=== PATIENT | female | born 1990 | race Caucasian/White ===

== ENCOUNTER 2023-05-24 11:14 | Emergency (ER) | payer BC, SELFPAY ==
[2023-05-24 11:26] VITALS: BP 138/101; PULSE 101; RESP 18; TEMP 36.6; O2SAT 97; BMI 35.7
--- NOTE | 2023-05-24 11:26 | CRLHL7_ITS ---
For Patients: As a result of the Cures Act, medical imaging exams and procedure reports are released immediately into your electronic medical record. You may view this report before your referring provider. If you have questions, please contact your health care provider. INDICATION: SOB, COVID TECHNIQUE: Chest 2 views. COMPARISON: None. FINDINGS: Cardiovascular and mediastinum: Heart size and vasculature are normal in caliber and appearance. Lungs and pleural spaces: Lungs are clear. No sign of infiltrate or mass. No sign of pleural effusion. No pneumothorax. Bones and soft tissues: No significant findings. IMPRESSION: No acute or significant findings. Dictated by Caleb Restrepo MD @ 05/24/2023 1:01:49 PM (Electronically Signed)
--- NOTE | 2023-05-24 11:36 | ED_ITS ---
HPI - General Adult General Date Seen: 05/24/23 Chief complaint: Cough Stated complaint: Covid+ Time Seen by Provider: 05/24/23 11:15 Source: patient Mode of arrival: EMS Limitations: no limitations History of Present Illness HPI narrative: Patient is a 32-year-old female presenting to emergency department for COVID. She had a positive COVID test this morning. She states symptoms started on Saturday. States she has been having earaches, sore throat, chills, cough. States she is feeling short of breath with ambulation and says she has some mild chest pain. She has been feeling very nauseated but has not had any vomiting. Also admits to having a headache. She states she feels dehydrated because she has been unable to drink anything due to the nausea. She states she has been coughing up a greenish brown sputum. She is concerned she has another infection with this. Denies lightheadedness, dizziness, numbness, vision changes, diarrhea, constipation, dysuria Related Data Home Medications Medication Instructions Recorded Confirmed cholecalciferol (vitamin D3) 125 125 mcg PO DAILY 05/24/23 05/24/23 mcg (5,000 unit) capsule ferrous sulfate PO 05/24/23 gabapentin .ROUTE 05/24/23 omeprazole magnesium PO 05/24/23 Allergies Allergy/AdvReac Type Severity Reaction Status Date / Time ciprofloxacin Allergy Intermediate Unknown Verified 05/24/23 11:41 hydrocodone Allergy Intermediate Unknown Verified 05/24/23 11:41 Review of Systems Status of ROS: Reports: 10 or more systems reviewed and unremarkable except as noted in History and below PFS PFS Social History Smoking Status: Current every day smoker What tobacco products do you use: cigarettes Second hand tobacco smoke exposure: Yes How often do you have a drink containing alcohol: never AUDIT-C Alcohol total score: 0 Non-prescribed substance use: denies use Exam Narrative: Exam Narrative: Const: Well-nourished, Well-developed, in mild distress Eyes: PERRL, no conjunctival injection, and symmetrical lids HENT: Atraumatic external nose and ears. Moist mucous membranes. Erythematous tympanic membranes bilaterally Neck: Symmetric, trachea midline, No thyromegaly. CVS: RRR, No murmurs or gallops. Peripheral pulses 2+ and equal in all extremities RESP: Unlabored respiratory effort. Clear to auscultation bilaterally. GI: Nontender/Nondistended, No rebound or guarding. MSK:Extremities w/o deformity, Normal Active ROM Skin: Warm, Dry. No rashes or lesions. Neuro: Normal Muscle tone, No focal neurological deficits. Psych: Awake, Alert, & Oriented x3. Appropriate mood and affect. Const: Vital Signs, click to edit/add: Vital Signs - 24 hr 05/24/23 11:26 Temperature 97.8 F Pulse Rate [Pulse Oximeter] 101 H Respiratory Rate 18 Blood Pressure [Le ft Upper Arm] 138/101 H Pulse Oximetry 97 Oxygen Delivery Me thod Room Air Course Vital Signs Vital signs: Initial Vital Signs Respiratory Effort Normal 05/24/23 11:20 Respiratory Depth Normal 05/24/23 11:20 Respiratory Pattern Normal 05/24/23 11:20 Vital Signs Temperature 97.8 F 05/24/23 11:26 Pulse Rate 101 H 05/24/23 11:26 Respiratory Rate 18 05/24/23 11:26 Blood Pressure 138/101 H 05/24/23 11:26 Pulse Oximetry 97 05/24/23 11:26 Oxygen Delivery Method Room Air 05/24/23 11:26 Temperature 97.8 F 05/24/23 11:26 Pulse Rate 101 H 05/24/23 11:26 Respiratory Rate 18 05/24/23 11:26 Blood Pressure 138/101 H 05/24/23 11:26 Pulse Oximetry 97 05/24/23 11:26 Oxygen Delivery Method Room Air 05/24/23 11:26 Medications Administered Medications: Discontinued Medications Generic Name Dose Route Start Last Admin Trade Name Freq PRN Reason Stop Dose Admin Ondansetron HCl 4 mg 05/24/23 11:26 05/24/23 11:40 Ondansetron Odt 4 Mg Tab PO 05/24/23 11:27 4 mg ONCE ONE Administration Medical Decision Making MDM Narrative Medical decision making narrative: Patient is a 32-year-old female presenting to emergency department for COVID. She is having associated nausea and ear pain. Her ears do look inflamed bilaterally. This is likely viral in nature considering she has COVID. She is complaining about some mild chest pain and shortness of breath but again this is likely COVID related and not believe a full ACS workup is indicated. We will do a chest x-ray to look for any signs of pneumonia. Zofran given for nausea. On chest x-ray not see any obvious pneumonia the with an apparent bilateral ear infection and coughing up the leg green and brown sputum I will treat her with some antibiotics. While this all could be viral in nature I would is reasonable to treat for possible superimposed infection. She will be given a prescription Zofran at discharge along with azithromycin. She is agreeable with this plan. They were sent to [facility] Discharge Plan Discharge Clinical Impression: COVID Otitis media Qualifiers: Otitis media type: unspecified Chronicity: acute Qualified Code(s): H66.90 - Otitis media, unspecified, unspecified ear Patient Disposition: Home, Self-Care Condition: Improved Instructions: COVID-19 (Coronavirus Disease 2019) (ED) Additional Instructions: Take the antibiotics as directed. Return to emergency department for new worsening symptoms Prescriptions: No Action gabapentin .ROUTE ferrous sulfate [Iron (ferrous sulfate)] PO omeprazole magnesium [Prilosec OTC] PO cholecalciferol (vitamin D3) 125 mcg (5,000 unit) capsule 125 mcg PO DAILY Follow Up/Referrals: Provider,Not a Local [Primary Care Provider] - Stand Alone Forms: [employer] Info Instructions
[2023-05-24] MEDS: ONDANSETRON ODT 4 MG TAB PO (11:40)
--- NOTE | 2023-05-24 13:13 | ED.NURSE ---
Bryson called via insurance [employer] for Pt.
== END 2023-05-24 15:39 | disposition home or self-care (01) ==
PROVIDERS: Emergency Provider Student in an Organized Health Care Education/Training Program
DX: U07.1 COVID-19 (principal); H66.93 Otitis media, unspecified, bilateral
CPT/HCPCS: 71046; 99283; A9270

== ENCOUNTER 2023-06-04 21:22 | Emergency (ER) | payer BC, SELFPAY ==
[2023-06-04 21:30] VITALS: BP 130/83; PULSE 100; RESP 14; TEMP 37.8; O2SAT 99; BMI 37.1
--- NOTE | 2023-06-04 22:11 | CRLHL7_ITS ---
For Patients: As a result of the Century Cures Act, medical imaging exams and procedure reports are released immediately into your electronic medical record. You may view this report before your referring provider. If you have questions, please contact your health care provider. INDICATION: Trauma. TECHNIQUE: Multiplanar CT examination of the head was performed without the use of intravenous contrast. COMPARISON: None. FINDINGS: No loss of ernandez-white differentiation suggestive of recent territorial infarct. No intracranial hemorrhage, abnormal extra-axial fluid collection or midline shift. The ventricles and cerebral sulci are normal in caliber. The basal cisterns are patent. The visualized paranasal sinuses and mastoid air cells are clear. The visualized orbits and calvarium are unremarkable. The cerebellar tonsils are in normal position. IMPRESSION: No acute intracranial findings. Please note that all CT scans at this facility use dose modulation, iterative reconstruction, and/or weight-based dosing when appropriate to reduce radiation dose to as low as reasonably achievable. Dictated by Asif Lord MD @ 06/04/2023 11:51:31 PM (Electronically Signed)
[2023-06-04] MEDS: 0.9 % SODIUM CHLORIDE 1000 ml 1,000 ML IV (22:30)
--- NOTE | 2023-06-04 22:30 | ED.GENADULT ---
HPI - General Adult General Date Seen: 06/04/23 Chief complaint: Ear/Nose/Throat Problem Stated complaint: Sinus infection Time Seen by Provider: 06/04/23 21:28 History of Present Illness HPI narrative: This is a 32-year-old female brought to the ER today by EMS from her home for evaluation of headache, ear pain, sore throat, and facial pain. History from paramedics is that she was recently diagnosed with COVID and and also treated with a course of antibiotics for possible sinuses or ear infection. She had gotten worse today so went to the medical center now per [place]. She was apparently given a prescription for a new antibiotic. She had taken a dose that today but had worsening pain so called the ambulance. She had stable vitals EN route. In review of her records through [facility] through [employer], she has a past medical history of chronic GERD, environmental allergies, depression, PTSD, insomnia, anxiety, asthma, history of meth use, nicotine use, restless legs. No history of cancer, diabetes, or immunosuppression listed. In review of her records through [employer] care [employer], there is a call that the patient was trying to get a refill of her psych medications from Dr. Gibson. Apparently her psychiatrist had left the facility. There is a note from the nurse practitioner Katherine Judd from this morning 06/04 at 9:20 a.m. in the morning.. Notes indicate that she had is 10 days status post COVID. She has a 2 day history of worsening cough and ear pain with minor sore throat. Exam revealed erythema, injection, and cloudy effusion on both ear,. Rapid strep antigen was negative. Supportive care was recommended. Prescription for amoxicillin 875 mg b.i.d. for 7 days was prescribed. Also Tessalon for cough Reviewed the patient's medical record from [place] indicates that she was seen here in the ER on 05/24. She had cough, nasal congestion, sore throat, ear pain and had tested positive that day with an at home COVID test. Chest x-ray in the ER that day was normal. Exam revealed bilateral otitis media. She was treated with course of antibiotics (not in the records, and patient cannot recall which one, possibly amoxicillin? ) She says that a lot of her symptoms of COVID had gotten better. About 2 days ago she has had recurring symptoms with now worsening congestion, bad sore throat, facial pain, bilateral ear pain. She also running fevers. She is feeling weak. She is nauseous. She also feels a little bit disoriented, nauseous. Related Data Home Medications Medication Instructions Recorded Confirmed cholecalciferol (vitamin D3) 125 125 mcg PO DAILY 05/24/23 06/04/23 mcg (5,000 unit) capsule ferrous sulfate PO 05/24/23 gabapentin .Route 05/24/23 omeprazole magnesium PO 05/24/23 albuterol sulfate 2.5 mg/3 mL mg 06/04/23 (0.083 %) solution for nebulization albuterol sulfate 90 mcg/actuation 1 - 2 puff inhalation Q6H PRN 06/04/23 06/04/23 aerosol inhaler (Ventolin HFA) wheezing amoxicillin 875 mg tablet 875 mg PO BID 06/04/23 06/04/23 benzonatate 200 mg capsule PO 06/04/23 cetirizine 10 mg tablet 10 mg PO DAILY 06/04/23 06/04/23 cholecalciferol (vitamin D3) 1,250 1,250 mcg PO 06/04/23 mcg (50,000 unit) capsule cholecalciferol (vitamin D3) 25 75 mcg PO DAILY 06/04/23 06/04/23 mcg (1,000 unit) tablet clonidine HCl 0.2 mg tablet 0.2 mg PO QPM 06/04/23 06/04/23 dextroamphetamine-amphetamine 20 1 tab PO DAILY 06/04/23 06/04/23 mg tablet etonogestrel 0.12 mg-ethinyl vag ring vaginal 06/04/23 estradiol 0.015 mg/24 hr vaginal ring (EluRyng) ferrous sulfate 325 mg (65 mg 325 mg PO QPM 06/04/23 06/04/23 iron) tablet,delayed release fluconazole 150 mg tablet 150 mg PO Q3D 06/04/23 06/04/23 gabapentin 300 mg capsule mg PO 06/04/23 hydroxyzine HCl 25 mg tablet mg PO 06/04/23 ibuprofen 600 mg tablet 600 mg PO Q6H PRN 06/04/23 06/04/23 omeprazole 40 mg capsule,delayed 40 mg PO DAILY 06/04/23 06/04/23 release ondansetron 4 mg disintegrating 4 mg PO Q8H PRN 06/04/23 06/04/23 tablet ondansetron 8 mg disintegrating mg PO 06/04/23 tablet oxycodone-acetaminophen 5 mg-325 tab PO 06/04/23 mg tablet quetiapine 100 mg tablet mg PO 06/04/23 quetiapine 50 mg tablet 50 mg PO QPM 06/04/23 06/04/23 Previous Rx's Medication Instructions Recorded cefdinir 300 mg capsule 300 mg PO BID 10 days #20 caps 06/05/23 ondansetron 4 mg disintegrating 4 mg PO Q8H PRN nausea and 06/05/23 tablet vomiting 4 days #10 tabs Allergies Allergy/AdvReac Type Severity Reaction Status Date / Time ciprofloxacin Allergy Severe Anaphylaxis Verified 06/04/23 21:38 hydrocodone Allergy Intermediate Unknown Verified 06/04/23 21:38 [facility] Social History Smoking Status: Heavy tobacco smoker What tobacco products do you use: cigarettes Smoking packs per day: 0.5 Smoking cigarettes per day: 10.0 Years smoked: 18 Smoking pack-years: 9.00 Do you use any of these nicotine containing products: None Second hand tobacco smoke exposure: Yes How often do you have a drink containing alcohol: never AUDIT-C Alcohol total score: 0 Non-prescribed substance use: denies use Exam Narrative: Exam Narrative: Constitutional: Appears well-developed and well-nourished. Alert. Conversant. Non toxic. HENT: Head: Atraumatic. No depressed skull fracture, Raccoon Eyes, Frey's sign, or hemotympanum. Face normal. TMs normal Nose: Nose normal. Right ear: Mastoid and pinna and canal are normal. TM is erythematous and bulging with opaque fluid behind it. Left ear: Mastoid and pinna and canal are normal. TM is brightly erythematous and bulging with opaque fluid behind. No evidence for any canal foreign bodies. No sign of TM perforation and either ear. Mouth/Throat: Oral mucosa is clear and moist. no trismus. Pharynx minimally erythematous.. Tonsils symmetric. No tonsillar enlargement, erythema, or exudate. Uvula midline. Phonation normal. Airway widely patent. No trismus. Eyes: Conjunctivae normal. EOM normal. Pupils equal, round, and reactive to light. No scleral icterus. Neck: Normal range of motion. Neck supple. No tracheal deviation present. Cardiovascular: Normal rate, regular rhythm. No gallop. No friction rub. No murmur heard. Symmetric radial artery pulses Pulmonary/Chest: Effort normal. No stridor. No respiratory distress. No wheezes. No rales. No rhonchi . No tenderness. Abdominal: Soft. Bowel sounds normal. No distension. No mass. No palpable HSM. No tenderness. No rebound. No guarding. Musculoskeletal: RUE: Normal range of motion. No tenderness. No deformity LUE: Normal range of motion. No tenderness. No deformity RLE: Normal range of motion. No edema. No tenderness. No deformity LLE: Normal range of motion. No edema. No tenderness. No deformity Lymph: No cervical adenopathy. Neurological: Alert and oriented to person, place, and time. Normal strength. CN II-VII intact. No sensory deficit. GCS eye subscore is 4. GCS verbal subscore is 5. GCS motor subscore is 6. Normal coordination Skin: Skin is warm and dry. No rash noted. No pallor. Normal capillary refill. Psychiatric: Normal mood. Normal affect. Const: Vital Signs, click to edit/add: Vital Signs - 24 hr 06/04/23 21:30 06/04/23 23:45 Temperature 100.0 F H 98.6 F Pulse Rate [Pulse Oximeter] 100 88 Respiratory Rate 14 18 Blood Pressure [Le ft Upper Arm] 130/83 120/68 Pulse Oximetry 99 97 Oxygen Delivery Me thod Room Air Room Air Course Vital Signs Vital signs: Initial Vital Signs Temperature 100.0 F H 06/04/23 21:30 Temperature Source Temporal Artery Scan 06/04/23 21:30 Pulse Rate 100 06/04/23 21:30 Respiratory Rate 14 06/04/23 21:30 Blood Pressure 130/83 06/04/23 21:30 Blood Pressure Mean 98 06/04/23 21:30 Blood Pressure Position Sitting 06/04/23 21:30 Pulse Oximetry 99 06/04/23 21:30 Oxygen Delivery Method Room Air 06/04/23 21:30 Vital Signs Temperature 100.0 F H 06/04/23 21:30 Pulse Rate 100 06/04/23 21:30 Respiratory Rate 14 06/04/23 21:30 Blood Pressure 130/83 06/04/23 21:30 Pulse Oximetry 99 06/04/23 21:30 Oxygen Delivery Method Room Air 06/04/23 21:30 Temperature 98.6 F 06/04/23 23:45 Pulse Rate 88 06/04/23 23:45 Respiratory Rate 18 06/04/23 23:45 Blood Pressure 120/68 06/04/23 23:45 Pulse Oximetry 97 06/04/23 23:45 Oxygen Delivery Method Room Air 06/04/23 23:45 Medications Administered Medications: Discontinued Medications Generic Name Dose Route Start Last Admin Trade Name Renata PRN Reason Stop Dose Admin Sodium Chloride 1,000 mls @ 1,000 mls/hr 06/04/23 22:15 06/05/23 00:10 0.9 % Sodium Chloride 1000 Ml IV 06/04/23 23:14 Infused .Q1H DK Infusion Ketorolac Tromethamine 15 mg 06/04/23 22:11 06/04/23 22:35 Ketorolac 15 Mg/Ml Inj IVP 06/04/23 22:12 15 mg ONCE ONE Administration Ondansetron HCl 4 mg 06/04/23 22:11 06/04/23 22:37 Ondansetron 2 Mg/Ml Inj IVP 06/04/23 22:12 4 mg ONCE ONE Administration Medical Decision Making MDM Narrative Medical decision making narrative: 32-year-old female with a complex past history presenting to the ER today by EMS from home for evaluation of bad sore throat, ear pain, malaise, nausea, feeling disoriented. Differential is quite broad. She did recently have coronavirus and did have a positive at-home test about 10 days ago. During that COVID illness she also had ear infections so was put on azithromycin. It sounds like most of her COVID symptoms had gotten better. However she started having crying symptoms of ear pain, sore throat, cough, as above, 2 days ago. She went back to the urgent care in [place] today and was given a prescription for amoxicillin for her ears. She came back to the ER tonight by EMS because she feels like her ear pain and sore throat or worse. In terms of her sore throat she was [place] negative for strep today. I suspect she may have mono. LFTs are mildly abnormal. This would explain a strep negative pharyngitis. At this point on my exam there is no evidence for uvulitis, peritonsillar abscess, retropharyngeal abscess. No trismus. No airway compromise. No neck swelling. No stridor. She definitely has ongoing bilateral otitis media with significant erythema and opaque fluid behind both of her ear drums. She feels like the amoxicillin that was prescribed by the [facility] is insufficient. Ice really tried to reassure her that amoxicillin would be a 1st line antibiotic for otitis. However we will switch her from amoxicillin to cephalosporin. If she does have a mono syndrome, this might help avoid a ampicillin/mono rash. At this point no evidence for otitis externa, mastoiditis, or intracranial extension of a your infection on her noncontrast head CT. Initially of scans certain that she actually had a bad headache, we obtained head CT which is negative for any mass or obvious intracranial abnormality or any obvious dural sinus thrombosis from recent COVID. Subsequently her HPI changed bit and she is really not here for headache but more for sore throat and ear pain. She does have leukocytosis of 20. No neck stiffness. Overall she is feeling much better after fluids and Toradol. At this point I have low clinical suspicion for bacterial meningitis and feel that the risk/discomfort of lumbar puncture would outweigh the on likely benefit. She is feeling better after fluids and meds here in the ER and is requesting discharge home. She has already called for her right. Lab Data Labs: Lab Results 06/04/23 06/04/23 06/04/23 Range/Units 22:30 23:30 23:38 WBC 20.06 H (4.50-11.00) K/uL RBC 4.38 (4.00-5.20) m/uL Hgb 12.8 (12.0-16.0) gm/dL Hct 37.2 (33.0-51.0) % MCV 85 (80-100) fL MCH 29 (26-34) pg MCHC 34 (32-36) gm/dL RDW Coeff of [place] 13.0 (11.5-15.5) % Plt Count 318 (140-440) K/uL Neut % (Auto) 69.4 (42.0-72.0) % Lymph % (Auto) 19.0 L (20-44) % [place] % (Auto) 8.0 (0.0-11.0) % Eos % (Auto) 2.1 (0.0-7.0) % Baso % (Auto) 0.3 (0.0-3.0) % Neut # (Auto) 13.90 H (1.7-7.0) K/uL Lymph # (Auto) 3.80 H (0.90-2.90) K/uL Brewster # (Auto) 1.60 H (0.00-0.90) K/UL Eos # (Auto) 0.40 (0.00-0.50) K/uL Baso # (Auto) 0.10 (0.00-0.30) K/uL Abs Immat Gran (auto) 0.20 (0.00-0.30) K/uL Imm/Tot Granulo (auto) 1.2 % Sodium 136 (135-149) mmol/L Potassium 3.7 (3.6-5.1) mmol/L Chloride 105 (96-114) mmol/L Carbon Dioxide 24 (20-32) mmol/L Anion Gap 7 (7-15) mEq/L BUN 10 (5-24) mg/dL Creatinine 0.6 (0.5-1.5) mg/dL Estimated Creat Clear 95.79 Estimated GFR 121 ml/min Glucose 112 (60-115) mg/dL Lactate 0.6 (0.5-1.9) mmol/L Calcium 9.0 (8.4-10.6) mg/dL Total Bilirubin 0.3 (0.1-1.5) mg/dL AST 44 H (12-35) U/L ALT 58 H (4-35) U/L Alkaline Phosphatase 76 (40-150) U/L Total Protein 7.8 (6.0-8.3) g/dL Albumin 4.6 (3.3-5.0) g/dL HCG, Qual Negative (Negative) SARS-CoV-2 (PCR) Negative SARS-CoV-2 (Negative) Monoscreen Negative (Negative) Influenza Type A (PCR) Negative PCR FLU A (Negative) Influenza Type B (PCR) Negative PCR FLU B (Negative) RSV (PCR) Negative PCR RSV (Negative) Lab Acknowledgement Test Added Discharge Plan Discharge Clinical Impression: Abnormal LFTs, Otitis media, Pharyngitis Patient Disposition: Home, Self-Care Condition: Stable Instructions: Pharyngitis (ED), Ear Infection (ED), Upper Respiratory Infection (DC) Additional Instructions: As we discussed, please come back to the ER right away if you have worsening sore throat, trouble breathing, severe headache, uncontrolled nausea or vomiting, confusion or any other worsening. Her labs show us that you have an elevated white blood cell count, which is indication the your body is fighting off your infection. Your liver function tests are also very mildly abnormal. I suspect this is probably a reaction to a viral infection such as mono. Please follow-up with your regular doctor to have your liver function labs rechecked and to repeat the mono test in about 1 week. Please stop the amoxicillin and switch to a different antibiotic-called Omnicef. Use Zofran if needed for nausea. Use [place] if needed for pain but be careful because this can cause drowsiness, sedation, constipation, and can be addictive. Prescriptions: New cefdinir 300 mg capsule 300 mg PO BID 10 Days Qty: 20 0RF ondansetron 4 mg tablet,disintegrating 4 mg PO Q8H PRN (Reason: nausea and vomiting) 4 Days Qty: 10 0RF No Action gabapentin .Route ferrous sulfate [Iron (ferrous sulfate)] PO omeprazole magnesium [Prilosec OTC] PO cholecalciferol (vitamin D3) 125 mcg (5,000 unit) capsule 125 mcg PO DAILY albuterol sulfate 2.5 mg /3 mL (0.083 %) solution for nebulization Patient Comments: [NO ORIGINAL SIG] cetirizine 10 mg tablet 10 mg PO DAILY fluconazole 150 mg tablet 150 mg PO Q3D benzonatate 200 mg capsule PO omeprazole 40 mg capsule,delayed release(DR/EC) 40 mg PO DAILY quetiapine 100 mg tablet PO ondansetron 8 mg tablet,disintegrating PO oxycodone-acetaminophen 5-325 mg tablet PO clonidine HCl 0.2 mg tablet 0.2 mg PO QPM amoxicillin 875 mg tablet 875 mg PO BID dextroamphetamine-amphetamine 20 mg tablet 1 tab PO DAILY gabapentin 300 mg capsule PO hydroxyzine HCl 25 mg tablet PO ibuprofen 600 mg tablet 600 mg PO Q6H PRN albuterol sulfate [Ventolin HFA] 90 mcg/actuation HFA aerosol inhaler 1 - 2 puff inhalation Q6H PRN (Reason: wheezing) ferrous sulfate 325 mg (65 mg iron) tablet,delayed release (DR/EC) 325 mg PO QPM ondansetron 4 mg tablet,disintegrating 4 mg PO Q8H PRN etonogestrel-ethinyl estradiol [EluRyng] 0.12-0.015 mg/24 hr ring vaginal quetiapine 50 mg tablet 50 mg PO QPM cholecalciferol (vitamin D3) 25 mcg (1,000 unit) tablet 75 mcg PO DAILY cholecalciferol (vitamin D3) 1,250 mcg (50,000 unit) capsule 1,250 mcg PO Follow Up/Referrals: Cuong Mayes MD [Primary Care Provider] - Stand Alone Forms: [facility] Info Instructions
[2023-06-04] MEDS: KETOROLAC 15 MG/ML inj IVP (22:35)
[2023-06-04 22:36] LABS: Lactate* 0.6 mmol/L (0.5-1.9)
[2023-06-04] MEDS: ONDANSETRON 2 MG/ML inj 4 MG IVP (22:37)
[2023-06-04 22:45] LABS: Mono Screen* Negative (Negative)
[2023-06-04 22:52] LABS: Albumin* 4.6 g/dL (3.3-5.0)
[2023-06-04 22:53] LABS: Chloride* 105 mmol/L (96-114); Potassium* 3.7 mmol/L (3.6-5.1); Sodium* 136 mmol/L (135-149)
[2023-06-04 22:55] LABS: Anion Gap 7 mEq/L (7-15); Aspartate Amino Transferase* 44 U/L (12-35); Bilirubin Total* 0.3 mg/dL (0.1-1.5); Carbon Dioxide* 24 mmol/L (20-32); Creatinine* 0.6 mg/dL (0.5-1.5); Est. Creatinine Clearance* 95.79; Estimated Glomerular Filt Rate 121 ml/min
[2023-06-04 22:56] LABS: Alanine Aminotransferase* 58 U/L (4-35); Alkaline Phosphatase* 76 U/L (40-150); Blood Urea Nitrogen* 10 mg/dL (5-24); Glucose* 112 mg/dL (60-115); Total Protein* 7.8 g/dL (6.0-8.3)
[2023-06-04 23:00] LABS: Basophils Percent Auto 0.3 % (0.0-3.0); Eosinophils Percent Auto 2.1 % (0.0-7.0); Hematocrit 37.2 % (33.0-51.0); Hemoglobin* 12.8 gm/dL (12.0-16.0); Immature Granulocytes Pct Auto 1.2 %; Mean Corpuscular HGB Conc 34 gm/dL (32-36); Mean Corpuscular Hemoglobin 29 pg (26-34); Mean Corpuscular Volume 85 fL (80-100); Neutrophils Percent Auto 69.4 % (42.0-72.0); Platelet Count* 318 K/uL (140-440); Red Blood Count 4.38 m/uL (4.00-5.20); White Blood Count* 20.06 K/uL (4.50-11.00)
[2023-06-04 23:02] LABS: Slide Review Reflex No
[2023-06-04 23:45] VITALS: BP 120/68; PULSE 88; RESP 18; TEMP 37; O2SAT 97
[2023-06-04 23:47] LABS: HCG Qualitative Serum* Negative (Negative)
[2023-06-04 23:50] LABS: PCR FLU A Negative PCR FLU A (Negative); PCR FLU B Negative PCR FLU B (Negative); PCR RSV Negative PCR RSV (Negative); SARS PCR* Negative SARS-CoV-2 (Negative)
== END 2023-06-05 01:27 | disposition home or self-care (01) ==
PROVIDERS: Emergency Provider Emergency Medicine; PCP Family Medicine
DX: R79.89 Other specified abnormal findings of blood chemistry (principal); H66.93 Otitis media, unspecified, bilateral; J02.9 Acute pharyngitis, unspecified
CPT/HCPCS: 36415; 70450; 80053; 83605; 84703; 85025; 86308; 87631; 96361; 96374; 96375; 96376; 99284; J1885; J2405; J7030

== ENCOUNTER 2023-08-15 08:15 | Emergency (ER) | payer BC, SELFPAY ==
[2023-08-15 08:17] VITALS: BP 134/89; PULSE 93; RESP 16; TEMP 36.9; O2SAT 98; BMI 37.7
--- NOTE | 2023-08-15 08:48 | ED_ITS ---
HPI - General Adult General Date Seen: 08/15/23 Chief complaint: Back Injury/Pain Stated complaint: back pain Time Seen by Provider: 08/15/23 08:27 Source: patient, RN notes reviewed and old records reviewed Mode of arrival: ambulatory Limitations: no limitations History of Present Illness HPI narrative: Patient is a 32-year-old woman here for evaluation of right lumbar pain. She says it has been there since yesterday morning when she woke up, she thinks she may have injured it lifting a dog at work. 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 She has sharp, she says nerve like pain if she turns, bends or lifts. She feels better if she lays still. She is supposed to work today but does not think she can. She does not have radiating pain. Every once in a while she has some tingling on the bottom of her left foot. No bowel or bladder complaints. No fevers or unexpected weight loss. No history of significant back pain. She has tried ibuprofen without relief. She does drink, denies alcohol or drug use. Medications reviewed. Related Data Home Medications Medication Instructions Recorded Confirmed cholecalciferol (vitamin D3) 125 125 mcg PO DAILY 05/24/23 06/04/23 mcg (5,000 unit) capsule ferrous sulfate PO 05/24/23 gabapentin .Route 05/24/23 omeprazole magnesium PO 05/24/23 albuterol sulfate 2.5 mg/3 mL mg 06/04/23 (0.083 %) solution for nebulization albuterol sulfate 90 mcg/actuation 1 - 2 puff inhalation Q6H PRN 06/04/23 06/04/23 aerosol inhaler (Ventolin HFA) wheezing amoxicillin 875 mg tablet 875 mg PO BID 06/04/23 06/04/23 benzonatate 200 mg capsule PO 06/04/23 cetirizine 10 mg tablet 10 mg PO DAILY 06/04/23 06/04/23 cholecalciferol (vitamin D3) 1,250 1,250 mcg PO 06/04/23 mcg (50,000 unit) capsule cholecalciferol (vitamin D3) 25 75 mcg PO DAILY 06/04/23 06/04/23 mcg (1,000 unit) tablet clonidine HCl 0.2 mg tablet 0.2 mg PO QPM 06/04/23 06/04/23 dextroamphetamine-amphetamine 20 1 tab PO DAILY 06/04/23 06/04/23 mg tablet etonogestrel 0.12 mg-ethinyl vag ring vaginal 06/04/23 estradiol 0.015 mg/24 hr vaginal ring (EluRyng) ferrous sulfate 325 mg (65 mg 325 mg PO QPM 06/04/23 06/04/23 iron) tablet,delayed release fluconazole 150 mg tablet 150 mg PO Q3D 06/04/23 06/04/23 gabapentin 300 mg capsule mg PO 06/04/23 hydroxyzine HCl 25 mg tablet mg PO 06/04/23 ibuprofen 600 mg tablet 600 mg PO Q6H PRN 06/04/23 06/04/23 omeprazole 40 mg capsule,delayed 40 mg PO DAILY 06/04/23 06/04/23 release ondansetron 4 mg disintegrating 4 mg PO Q8H PRN 06/04/23 06/04/23 tablet ondansetron 8 mg disintegrating mg PO 06/04/23 tablet oxycodone-acetaminophen 5 mg-325 tab PO 06/04/23 mg tablet quetiapine 100 mg tablet mg PO 06/04/23 quetiapine 50 mg tablet 50 mg PO QPM 06/04/23 06/04/23 Previous Rx's Medication Instructions Recorded cefdinir 300 mg capsule 300 mg PO BID 10 days #20 caps 06/05/23 ondansetron 4 mg disintegrating 4 mg PO Q8H PRN nausea and 06/05/23 tablet vomiting 4 days #10 tabs Allergies Allergy/AdvReac Type Severity Reaction Status Date / Time ciprofloxacin Allergy Severe Anaphylaxis Verified 06/04/23 21:38 hydrocodone Allergy Intermediate Unknown Verified 06/04/23 21:38 Review of Systems Status of ROS: Reports: 6 or more systems reviewed and unremarkable except as noted in History and below [facility] Social History Smoking Status: Heavy tobacco smoker What tobacco products do you use: cigarettes Smoking packs per day: 0.5 Smoking cigarettes per day: 10.0 Years smoked: 18 Smoking pack-years: 9.00 Do you use any of these nicotine containing products: None Second hand tobacco smoke exposure: Yes How often do you have a drink containing alcohol: never AUDIT-C Alcohol total score: 0 Non-prescribed substance use: denies use Exam Narrative: Exam Narrative: Vital signs reviewed In general, alert, well-appearing woman, looks comfortable lying in bed. Heart: Regular rate and rhythm. Lungs: Clear. No CVA tenderness. Back: She does have some tenderness to the lumbar musculature on the right. No bruising or swelling. Extremities: Well perfused, no edema. Neurologic: She has 5 of 5 strength in bilateral lower extremities, sensation is intact to light touch. Skin: Warm and dry, well perfused. Const: Vital Signs, click to edit/add: Vital Signs - 24 hr 08/15/23 08:17 Temperature 98.5 F Pulse Rate [Pulse Oximeter] 93 Respiratory Rate 16 Blood Pressure [Ri ght Upper Arm] 134/89 Pulse Oximetry 98 Oxygen Delivery Me thod Room Air Documenting provider has reviewed patient's vital signs: yes Course Course ED Course: Discussed with her at this time this likely represents muscle spasm, no clearly radicular symptoms although if not improving with conservative therapy over the next week or so, would recommend primary care follow-up and consideration of imaging at that time. In the meantime, ibuprofen 400 mg plus Tylenol 1000 mg 3 times daily with food. Prescribed Flexeril as needed for muscle relaxer, ice and/or heat. Return for acute worsening, severe uncontrolled pain or new sympto ms such as fever, chills, vomiting etcetera. Vital Signs Vital signs: Initial Vital Signs Temperature 98.5 F 08/15/23 08:17 Temperature Source Temporal Artery Scan 08/15/23 08:17 Pulse Rate 93 08/15/23 08:17 Respiratory Rate 16 08/15/23 08:17 Blood Pressure 134/89 08/15/23 08:17 Blood Pressure Mean 104 08/15/23 08:17 Blood Pressure Position Sitting 08/15/23 08:17 Pulse Oximetry 98 08/15/23 08:17 Oxygen Delivery Method Room Air 08/15/23 08:17 Vital Signs Temperature 98.5 F 08/15/23 08:17 Pulse Rate 93 08/15/23 08:17 Respiratory Rate 16 08/15/23 08:17 Blood Pressure 134/89 08/15/23 08:17 Pulse Oximetry 98 08/15/23 08:17 Oxygen Delivery Method Room Air 08/15/23 08:17 Temperature 98.5 F 08/15/23 08:17 Pulse Rate 93 08/15/23 08:17 Respiratory Rate 16 08/15/23 08:17 Blood Pressure 134/89 08/15/23 08:17 Pulse Oximetry 98 08/15/23 08:17 Oxygen Delivery Method Room Air 08/15/23 08:17 Discharge Plan Discharge Clinical Impression: Low back pain Patient Disposition: Home, Self-Care Condition: Stable Instructions: Acute Low Back Pain (ED) Additional Instructions: Ibuprofen 400 mg plus Tylenol 1000 mg 3 times daily with food for the next several days up to 1 week. Muscle relaxer as needed. Topical measures such as ice or heat may be helpful. If you are not improving with conservative measures over the next week, follow-up with primary care, consider imaging. For acute worsening, severe uncontrolled pain, new symptoms such as fevers, chills, vomiting, etcetera, return to the emergency department for repeat evaluation. Prescriptions: No Action gabapentin .Route ferrous sulfate [Iron (ferrous sulfate)] PO omeprazole magnesium [Prilosec OTC] PO cholecalciferol (vitamin D3) 125 mcg (5,000 unit) capsule 125 mcg PO DAILY albuterol sulfate 2.5 mg /3 mL (0.083 %) solution for nebulization Patient Comments: [NO ORIGINAL SIG] cetirizine 10 mg tablet 10 mg PO DAILY fluconazole 150 mg tablet 150 mg PO Q3D benzonatate 200 mg capsule PO omeprazole 40 mg capsule,delayed release(DR/EC) 40 mg PO DAILY quetiapine 100 mg tablet PO ondansetron 8 mg tablet,disintegrating PO oxycodone-acetaminophen 5-325 mg tablet PO clonidine HCl 0.2 mg tablet 0.2 mg PO QPM amoxicillin 875 mg tablet 875 mg PO BID dextroamphetamine-amphetamine 20 mg tablet 1 tab PO DAILY gabapentin 300 mg capsule PO hydroxyzine HCl 25 mg tablet PO ibuprofen 600 mg tablet 600 mg PO Q6H PRN albuterol sulfate [Ventolin HFA] 90 mcg/actuation HFA aerosol inhaler 1 - 2 puff inhalation Q6H PRN (Reason: wheezing) ferrous sulfate 325 mg (65 mg iron) tablet,delayed release (DR/EC) 325 mg PO QPM ondansetron 4 mg tablet,disintegrating 4 mg PO Q8H PRN etonogestrel-ethinyl estradiol [EluRyng] 0.12-0.015 mg/24 hr ring vaginal quetiapine 50 mg tablet 50 mg PO QPM cholecalciferol (vitamin D3) 25 mcg (1,000 unit) tablet 75 mcg PO DAILY cholecalciferol (vitamin D3) 1,250 mcg (50,000 unit) capsule 1,250 mcg PO cefdinir 300 mg capsule 300 mg PO BID 10 Days Qty: 20 0RF ondansetron 4 mg tablet,disintegrating 4 mg PO Q8H PRN (Reason: nausea and vomiting) 4 Days Qty: 10 0RF Follow Up/Referrals: Cuong Mayes MD [Primary Care Provider] - Stand Alone [facility] Info Inst[facility]
== END 2023-08-15 08:56 | disposition home or self-care (01) ==
PROVIDERS: Emergency Provider Emergency Medicine; PCP Family Medicine
DX: M54.50 Low back pain, unspecified (principal)
CPT/HCPCS: 99283; 99284

== ENCOUNTER 2023-09-02 09:57 | Emergency (ER) | payer BC, SELFPAY ==
[2023-09-02 10:00] VITALS: BP 128/88; PULSE 93; RESP 18; TEMP 36.4; O2SAT 98; BMI 38.7
--- NOTE | 2023-09-02 10:14 | XR_ITS ---
Patient: REYNOLD CULP Facility:?[facility] Patient ID:?[id number] Site Patient ID:?[id number]. Site :?[id number] Study:?XRay-Chest 2 IMAGES-09/02/2023 11:26:42 AM Ordering Physician:?DR. IBANEZ Final Report: INDICATION: Respiratory symptoms. TECHNIQUE: Chest 2 views. COMPARISON: None. FINDINGS: Cardiovascular and mediastinum: Heart size and vasculature are normal in caliber and appearance. Lungs and pleural spaces: Lungs are clear. No sign of infiltrate or mass. No sign of pleural effusion. No pneumothorax. Bones and soft tissues: No significant findings. IMPRESSION: No acute or significant findings. Dictated by Salvador Castillo MD @ 09/02/2023 11:40:08 AM Signed by:?Salvador Castillo MD @09/02/2023 11:40:08 AM (Electronic Signature)
--- NOTE | 2023-09-02 10:15 | ED.GENADULT ---
HPI - General Adult General Date Seen: 09/02/23 Chief complaint: Headache/Migraine Stated complaint: congestion/headaches/weakness Time Seen by Provider: 09/02/23 09:57 Source: patient Mode of arrival: ambulatory Limitations: no limitations History of Present Illness HPI narrative: Patient is a 32-year-old female presenting to the emergency department for flu-like symptoms. She states for the past 5 days she has been having some mild shortness of breath, increasing worsening headache, cough producing green sputum, muscle aches, fatigue. States symptoms seem to be getting worse with the past couple days. Her daughter was sick at home with viral symptoms but has since recovered. Has not had any fevers or chills. Been taking home cold medicine without improvement. Denies any chest pain. Denies vision changes, abdominal pain, diarrhea, constipation, numbness. Has some nausea but has not had any vomiting yet. Does states she is feeling very dehydrated despite drinking lots of water. Is concerned she needs antibiotics. No other sick contacts noted. No concerning medical problems. Related Data Home Medications Medication Instructions Recorded Confirmed ferrous sulfate PO 05/24/23 gabapentin .Route 05/24/23 omeprazole magnesium PO 05/24/23 albuterol sulfate 2.5 mg/3 mL 2.5 mg PRN 06/04/23 (0.083 %) solution for nebulization albuterol sulfate 90 mcg/actuation 1 - 2 puff inhalation Q6H PRN 06/04/23 09/02/23 aerosol inhaler (Ventolin HFA) wheezing cetirizine 10 mg tablet 10 mg PO DAILY 06/04/23 09/02/23 cholecalciferol (vitamin D3) 1,250 1,250 mcg PO TID 06/04/23 09/02/23 mcg (50,000 unit) capsule clonidine HCl 0.2 mg tablet 0.2 mg PO QPM 06/04/23 09/02/23 dextroamphetamine-amphetamine 20 1 tab PO DAILY 06/04/23 09/02/23 mg tablet etonogestrel 0.12 mg-ethinyl vag ring vaginal 06/04/23 estradiol 0.015 mg/24 hr vaginal ring (EluRyng) ferrous sulfate 325 mg (65 mg 325 mg PO QPM 06/04/23 09/02/23 iron) tablet,delayed release gabapentin 300 mg capsule 300 mg PO Q12H 06/04/23 09/02/23 hydroxyzine HCl 25 mg tablet 25 mg PO PRN 06/04/23 ibuprofen 600 mg tablet 600 mg PO Q6H PRN 06/04/23 09/02/23 omeprazole 40 mg capsule,delayed 40 mg PO DAILY 06/04/23 09/02/23 release ondansetron 4 mg disintegrating 4 mg PO Q8H PRN 06/04/23 06/04/23 tablet ondansetron 8 mg disintegrating mg PO 06/04/23 tablet quetiapine 100 mg tablet 100 mg PO DAILY 06/04/23 09/02/23 quetiapine 50 mg tablet 50 mg PO QPM 06/04/23 06/04/23 Previous Rx's Medication Instructions Recorded ondansetron 4 mg disintegrating 4 mg PO Q8H PRN nausea and 06/05/23 tablet vomiting 4 days #10 tabs Allergies Allergy/AdvReac Type Severity Reaction Status Date / Time ciprofloxacin Allergy Severe Anaphylaxis Verified 09/02/23 10:06 hydrocodone Allergy Intermediate Unknown Verified 09/02/23 10:06 Review of Systems Status of ROS: Reports: 10 or more systems reviewed and unremarkable except as noted in History and below [facility] Social History Smoking Status: Heavy tobacco smoker What tobacco products do you use: cigarettes Smoking packs per day: 0.5 Smoking cigarettes per day: 10.0 Years smoked: 18 Smoking pack-years: 9.00 Do you use any of these nicotine containing products: None Second hand tobacco smoke exposure: Yes How often do you have a drink containing alcohol: never AUDIT-C Alcohol total score: 0 Non-prescribed substance use: denies use service: No Exam Narrative: Exam Narrative: Const: Well-nourished, Well-developed, in mild distress Eyes: PERRL, no conjunctival injection, and symmetrical lids HENT: Atraumatic external nose and ears. Moist mucous membranes. Neck: Symmetric, trachea midline, No thyromegaly. CVS: RRR, No murmurs or gallops. Peripheral pulses 2+ and equal in all extremities RESP: Unlabored respiratory effort. Clear to auscultation bilaterally. GI: Nontender/Nondistended, No rebound or guarding. MSK:Extremities w/o deformity, Normal Active ROM Skin: Warm, Dry. No rashes or lesions. Neuro: Normal Muscle tone, No focal neurological deficits. Psych: Awake, Alert, & Oriented x3. Appropriate mood and affect. Const: Vital Signs, click to edit/add: Vital Signs - 24 hr 09/02/23 10:00 Temperature 97.6 F Pulse Rate [Pulse Oximeter] 93 Respiratory Rate 18 Blood Pressure [Ri ght Upper Arm] 128/88 Pulse Oximetry 98 Oxygen Delivery Me thod Room Air Course Vital Signs Vital signs: Initial Vital Signs Temperature 97.6 F 09/02/23 10:00 Temperature Source Temporal Artery Scan 09/02/23 10:00 Pulse Rate 93 09/02/23 10:00 Respiratory Rate 18 09/02/23 10:00 Blood Pressure 128/88 09/02/23 10:00 Blood Pressure Mean 101 09/02/23 10:00 Blood Pressure Position Sitting 09/02/23 10:00 Pulse Oximetry 98 09/02/23 10:00 Oxygen Delivery Method Room Air 09/02/23 10:00 Vital Signs Temperature 97.6 F 09/02/23 10:00 Pulse Rate 93 09/02/23 10:00 Respiratory Rate 18 09/02/23 10:00 Blood Pressure 128/88 09/02/23 10:00 Pulse Oximetry 98 09/02/23 10:00 Oxygen Delivery Method Room Air 09/02/23 10:00 Temperature 97.6 F 09/02/23 10:00 Pulse Rate 93 09/02/23 10:00 Respiratory Rate 18 09/02/23 10:00 Blood Pressure 128/88 09/02/23 10:00 Pulse Oximetry 98 09/02/23 10:00 Oxygen Delivery Method Room Air 09/02/23 10:00 Medications Administered Medications: Discontinued Medications Generic Name Dose Route Start Last Admin Trade Name Freq PRN Reason Stop Dose Admin Diphenhydramine HCl 25 mg 09/02/23 10:14 09/02/23 10:37 Diphenhydramine 50 Mg/Ml Inj IVP 09/02/23 10:15 25 mg ONCE ONE Administration Lactated Ringer's 1,000 mls @ 1,000 mls/hr 09/02/23 10:14 09/02/23 10:37 Lactated Ringers 1000 Ml IV 09/02/23 11:13 1,000 mls/hr .Q1H ONE Administration Metoclopramide HCl 10 mg 09/02/23 10:14 09/02/23 10:37 Metoclopramide Hcl 5 Mg/Ml Inj IVP 09/02/23 10:15 10 mg ONCE ONE Administration Medical Decision Making MDM Narrative Medical decision making narrative: Patient is a 32-year-old female presenting for flu-like symptoms. She took a home COVID test that was negative yesterday. Will do a chest x-ray showed the for signs of pneumonia. Does do CBC and BMP. Migraine cocktail given for her headache and dehydration. Her shortness breath is very mild in by her description sounds more infections and PE is unlikely. Is not having chest pain and ACS is very unlikely at this time. Patient's white blood cell count came slightly elevated at 12.74. While this could be a stress reaction could also be a sign of bacterial pneumonia. Chest x-ray shows no acute abnormalities as reviewed by myself and the radiologist. Her headache was improving after the medication. At this time why cannot definitively say she has pneumonia or not I will start her on azithromycin and treat her symptomatically. She is agreeable to this plan. Also be given Zofran. Both these were prescribed through [facility] Lab Data Labs: Lab Results 09/02/23 Range/Units 10:34 WBC 12.74 H (4.50-11.00) K/uL RBC 4.49 (4.00-5.20) m/uL Hgb 13.0 (12.0-16.0) gm/dL Hct 37.8 (33.0-51.0) % MCV 84 (80-100) fL MCH 29 (26-34) pg MCHC 34 (32-36) gm/dL RDW Coeff of [place] 12.7 (11.5-15.5) % Plt Count 273 (140-440) K/uL Neut % (Auto) 61.3 (42.0-72.0) % Lymph % (Auto) 27.6 (20-44) % [place] % (Auto) 5.3 (0.0-11.0) % Eos % (Auto) 4.7 (0.0-7.0) % Baso % (Auto) 0.5 (0.0-3.0) % Neut # (Auto) 7.80 H (1.7-7.0) K/uL Lymph # (Auto) 3.50 H (0.90-2.90) K/uL [place] # (Auto) 0.70 (0.00-0.90) K/UL Eos # (Auto) 0.60 H (0.00-0.50) K/uL Baso # (Auto) 0.10 (0.00-0.30) K/uL Abs Immat Gran (auto) 0.10 (0.00-0.30) K/uL Imm/Tot Granulo (auto) 0.6 % Sodium 136 (135-149) mmol/L Potassium 4.3 (3.6-5.1) mmol/L Chloride 105 (96-114) mmol/L Carbon Dioxide 24 (20-32) mmol/L Anion Gap 7 (7-15) mEq/L BUN 7 (5-24) mg/dL Creatinine 0.6 (0.5-1.5) mg/dL Estimated Creat Clear 95.79 Estimated GFR 121 ml/min Glucose 107 (60-115) mg/dL Calcium 9.2 (8.4-10.6) mg/dL SARS-CoV-2 (PCR) Negative SARS-CoV-2 (Negative) Influenza Type A (PCR) Negative PCR FLU A (Negative) Influenza Type B (PCR) Negative PCR FLU B (Negative) RSV (PCR) Negative PCR RSV (Negative) Imaging Data Chest x-ray: Attestation: I have reviewed the pertinent imaging results. Radiologist's impression: No acute or significant findings. Dictated by Salvador Castillo MD @ 09/02/2023 11:40:08 AM Discharge Plan Discharge Clinical Impression: Headache, Acute respiratory infection Patient Disposition: Home, Self-Care Condition: Improved Instructions: Pneumonia (ED) Additional Instructions: Well chest x-ray do not show any obvious pneumonia as this can sometimes miss some. I will treat you for pneumonia due to your slightly elevated white blood cell count and your symptoms. Take the antibiotics as directed. Use Zofran as needed for nausea. Return to emergency department for any new or worsening symptoms. Prescriptions: No Action gabapentin .Route ferrous sulfate [Iron (ferrous sulfate)] PO omeprazole magnesium [Prilosec OTC] PO albuterol sulfate 2.5 mg /3 mL (0.083 %) solution for nebulization 2.5 mg PRN Patient Comments: [NO ORIGINAL SIG] cetirizine 10 mg tablet 10 mg PO DAILY omeprazole 40 mg capsule,delayed release(DR/EC) 40 mg PO DAILY quetiapine 100 mg tablet 100 mg PO DAILY ondansetron 8 mg tablet,disintegrating PO clonidine HCl 0.2 mg tablet 0.2 mg PO QPM dextroamphetamine-amphetamine 20 mg tablet 1 tab PO DAILY gabapentin 300 mg capsule 300 mg PO Q12H hydroxyzine HCl 25 mg tablet 25 mg PO PRN ibuprofen 600 mg tablet 600 mg PO Q6H PRN albuterol sulfate [Ventolin HFA] 90 mcg/actuation HFA aerosol inhaler 1 - 2 puff inhalation Q6H PRN (Reason: wheezing) ferrous sulfate 325 mg (65 mg iron) tablet,delayed release (DR/EC) 325 mg PO QPM ondansetron 4 mg tablet,disintegrating 4 mg PO Q8H PRN etonogestrel-ethinyl estradiol [EluRyng] 0.12-0.015 mg/24 hr ring vaginal quetiapine 50 mg tablet 50 mg PO QPM cholecalciferol (vitamin D3) 1,250 mcg (50,000 unit) capsule 1,250 mcg PO TID ondansetron 4 mg tablet,disintegrating 4 mg PO Q8H PRN (Reason: nausea and vomiting) 4 Days Qty: 10 0RF Follow Up/Referrals: Cuong Mayes MD [Primary Care Provider] - Stand Alone [facility]: [facility] Info Instructions
[2023-09-02] MEDS: diphenhydrAMINE 50 MG/ML inj 25 MG IVP (10:37)
[2023-09-02] MEDS: METOCLOPRAMIDE HCL 5 MG/ML INJ 10 MG IVP (10:37)
[2023-09-02] MEDS: LACTATED RINGERS 1000 ML 1,000 ML IV (10:37)
[2023-09-02 10:49] LABS: Basophils Percent Auto 0.5 % (0.0-3.0); Eosinophils Percent Auto 4.7 % (0.0-7.0); Hematocrit 37.8 % (33.0-51.0); Immature Granulocytes Pct Auto 0.6 %; Lymphocytes Percent Auto 27.6 % (20-44); Mean Corpuscular HGB Conc 34 gm/dL (32-36); Mean Corpuscular Hemoglobin 29 pg (26-34); Mean Corpuscular Volume 84 fL (80-100); Monocytes Percent Auto 5.3 % (0.0-11.0); Neutrophils Percent Auto 61.3 % (42.0-72.0); Platelet Count* 273 K/uL (140-440); RDW Coefficient of Variation % 12.7 % (11.5-15.5); Red Blood Count 4.49 m/uL (4.00-5.20); White Blood Count* 12.74 K/uL (4.50-11.00)
[2023-09-02 10:53] LABS: Slide Review Reflex No
[2023-09-02 11:12] LABS: Chloride* 105 mmol/L (96-114); Potassium* 4.3 mmol/L (3.6-5.1); Sodium* 136 mmol/L (135-149)
[2023-09-02 11:15] LABS: Anion Gap 7 mEq/L (7-15); Blood Urea Nitrogen* 7 mg/dL (5-24); Carbon Dioxide* 24 mmol/L (20-32); Creatinine* 0.6 mg/dL (0.5-1.5); Est. Creatinine Clearance* 95.79; Estimated Glomerular Filt Rate 121 ml/min
[2023-09-02 11:16] LABS: Calcium* 9.2 mg/dL (8.4-10.6); Glucose* 107 mg/dL (60-115)
[2023-09-02 11:22] LABS: PCR FLU A Negative PCR FLU A (Negative); PCR FLU B Negative PCR FLU B (Negative); PCR RSV Negative PCR RSV (Negative); SARS PCR* Negative SARS-CoV-2 (Negative)
== END 2023-09-02 11:56 | disposition home or self-care (01) ==
PROVIDERS: Emergency Provider Student in an Organized Health Care Education/Training Program; PCP Family Medicine
DX: R51.9 Headache, unspecified (principal); J06.9 Acute upper respiratory infection, unspecified
CPT/HCPCS: 36415; 71046; 80048; 85025; 87631; 96374; 96375; 99283; 99284; J1200; J2765; J7120

== ENCOUNTER 2023-09-16 12:20 | Emergency (ER) | payer BC, SELFPAY ==
[2023-09-16 12:44] VITALS: BP 156/111; PULSE 88; RESP 18; TEMP 36.8; O2SAT 98; BMI 38.1
--- NOTE | 2023-09-16 14:34 | ED_ITS ---
HPI - General Adult General Time Seen by Provider: 14:34 Date Seen: 09/16/23 Chief complaint: Cough Stated complaint: congestion / cough Time Seen by Provider: 09/16/23 14:33 Source: patient and RN notes reviewed Mode of arrival: ambulatory Limitations: no limitations History of Present Illness HPI narrative: This 32-year-old female is coming in with upper respiratory symptoms. She started feeling ill yesterday again. She states since the end of April when she had COVID, she has been having recurrent episodes of illness. She was in the ER on September 01, had an acute respiratory infection. Her chest x-ray was negative but she had a mildly elevated white count. She does have underlying asthma but does not feel like her cough is really necessarily in asthma response. Cough is nonproductive. She is blowing her nose a lot, has a lot of sinus drainage. She feels achy. No significant sore throat. She has had some headache. She states her sinuses feel like they are burning. Related Data Home Medications Medication Instructions Recorded Confirmed ferrous sulfate PO 05/24/23 gabapentin .Route 05/24/23 omeprazole magnesium PO 05/24/23 albuterol sulfate 2.5 mg/3 mL 2.5 mg PRN 06/04/23 (0.083 %) solution for nebulization albuterol sulfate 90 mcg/actuation 1 - 2 puff inhalation Q6H PRN 06/04/23 09/02/23 aerosol inhaler (Ventolin HFA) wheezing cetirizine 10 mg tablet 10 mg PO DAILY 06/04/23 09/02/23 cholecalciferol (vitamin D3) 1,250 1,250 mcg PO TID 06/04/23 09/02/23 mcg (50,000 unit) capsule clonidine HCl 0.2 mg tablet 0.2 mg PO QPM 06/04/23 09/02/23 dextroamphetamine-amphetamine 20 1 tab PO DAILY 06/04/23 09/02/23 mg tablet etonogestrel 0.12 mg-ethinyl vag ring vaginal 06/04/23 estradiol 0.015 mg/24 hr vaginal ring (EluRyng) ferrous sulfate 325 mg (65 mg 325 mg PO QPM 06/04/23 09/02/23 iron) tablet,delayed release gabapentin 300 mg capsule 300 mg PO Q12H 06/04/23 09/02/23 hydroxyzine HCl 25 mg tablet 25 mg PO PRN 06/04/23 ibuprofen 600 mg tablet 600 mg PO Q6H PRN 06/04/23 09/02/23 omeprazole 40 mg capsule,delayed 40 mg PO DAILY 06/04/23 09/02/23 release ondansetron 4 mg disintegrating 4 mg PO Q8H PRN 06/04/23 06/04/23 tablet ondansetron 8 mg disintegrating mg PO 06/04/23 tablet quetiapine 100 mg tablet 100 mg PO DAILY 06/04/23 09/02/23 quetiapine 50 mg tablet 50 mg PO QPM 06/04/23 06/04/23 Previous Rx's Medication Instructions Recorded ondansetron 4 mg disintegrating 4 mg PO Q8H PRN nausea and 06/05/23 tablet vomiting 4 days #10 tabs azithromycin 250 mg tablet See Rx Instructions PO .COMPLEX #6 09/16/23 tabs benzonatate 200 mg capsule 200 mg PO BID-TID PRN cough #20 09/16/23 caps cefdinir 300 mg capsule 300 mg PO BID #20 caps 09/16/23 Allergies Allergy/AdvReac Type Severity Reaction Status Date / Time ciprofloxacin Allergy Severe Anaphylaxis Verified 09/02/23 10:06 hydrocodone Allergy Intermediate Unknown Verified 09/02/23 10:06 Review of Systems Status of ROS: Reports: 6 or more systems reviewed and unremarkable except as noted in History and below [facility] Social History Smoking Status: Heavy tobacco smoker What tobacco products do you use: cigarettes Smoking packs per day: 0.5 Smoking cigarettes per day: 10.0 Years smoked: 18 Smoking pack-years: 9.00 Do you use any of these nicotine containing products: None Second hand tobacco smoke exposure: Yes How often do you have a drink containing alcohol: never AUDIT-C Alcohol total score: 0 Non-prescribed substance use: denies use service: No Exam Const: Vital Signs, click to edit/add: Vital Signs - 24 hr 09/16/23 12:44 09/16/23 14:55 09/16/23 15:20 Temperature 98.3 F 98.4 F Pulse Rate [Right Pulse Oximeter] 88 Respiratory Rate 18 Blood Pressure [Ri ght Upper Arm] 156/111 H Pulse Oximetry 98 98 Oxygen Delivery Me thod Room Air This 32-year-old female is lying on the bed crawled up on her side. She is alert, interactive, no apparent distress. Pupils equal round reactive, sclera clear, symmetrical facial function. Oropharynx are mucosa, no exudates erythema, anterior nares look normal. She does have some redness of the skin around her nose where she has obviously irritated from blowing her nose. No evidence of infection. TMs canals are normal. Neck is supple, no adenopathy. Lungs are clear, good air entry, no wheezing or crackles, no tachypnea, no accessory muscle use. CV regular rate and rhythm, no murmur. Documenting provider has reviewed patient's vital signs: yes Course Course ED Course: This sounds as if the patient has a recurrent new upper respiratory issue. Will consider COVID, influenza, RSV. Will get a chest x-ray and consider community- acquired pneumonia. It could be other viral entities. Does not sound like her asthma is flaring at this time. She will be monitored here while we get a chest x-ray, labs and do the triple viral swab. Reevaluation(s) Time of Reevaluation #1: 16:34 Reevaluation #1: Patient requesting ibuprofen, dose of 600 mg oral ordered. Time of Reevaluation #2: 17:46 Reevaluation #2: Patient in I reviewed that her chest x-ray is read by the radiologist as probable bronchopneumonia. Her labs are reassuring. She was given a Z-Taz last time. It is possible that she has something new or worsening. We will redo the Z-Taz for community-acquired pneumonia atypicals but also add in cefdinir. She is also requesting the little gel pills that help the cough. Will send some [employer] Perles in for her. Vital Signs Vital signs: Initial Vital Signs Temperature 98.3 F 09/16/23 12:44 Temperature Source Temporal Artery Scan 09/16/23 12:44 Pulse Rate 88 09/16/23 12:44 Respiratory Rate 18 09/16/23 12:44 Blood Pressure 156/111 H 09/16/23 12:44 Blood Pressure Mean 126 H 09/16/23 12:44 Blood Pressure Position Sitting 09/16/23 12:44 Pulse Oximetry 98 09/16/23 12:44 Oxygen Delivery Method Room Air 09/16/23 12:44 Vital Signs Temperature 98.3 F 09/16/23 12:44 Pulse Rate 88 09/16/23 12:44 Respiratory Rate 18 09/16/23 12:44 Blood Pressure 156/111 H 09/16/23 12:44 Pulse Oximetry 98 09/16/23 12:44 Oxygen Delivery Method Room Air 09/16/23 12:44 Temperature 98.4 F 09/16/23 15:20 Pulse Rate 88 09/16/23 12:44 Respiratory Rate 18 09/16/23 12:44 Blood Pressure 156/111 H 09/16/23 12:44 Pulse Oximetry 98 09/16/23 14:55 Oxygen Delivery Method Room Air 09/16/23 12:44 Medications Administered Medications: Discontinued Medications Generic Name Dose Route Start Last Admin Trade Name Freq PRN Reason Stop Dose Admin Ibuprofen 600 mg 09/16/23 16:34 09/16/23 17:05 Ibuprofen 200 Mg Tablet PO 09/16/23 16:35 600 mg ONCE ONE Administration Medical Decision Making Lab Data Lab results reviewed: Yes I reviewed the patient's lab results Lab results narrative: Did review chest x-ray, believe that there are changes right inferior side, question infiltrate. Did compare to most chest images, do see changes in comparison to that. Await radiology reading. Labs: Lab Results 09/16/23 09/16/23 Range/Units 15:12 15:28 WBC 9.47 (4.50-11.00) K/uL RBC 4.50 (4.00-5.20) m/uL Hgb 13.3 (12.0-16.0) gm/dL Hct 38.3 (33.0-51.0) % MCV 85 (80-100) fL MCH 30 (26-34) pg MCHC 35 (32-36) gm/dL RDW Coeff of [place]ingo 13.2 (11.5-15.5) % Plt Count 280 (140-440) K/uL Neut % (Auto) 65.3 (42.0-72.0) % Lymph % (Auto) 18.6 L (20-44) % [place] % (Auto) 9.2 (0.0-11.0) % Eos % (Auto) 4.9 (0.0-7.0) % Baso % (Auto) 0.6 (0.0-3.0) % Neut # (Auto) 6.19 (1.7-7.0) K/uL Lymph # (Auto) 1.80 (0.90-2.90) K/uL [place] # (Auto) 0.90 (0.00-0.90) K/UL Eos # (Auto) 0.46 (0.00-0.50) K/uL Baso # (Auto) 0.06 (0.00-0.30) K/uL Abs Immat Gran (auto) 0.13 (0.00-0.30) K/uL Imm/Tot Granulo (auto) 1.4 % C-Reactive Protein 0.9 (0.5-1.0) mg/dL Procalcitonin 0.09 (<0.50) ng/mL SARS-CoV-2 (PCR) Negative SARS-CoV-2 (Negative) Influenza Type A (PCR) Negative PCR FLU A (Negative) Influenza Type B (PCR) Negative PCR FLU B (Negative) RSV (PCR) Negative PCR RSV (Negative) Patient: REYNOLD Conner DEANAAMELIA Facility:?[facility] Patient ID:?[id number] Site Patient ID:?[id number]. Site :?1990 Study:?XRay-Chest Portable one view-09/16/2023 3:15:26 PM Ordering Physician:RACHEL HUSAIN Final Report: Indication: Cough Technique: Chest 1 view Comparison: Chest x-ray 05/24/2023 Findings/Impression: Cardiovascular and mediastinum: Heart size and vasculature are normal in caliber and appearance. Lungs and pleural space: No pleural effusion or pneumothorax. Bronchial wall thickening with some hazy opacities at the right infrahilar region suspicious for early bronchopneumonia. Bones and soft tissues: No acute findings. Dictated by Suleman Phipps MD @ 09/16/2023 3:23:36 PM (Electronic Signature) Imaging Data Chest x-ray: Attestation: I have reviewed the pertinent imaging results. Radiologist's impression: Patient: REYNOLD JOJAGRUTIAMELIA Facility:?[facility] Patient ID:?[id number] Site Patient ID:?[id number]. Site :?1990 Study:?XRay-Chest Portable one view-09/16/2023 3:15:26 PM Ordering Physician:RACHEL HUSAIN Final Report: Indication: Cough Technique: Chest 1 view Comparison: Chest x-ray 05/24/2023 Findings/Impression: Cardiovascular and mediastinum: Heart size and vasculature are normal in caliber and appearance. Lungs and pleural space: No pleural effusion or pneumothorax. Bronchial wall thickening with some hazy opacities at the right infrahilar region suspicious for early bronchopneumonia. Bones and soft tissues: No acute findings. Dictated by Suleman Phipps MD @ 09/16/2023 3:23:36 PM (Electronic Signature) Discharge Plan Discharge Clinical Impression: Acute bronchopneumonia Patient Disposition: Home, Self-Care Condition: Stable Instructions: Community Acquired Pneumonia (ED) Additional Instructions: Start both antibiotics and take as prescribed, do need to complete them. Can use the Tessalon Perles per prescription for cough. Can use her albuterol as needed if you think this is flaring her asthma at all. If you are not improving over the next week, or worsening or have concerns at any point, please seek re- evaluation. Activity Level: Activity as Tolerated Prescriptions: New cefdinir 300 mg capsule 300 mg PO BID Qty: 20 0RF azithromycin 250 mg tablet See Rx Instructions .ROUTE .COMPLEX Qty: 6 0RF Rx Instructions: For 250 mg dose pack: take 500 mg today (day 1), then 250 mg for 4 days (days 2-5) benzonatate 200 mg capsule 200 mg PO BID-TID PRN (Reason: cough) Qty: 20 0RF No Action gabapentin .Route ferrous sulfate [Iron (ferrous sulfate)] PO omeprazole magnesium [Prilosec OTC] PO albuterol sulfate 2.5 mg /3 mL (0.083 %) solution for nebulization 2.5 mg PRN Patient Comments: [NO ORIGINAL SIG] cetirizine 10 mg tablet 10 mg PO DAILY omeprazole 40 mg capsule,delayed release(DR/EC) 40 mg PO DAILY quetiapine 100 mg tablet 100 mg PO DAILY ondansetron 8 mg tablet,disintegrating PO clonidine HCl 0.2 mg tablet 0.2 mg PO QPM dextroamphetamine-amphetamine 20 mg tablet 1 tab PO DAILY gabapentin 300 mg capsule 300 mg PO Q12H hydroxyzine HCl 25 mg tablet 25 mg PO PRN ibuprofen 600 mg tablet 600 mg PO Q6H PRN albuterol sulfate [Ventolin HFA] 90 mcg/actuation HFA aerosol inhaler 1 - 2 puff inhalation Q6H PRN (Reason: wheezing) ferrous sulfate 325 mg (65 mg iron) tablet,delayed release (DR/EC) 325 mg PO QPM ondansetron 4 mg tablet,disintegrating 4 mg PO Q8H PRN etonogestrel-ethinyl estradiol [EluRyng] 0.12-0.015 mg/24 hr ring vaginal quetiapine 50 mg tablet 50 mg PO QPM cholecalciferol (vitamin D3) 1,250 mcg (50,000 unit) capsule 1,250 mcg PO TID ondansetron 4 mg tablet,disintegrating 4 mg PO Q8H PRN (Reason: nausea and vomiting) 4 Days Qty: 10 0RF Follow Up/Referrals: Cuong Mayes MD [Primary Care Provider] - Stand Alone Forms: [employer] Info Instructions
[2023-09-16 14:55] VITALS: O2SAT 98
--- NOTE | 2023-09-16 14:55 | XR_ITS ---
Patient: REYNOLD CULP Facility:?[facility] Patient ID:?[id number] Site Patient ID:?[id number]. Site :?1990 Study:?XRay-Chest Portable one view-09/16/2023 3:15:26 PM Ordering Physician:RACHEL HUSAIN Final Report: Indication: Cough Technique: Chest 1 view Comparison: Chest x-ray 05/24/2023 Findings/Impression: Cardiovascular and mediastinum: Heart size and vasculature are normal in caliber and appearance. Lungs and pleural space: No pleural effusion or pneumothorax. Bronchial wall thickening with some hazy opacities at the right infrahilar region suspicious for early bronchopneumonia. Bones and soft tissues: No acute findings. Dictated by Suleman Phipps MD @ 09/16/2023 3:23:36 PM Signed by:?Suleman Phipps MD @09/16/2023 3:23:36 PM (Electronic Signature)
[2023-09-16 15:20] VITALS: TEMP 36.9
[2023-09-16 15:55] LABS: PCR FLU A Negative PCR FLU A (Negative); PCR FLU B Negative PCR FLU B (Negative); PCR RSV Negative PCR RSV (Negative); SARS PCR* Negative SARS-CoV-2 (Negative)
[2023-09-16 15:56] LABS: Basophils Absolute Auto 0.06 K/uL (0.00-0.30); Basophils Percent Auto 0.6 % (0.0-3.0); Eosinophils Absolute Auto 0.46 K/uL (0.00-0.50); Eosinophils Percent Auto 4.9 % (0.0-7.0); Hematocrit 38.3 % (33.0-51.0); Hemoglobin* 13.3 gm/dL (12.0-16.0); Immature Granulocytes Abs Auto 0.13 K/uL (0.00-0.30); Immature Granulocytes Pct Auto 1.4 %; Lymphocytes Percent Auto 18.6 % (20-44); Mean Corpuscular HGB Conc 35 gm/dL (32-36); Mean Corpuscular Hemoglobin 30 pg (26-34); Mean Corpuscular Volume 85 fL (80-100); Monocytes Percent Auto 9.2 % (0.0-11.0); Neutrophils Absolute Auto 6.19 K/uL (1.7-7.0); Neutrophils Percent Auto 65.3 % (42.0-72.0); Platelet Count* 280 K/uL (140-440); RDW Coefficient of Variation % 13.2 % (11.5-15.5); White Blood Count* 9.47 K/uL (4.50-11.00)
[2023-09-16 15:59] LABS: Slide Review Reflex No
[2023-09-16 16:41] LABS: C Reactive Protein* 0.9 mg/dL (0.5-1.0)
[2023-09-16 16:56] LABS: Procalcitonin* 0.09 ng/mL (<0.50)
[2023-09-16] MEDS: IBUPROFEN 200 MG TABLET 600 MG PO (17:05)
== END 2023-09-16 17:59 | disposition home or self-care (01) ==
PROVIDERS: Emergency Provider Family Medicine; PCP Family Medicine
DX: J18.0 Bronchopneumonia, unspecified organism (principal)
CPT/HCPCS: 36415; 71045; 84145; 85025; 86140; 87631; 94761; 99284; A9270

== ENCOUNTER 2024-08-19 13:03 | Inpatient (IN) | payer BC, SELFPAY ==
[2024-08-19] VITALS (21 sets, daily range): BP systolic 98–164; BP diastolic 53–124; PULSE 97–122; RESP 16–22; TEMP 36.1–38.1; O2SAT 94–98; BMI 39.1; BMI 40.3
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
--- OUTSIDE RECORDS SUMMARY | 2024-08-19 13:05 | XMS_ITS | Encounter Summary ---
Author Organization [facility] Address [address], [place] [address] Care Team Providers Care Field Engineer Name Role Phone Lorrie Otto APRN, CNM Primary Care Provider Encounter Details Date Type Department Care Team (Late st Contact Info) Description 09/12/2017 Scanned History External to [facility] RECORD Social History Tobacco Use Types Packs/Day Years Used Date Smoking Tobacco: Every Day Cigarettes 0.2 5 Alcohol Use Standard Drinks/Week Comments No 0 (1 standard drink = 0.6 oz pur e alcohol) Comments Unknown Sex and Gender Information Value Date Recorded Sex Assigned at Not on file Legal Sex Female 3:54 AM CDT Gender Identity Not on file Sexual Orientation Not on file documented as of this encounter Plan of Treatment Not on file documented as of this encounter Visit Diagnoses Not on filedocumented in this encounter Care Teams Field Engineer Relationship Specialty Start Date End Date Lorrie Otto APRN, CNM [address] [place] [address] PCP - General Certified Nurse Light Industrial Supervisor 07/13/21 documented as of this encounter
--- OUTSIDE RECORDS SUMMARY | 2024-08-19 13:05 | XMS_ITS | Encounter Summary ---
Author Organization [facility] Address [address], [place] [address] Care Team Providers Care Legislative Assistant Name Role Phone OttoLorrie cm ALBERT HAAS Primary Care Provider Reason for Visit * Reason Comments BURN Presents with burn t o right hand. Wax spilled on patient's hand at salon. Right hand is skin peeling, blisters, swelling and redness present. Had 800 mg of ibuprofen NUT FORMER. Encounter Details Date Type Department Care Team (Late st Contact Info) Description 07/25/2024 2:20 PM SUPERVISOR SANDING Office Visit [facility] [address] [address] Aleena Aponte MD [address] [place] [id number] Partial thickness burn of back of right [...] on file documented as of this encounter Last Filed Vital Signs Vital Sign Reading Time Taken Comments Blood Pressure 150/105 07/25/2024 1:39 PM SUPERVISOR SANDING Pain, will recheck BP Pulse 97 07/25/2024 1:39 PM SUPERVISOR SANDING Temperature 36.9 C (98.4 F) 07/25/2024 1:39 PM SUPERVISOR SANDING Respiratory Rate 20 07/25/2024 1:39 PM SUPERVISOR SANDING Oxygen Saturation 97% 07/25/2024 1:3 9 PM SUPERVISOR SANDING Inhaled Oxygen Concentration - - Weight - - Height - - Body Mass Index - - documented in this encounter Progress Notes * Aleena Aponte MD - 07/25/2024 2:20 PM CST Chief Complaint Patient presents with BURN Presents with burn to right hand. Wax spilled on patient's hand at salon. Right hand is skin peeling, blisters, swelling and redness present. Had 800 mg of ibuprofen NUT FORMER. SUBJECTIVE: Miriam Murphy is a 33 y.o.female who presents to Urgent Care for evaluation of burn to theright hand from hot wax that she accidentally poured on it. She immediately rinsed it and applied bacitracin. Took Ibuprofen at home. She is right hand dominant. It is very painful and it was very difficult to drive here. Relevant ROS was performed and is as in above HPI. OBJECTIVE: Vital Signs: BP (!) 150/105 Comment: Pain, will recheck BP Pulse 97 Temp 98.4 ??F (36.9 ??C) (Tympanic) Resp 20 LMP (LMP Unknown) SpO2 97% . Physical Exam Vitals and nursing note reviewed. Constitutional: General: She is in acute distress. Appearance: She is not toxic-appearing. Comments: Painful expression with ice pack over dorsal right hand HENT: Head: Normocephalic and atraumatic. Eyes: Conjunctiva/sclera: Conjunctivae normal. Skin: Comments: Burn to dorsal right hand and drip pattern from wax to ventral fingers. Second degree with ruptured blisters and dermal layer visible with surrounding erythema. Neurological: General: No focal deficit present. Mental Status: She is alert. No results found for any visits on 07/25/24. No results found. ASSESSMENT/PLAN: Miriam was seen today for burn. Diagnoses and all orders for this visit: Partial thickness burn of back of right hand, initial encounter Patient taken by EMS (service offered as patient hand injury resulted in difficulty and safety riskfor driving self) to [facility] which is closest burn center as hand injury requires prompt specialty management for risk for compromise of ADLs and work-related especially with this being her dominant hand. Patient aware of costs associated with EMS transfer per insurance. The plan which includes the instructions below was discussed during the visit. The patient/parent was engaged in a shared-decision making process, expressed understanding of, and reported amenabilityto the determined plan. The instructions below were explicitly reviewed with the patient/parent prior to discharge and any remaining questions they had were answered to further their understanding. There are no Patient Instructions on file for this visit. Aleena Aponte MD RVISOR SANDING documented in this encounter Nursing Notes * Ashley Desai - 07/25/2024 2:20 PM CST Miriam Murphy is a 33 y.o.female presents to the Urgent Care for BURN (Presents with burn to right hand. Wax spilled on patient's hand at salon. Right hand is skin peeling, blisters, swelling and redness present. Had 800 mg of ibuprofen NUT FORMER. ) . Burn to right hand 30 mins-1 hour ago, symptoms gradually worsening. Pain present Right hand . Previous episodes or similar occurrence No. Any home remedies tried Yes, ibuprofen 800 mg. Patient requests an excuse letter for work/school: No Ashley Desai 07/25/2024, 1:38 PM RVISOR SANDING documented in this encounter Plan of Treatment Not on file documented as of this encounter Visit Diagnoses Diagnosis Partial thickness burn of back of right hand, initial encounter- Primary documented in this encounter Care Teams Legislative Assistant Relationship Specialty Start Date End Date Lorrie Otto, WALDO, ALBERT [address] [place] [address] PCP - General Certified Nurse Bindery Helper 07/13/21 documented as of this encounter
--- OUTSIDE RECORDS SUMMARY | 2024-08-19 13:05 | XMS_ITS | Encounter Summary ---
Author Organization [facility] Address [address], [place] [address] Care Team Providers Care Milk Collector Name Role Phone OttoLorrie stewart Alex HAAS CNM Primary Care Provider Reason for Visit * Reason Comments EARACHE Patient here with bi lateral ear pain and some dizziness that comes and goes. Also C/O cough and congestion. Symptoms started Saturday. Encounter Details Date Type Department Care Team (Late st Contact Info) Description 08/10/2024 10:00 AM CDT Office Visit [facility] [address] [address] Ivet Carpio PA-C [address] [place] [phone] OME (otitis media with effusion), bilateral (Primary Dx); Viral illness; Wheezing Social History Tobacco Use Types Packs/Day Years [...] Sign Reading Time Taken Comments Blood Pressure 108/83 08/10/2024 10:03 AM CDT Pulse 106 08/10/2024 10:03 AM CDT Temperature 37 C (98.6 F) 08/10/2024 10:03 AM CDT Respiratory Rate 16 08/10/2024 10:03 AM CDT Oxygen Saturation 99% 08/10/2024 10:03 AM CDT Inhaled Oxygen Concentration - - Weight - - Height - - Body Mass Index - - documented in this encounter Patient Instructions * Patient Instructions* Ivet Carpio PA-C - 08/10/2024 10:00 AM CDT Take tylenol for pain. Keep ear clean and dry. No swimming or Q-tip use until symptoms have resolved. -Get plenty of rest and fluids -Tylenol as needed for headache, ear pain, muscle and joint pains, malaise, and sneezing) -Follow OTC manufacturers recommendations on the package for dosing -Saline nasal spray -Honey for cough -Cool mist humidifier -prop pillow up at night -Mucinex for chest congestion and sudafed for sinus congestion -Avoid NSAIDs with prednisone If your symptoms worsen or new symptoms develop please follow up with your primary care provider in3-4 days. If you develop shortness of breath, chest pain, unable to eat or drink please go to the emergency department immediately or call 911 * Attachments The following attachments cannot be sent through Care Everywhere. * Otitis Media ([place]) documented in this encounter Progress Notes * Ivet Carpio PA-C - 08/10/2024 10:00 AM CDT Miriam Murphy is a 33 y.o.female presents to the Urgent Care for EARACHE (Patient here with bilateral ear pain and some dizziness that comes and goes. Also C/O cough and congestion. Symptomsstarted Saturday.) What cold symptoms are you experiencing?Nose/Sinus/Ear Do you have a runny nose? YES Are you sneezing? YES Are you experiencing any nasal congestion? YES Are you experiencing any headaches?YES Do you have any facial or dental pain? No Do you have any ear pain? YES Do you have any eye itching or irritation? No Have you had a history of sinus infections? No How long have you had these symptoms? 2 day(s) Have you had a fever? YES How high was your fever? felt feverish but not measured Are there any treatments you have tried? No BP 108/83 (BP Location: Left Arm, BP Cuff Size: Regular) Pulse (!) 106 Temp 98.6 ??F (37 ??C) (Tympanic) Resp 16 LMP 08/08/2023 (Exact Date) SpO2 99% Stella Loyola LPN 08/10/2024, 10:06 AM SUBJECTIVE: Miriam Murphy is a 33 y.o. old female with a history of long COVID, tobacco use disorder, anxiety presents with intermittent bilateral ear pain x2 days. Associated with mild dizziness, rhinorrhea, sneezing, nasal congestion, headaches, mild wheezing, and subjective fever. Denies: Patient pain, eye irritation, history of sinus infections Treatments: None All other ROS reviewed are negative Current Outpatient Medications Medication Sig Dispense Refill amphetamine-dextroamphetamine (ADDERALL) 20 MG tablet Take 1 Tablet (20 mg) by mouth daily. ARIPiprazole (ABILIFY) 2 MG tablet Take 1 Tablet (2 mg) by mouth. bacitracin 500 UNIT/GM ointment Apply topically once daily to the affected open areas on right hand. 28 g 0 cetirizine (ZYRTEC) 10 MG tablet Take by mouth. Cholecalciferol (VITAMIN D3) 25 MCG (1000 UT) ta Take by mouth. cloNIDine (CATAPRES) 0.2 MG tablet Take 1 Tablet (0.2 mg) by mouth. ferrous sulfate (AKA IRON SULFATE) 325 (65 Fe) MG enteric coated tablet Take 1 Tablet (325 mg) by mouth daily at bedtime. gabapentin (NEURONTIN) 300 MG capsule Take by mouth. ibuprofen (MOTRIN) 600 MG tablet Take 1 Tablet (600 mg) by mouth every 6 hours as needed for Pain. 30 Tablet 0 lisinopril (ZESTRIL) 10 MG tablet Take 1 Tablet (10 mg) by mouth daily. nicotine (NICODERM CQ) 14 MG/24HR patch 1 Patch daily. omeprazole (PRILOSEC) 40 MG capsule Take 1 Capsule (40 mg) by mouth. ondansetron (ZOFRAN-ODT) 4 MG disintegrating tablet Take 1 Tablet (4 mg) by mouth every 8 hours as needed for Nausea for up to 14 days. 10 Tablet 0 PLAN B 0.75 MG OR TABS take as package directs 2 tablets 0 QUEtiapine (SEROQUEL) 100 MG tablet Take 1 Tablet (100 mg) by mouth daily at bedtime. venlafaxine (AKA EFFEXOR) 37.5 MG tablet Take 1 Tablet (37.5 mg) by mouth three times a day. (Patient not taking: Reported on 08/10/2024) VENTOLIN HFA 108 (90 Base) MCG/ACT inhaler Inhale 2 Puffs every 4 hours as needed. No current facility-administered medications for this visit. Ciprofloxacin and Hydrocodone OBJECTIVE: BP 108/83 (BP Location: Left Arm, BP Cuff Size: Regular) Pulse (!) 106 Temp 98.6 ??F (37 ??C) (Tympanic) Resp 16 LMP 08/08/2023 (Exact Date) SpO2 99% General Appearance: Alert, cooperative, no distress, appears stated age, nontoxic appearing Head: Normocephalic, without obvious abnormality, atraumatic Eyes: conjunctiva/corneas clear both eyes Ears: Bilateral TMs mild erythema, mild bulging, no perforation, ear canal and external ear canals with no masses, no drainage, no foreign bodies, no tragal or antihelix tenderness Nose: Nares normal, septum midline, mucosa normal, no drainage or sinus tenderness Throat: Oropharynx mild erythema, no tonsillar hypertrophy, no exudates, no drooling, no trismus, uvula midline, lips and tongue normal; teeth and gums normal Lungs: Mild expiratory wheeze, otherwise all lung rodgers clear to auscultation bilaterally, respirations unlabored Heart: Regular rate and rhythm, S1 and S2 normal, no murmur, rub or gallop Lymph nodes: Cervical, pre/post auricular nodes normal ASSESSMENT: Encounter Diagnoses Name Primary? OME (otitis media with effusion), bilateral Yes Viral illness Wheezing PLAN: Miriam was seen today for earache. Diagnoses and all orders for this visit: OME (otitis media with effusion), bilateral - amoxicillin (AMOXIL) 500 MG capsule; Take 1 Capsule (500 mg) by mouth three times a day for 10 days. Viral illness Wheezing - predniSONE (DELTASONE) 20 MG tablet; Take 2 Tablets (40 mg) by mouth daily for 5 days. Discussed findings above with patient in clinic. Discussed treatment in detail as above. Instructedpatient to get plenty of rest and fluids. Tylenol for pain. [id number] medications as listed on the AVS. If symptoms should persist follow up with primary care provider in 1-2 weeks. Follow up sooner if symptoms worsen or new symptoms develop. Patient Instructions Take tylenol for pain. Keep ear clean and dry. No swimming or Q-tip use until symptoms have resolved. -Get plenty of rest and fluids -Tylenol as needed for headache, ear pain, muscle and joint pains, malaise, and sneezing) -Follow OTC manufacturers recommendations on the package for dosing -Saline nasal spray -Honey for cough -Cool mist humidifier -prop pillow up at night -Mucinex for chest congestion and sudafed for sinus congestion -Avoid NSAIDs with prednisone If your symptoms worsen or new symptoms develop please follow up with your primary care provider in3-4 days. If you develop shortness of breath, chest pain, unable to eat or drink please go to the emergency department immediately or call 911 Follow-up/ED precautions: Patient will follow up with their primary care provider if symptoms persist, worsen or new symptomsdevelop. ED precautions given: if patient develops shortness of breath or difficulty breathing, chest pain, unable to eat or drink go to the emergency department immediately. Discharge: Patient understands and agrees with the plan and treatment. Patient will call if they have any questions or concerns. Went over printed AVS with detailed instructions given to the patient. Patient was discharged in stable condition and ambulated out of the urgent care. Ivet Carpio PA-C 08/10/2024, 10:25 AM This note was created using speech recognition software some parts of this note may contain some unintended word substitutions and grammar errors. documented in this encounter Nursing Notes * Stella Loyola LPN - 08/10/2024 10:00 AM CDT Miriam Murphy is a 33 y.o.female presents to the Urgent Care for EARACHE (Patient here with bilateral ear pain and some dizziness that comes and goes. Also C/O cough and congestion. Symptomsstarted Saturday.) What cold symptoms are you experiencing?Nose/Sinus/Ear Do you have a runny nose? YES Are you sneezing? YES Are you experiencing any nasal congestion? YES Are you experiencing any headaches?YES Do you have any facial or dental pain? No Do you have any ear pain? YES Do you have any eye itching or irritation? No Have you had a history of sinus infections? No How long have you had these symptoms? 2 day(s) Have you had a fever? YES How high was your fever? felt feverish but not measured Are there any treatments you have tried? No BP 108/83 (BP Location: Left Arm, BP Cuff Size: Regular) Pulse (!) 106 Temp 98.6 ??F (37 ??C) (Tympanic) Resp 16 LMP 08/08/2023 (Exact Date) SpO2 99% Stella Loyola LPN 08/10/2024, 10:06 AM documented in this encounter Plan of Treatment Not on file documented as of this encounter Visit Diagnoses Diagnosis OME (otitis media with effusion), bilateral- Primary Viral illness Unspecified viral infection, in conditions classified elsewhere and of unspecified site Wheezing documented in this encounter Care Teams Milk Collector Relationship Specialty Start Date End Date Lorrie Otto, WALDO, GYPSYM [address] [place] [address] PCP - General Certified Nurse Beck Operator 07/13/21 documented as of this encounter
--- OUTSIDE RECORDS SUMMARY | 2024-08-19 13:05 | XMS_ITS | Encounter Summary ---
Author Organization [facility] Address [address] [address] Care Team Providers Care Arc Cutter Plasma Arc Name Role Phone OttoLorrie cm ALBERT HAAS Primary Care Provider Reason for Visit * Reason Comments DIARRHEA Experiencing diarrhe a, nausea and vomiting x2 days. Unable to keep food and fluids down. Also c/o dizziness, lightheadedness and hot flashes. Tried pepto bismo and OTC anti-diarrheal with no relief. Encounter Details Date Type Department Care Team (Late st Contact Info) Description 07/29/2024 3:00 PM ED CASE MANAGER Office Visit [facility] [address] [phone] Ivet Carpio PA-C [address] [place] [id number] Nausea and vomiting, unspecified vomiting type (Primary Dx); Diarrhea, unspecified type; Gastroenteritis Social History Tobacco Use Types Packs/Day Years [...] Sign Reading Time Taken Comments Blood Pressure 132/94 07/29/2024 3:00 PM ED CASE MANAGER Pulse 80 07/29/2024 3:00 PM ED CASE MANAGER Temperature 36.3 C (97.3 F) 07/29/2024 3:00 PM ED CASE MANAGER Respiratory Rate 18 07/29/2024 3:00 PM ED CASE MANAGER Oxygen Saturation 98% 07/29/2024 3:00 PM ED CASE MANAGER Inhaled Oxygen Concentration - - Weight - - Height - - Body Mass Index - - documented in this encounter Patient Instructions * Patient Instructions* Ivet Carpio PA-C - 07/29/2024 3:00 PM ED CASE MANAGER Diarrhea diarrhea can be a frustrating experience for you. The basic principle for management of this disease is to REPLACE THE FLUID LOST TO THE DIARRHEA. You diarrhea may last up to 10 days. Don't be alarmed if the stool becomes green or even very light-colored. Diarrheal stool is very acidic and may burn skin on contact. Be sure to protect the skin as much as possible with frequent changes and application of protective ointments such as Desitin, A&D or other generic zinc-based ointments. After washing the involved area, air-dry and leave exposed to air as much as possible to accelerate healing. There are many home-remedies for diarrhea, and most of them 'can't hurt, but won't help.' Research suggests that a NORMAL diet will shorten the duration of diarrhea. Remember: diarrhea may increase in volume if you provide more food to be digested. If you are vomiting, provide clear liquids on the first day of illness. Pedialyte or Ricelyte, watered-down juices (EXCEPT apple juice) are useful supplements to the diet. Try to avoid giving large amounts of tap-water, since this contains no nutrition and cannot replace the electrolytes and other s ubstances lost in the stool. Then advance to bland foods over the next day or two: the traditional BRAT diet (Bananas, Rice, Applesauce, [place] or Tea) is well-tolerated and usually produces little increase in the amount of diarrhea. Try to get back to a normal diet as soon as possible--including milk products! Please call us if you develop bloody or jet-black stool, repeated vomiting, becomes lethargic, has sunken eyes or does not urinate at least 3 times per day. Infectious diarrhea is highly contagious, but easily prevented: with good hand- washing technique, there should be no spread of this disease to others. If you need help during office hours, please call our Consulting Nurse Line. After hours, call the CareLine at . If your symptoms worsen or new symptoms develop please follow up with your primary care provider in3-4 days. If you develop severe abdominal pain, unable to hydrate orally, unable to urinate, shortness of breath, chest pain, unable to eat or drink please go to the emergency department immediately or call 911 CASE MANAGER * Attachments The following attachments cannot be sent through Care Everywhere. * Gastroenteritis (Syriac) documented in this encounter Progress Notes * Ivet Carpio PA-C - 07/29/2024 3:00 PM CST Miriam Murphy is a 33 y.o.female presents to the Urgent Care for DIARRHEA (Experiencing diarrhea, nausea and vomiting x2 days. Unable to keep food and fluids down. Also c/o dizziness, lightheadedness and hot flashes. Tried pepto bismo and OTC anti-diarrheal with no relief. ) How long have you had diarrhea? 2 day(s) How many bowel movements have you had in the last 24 hours? Constant and experienced incontinence Have you had a fever? [place] feverish, Have you had any nausea or vomiting? YES Nausea and Vomiting Have you had any abdominal pain? YES Where in your abdomen is the pain located? upper On a scale of 1 to 10, how severe is your pain? 5 Have you had bloody stools? No, looks black per patient Since your symptoms began, have you lost weight? No Have you used any antibiotics in the last 3 months? No Have you or anyone in your household traveled outside the [place] in the last 30 days?: No Have any of your family members or a close contact been ill? YES Have you tried any treatments? YES OTC Antidirrhoeal: Did not help Patient requests an excuse letter for work/school: No Ashley Desai 07/29/2024, 3:00 PM SUBJECTIVE: Miriam Murphy is a 33 y.o. old female presents with nausea and vomiting x 2 days. Associated with dizziness, hot flashes, and diarrhea. Pt states her daughter has the same symptoms at home. Denies: weight loss, recent travel outside of the [place], recent antibiotics Treatments: OTC antidiarrheals and pepto bismal with no relief Current Outpatient Medications Medication Sig Dispense Refill amphetamine-dextroamphetamine (ADDERALL) 20 MG tablet Take 1 Tablet (20 mg) by mouth daily. ARIPiprazole (ABILIFY) 2 MG tablet Take 1 Tablet (2 mg) by mouth. cetirizine (ZYRTEC) 10 MG tablet Take by [...] 1 Tablet (10 mg) by mouth daily. methylPREDNISolone (MEDROL 21 TABLET DOSEPACK) 4 MG tablet Follow package directions 21 Tablet 0 nicotine (NICODERM CQ) 14 MG/24HR patch 1 Patch daily. omeprazole (PRILOSEC) 40 MG capsule Take 1 Capsule (40 mg) by mouth. oxyCODONE (ROXICODONE) 5 MG immediate release tablet Take 1 Tablet (5 mg) by mouth every 6 hours asneeded for Pain. 8 Tablet 0 PLAN B 0.75 MG OR TABS take as package directs 2 tablets 0 QUEtiapine (SEROQUEL) 100 MG tablet Take 1 Tablet (100 mg) by mouth daily at bedtime. venlafaxine (AKA EFFEXOR) 37.5 MG tablet Take 1 Tablet (37.5 mg) by mouth three times a day. VENTOLIN HFA 108 (90 Base) MCG/ACT inhaler Inhale 2 Puffs every 4 hours as needed. No current facility-administered medications for this visit. Ciprofloxacin and Hydrocodone OBJECTIVE: BP (!) 132/94 Pulse 80 Temp 97.3 ??F (36.3 ??C) (Oral) Resp 18 LMP 07/08/2023 (Approximate) SpO2 98% General Appearance: Alert, cooperative, no distress, appears stated age, non- toxic appearing Head: Normocephalic, without obvious abnormality, atraumatic Throat: Lips, mucosa, and tongue normal; teeth and gums normal Lungs: Clear to auscultation bilaterally, respirations unlabored Heart: Regular rate and rhythm, S1 and S2 normal, no murmur, rub or gallop Abdomen: Soft, mild ttp throughout all quadrants, hyperactive bowel sounds throughout and active all four quadrants, no masses, no organomegaly, no ecchymosis Skin: Skin color, texture, turgor normal, no rashes or lesions Lymph nodes: Cervical, pre/post auricular nodes normal ASSESSMENT: Encounter Diagnoses Name Primary? Nausea and vomiting, unspecified vomiting type Yes Diarrhea, unspecified type Gastroenteritis PLAN: Miriam was seen today for diarrhea. Diagnoses and all orders for this visit: Nausea and vomiting, unspecified vomiting type - ondansetron (ZOFRAN-ODT) 4 MG disintegrating tablet; Take 1 Tablet (4 mg) by mouth every 8 hours as needed for Nausea for up to 14 days. Diarrhea, unspecified type Gastroenteritis Discussed w/ pt symptoms are likely viral gastroenteritis. Recommend pt push fluids w/ electrolytes, BRAT diet, avoid dairy products, zofran PRN. Given pt is taking pepto this is likely the reason why pt is experiencing black stools. If pt is unable to tolerate oral hydration pt should go to the ED. Pt is currently able to rehydrate orally and stable in clinic. If symptoms should persist f/u withpcp or rtuc in 1 week. F/u sooner if symptoms worsen or new symptoms develop. Patient Instructions Diarrhea diarrhea can be a frustrating experience for you. The basic principle for management of this disease is to REPLACE THE FLUID LOST TO THE DIARRHEA. You diarrhea may last up to 10 days. Don't be alarmed if the stool becomes green or even very light-colored. Diarrheal stool is very acidic and may burn skin on contact. Be sure to protect the skin as much as possible with frequent changes and application of protective ointments such as Desitin, A&D or other generic zinc-based ointments. After washing the involved area, air-dry and leave exposed to air as much as possible to accelerate healing. There are many home-remedies for diarrhea, and most of them 'can't hurt, but won't help.' Research suggests that a NORMAL diet will shorten the duration of diarrhea. Remember: diarrhea may increase in volume if you provide more food to be digested. If you are vomiting, provide clear liquids on the first day of illness. Pedialyte or Ricelyte, watered-down juices (EXCEPT apple juice) are useful supplements to the diet. Try to avoid giving large amounts of tap-water, since this contains no nutrition and cannot replace the electrolytes and other s ubstances lost in the stool. Then advance to bland foods over the next day or two: the traditional BRAT diet (Bananas, Rice, Applesauce, [place] or Tea) is well-tolerated and usually produces little increase in the amount of diarrhea. Try to get back to a normal diet as soon as possible--including milk products! Please call us if you develop bloody or jet-black stool, repeated vomiting, becomes lethargic, has sunken eyes or does not urinate at least 3 times per day. Infectious diarrhea is highly contagious, but easily prevented: with good hand- washing technique, there should be no spread of this disease to others. If you need help during office hours, please call our Consulting Nurse Line. After hours, call the CareLine at . If your symptoms worsen or new symptoms develop please follow up with your primary care provider in3-4 days. If you develop severe abdominal pain, unable to hydrate orally, unable to urinate, shortness of breath, chest pain, unable to [...] of the urgent care. Ivet Carpio PA-C 07/29/2024, 3:38 PM This note was created using speech recognition software some parts of this note may contain some unintended word substitutions and grammar errors. CASE MANAGER documented in this encounter Nursing Notes * Ashley Desai - 07/29/2024 3:00 PM CST Miriam Murphy is a 33 y.o.female presents to the Urgent Care for DIARRHEA (Experiencing diarrhea, nausea and vomiting x2 days. Unable to keep food and fluids down. Also c/o dizziness, lightheadedness and hot flashes. Tried pepto bismo and OTC anti-diarrheal with no relief. ) How long have you had diarrhea? 2 day(s) How many bowel movements have you had in the last 24 hours? Constant and experienced incontinence Have you had a fever? [place] feverish, Have you had any nausea or vomiting? YES Nausea and Vomiting Have you had any abdominal pain? YES Where in your abdomen is the pain located? upper On a scale of 1 to 10, how severe is your pain? 5 Have you had bloody stools? No, looks black per patient Since your symptoms began, have you lost weight? No Have you used any antibiotics in the last 3 months? No Have you or anyone in your household traveled outside the [place] in the last 30 days?: No Have any of your family members or a close contact been ill? YES Have you tried any treatments? YES OTC Antidirrhoeal: Did not help Patient requests an excuse letter for work/school: No Ashley Desai 07/29/2024, 3:00 PM CASE MANAGER documented in this encounter Plan of Treatment Not on file documented as of this encounter Visit Diagnoses Diagnosis Nausea and vomiting, unspecified vomiting type- Primary Diarrhea, unspecified type Gastroenteritis Other and unspecified noninfectious gastroenteritis and colitis documented in this encounter Care Teams Arc Cutter Plasma Arc Relationship Specialty Start Date End Date Lorrie Otto APRN, [place] [address] [place] [address] PCP - General Certified Nurse [employer] Tech 07/13/21 documented as of this encounter
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
--- OUTSIDE RECORDS SUMMARY | 2024-08-19 13:05 | XMS_ITS | Clinical Summary ---
[facility] Organization [facility] Address [address], [place] [address] Care Team Providers Care Sheet Metal Erector Name Role Phone OttoLorrie cm ALBERT HAAS Primary Care Provider Source Comments You are receiving this document as you are listed as the primary care provider,follow-up provider, or the patient has been referred to you for consultation.This is in compliance with the Medicare and[facility]id EHR Incentive Program,which states Providers who transition their patient to another setting of careor provider of care or refers their patient to another provider of care shouldprovide summary care record for each transition of care or referral. [employer] Allergies Active Allergy Reactions Criticality Noted Date Comments Ciprofloxacin Anaphylaxis,Hives,Re spiratory Distress,Swelling,Other, see comments High 11/15/2013 Throat Hydrocodone Hives High 06/30/2015 Medications PLAN B 0.75 MG OR TABS take as package directs 2 tablets 0 11/17/19 08 Active venlafaxine (AKA EFFEXOR) 37.5 MG tablet Take 1 Tablet (37.5 mg) by mouth three times a day. Active VENTOLIN HFA 108 (90 Base) MCG/ACT inhaler Inhale 2 Puffs every 4 hours as needed. 07/15/19 19 Active amphetamine-dextro amphetamine (ADDERALL) 20 MG tablet Take 1 Tablet (20 mg) by mouth daily. Active cetirizine (ZYRTEC) 10 MG tablet Take by mouth. 05/12/20 24 Active Cholecalciferol (VITAMIN D3) 25 MCG (1000 UT) ta Take by mouth. 06/04/19 25 Active cloNIDine (CATAPRES) 0.2 MG tablet Take 1 Tablet (0.2 mg) by mouth. 01/07/20 24 Active ferrous sulfate (AKA IRON SULFATE) 325 (65 Fe) MG enteric coated tablet Take 1 Tablet (325 mg) by mouth daily at bedtime. 05/12/20 24 Active gabapentin (NEURONTIN) 300 MG capsule Take by mouth. Activ e nicotine (NICODERM CQ) 14 MG/24HR patch 1 Patch daily. 06/03/19 25 Active omeprazole (PRILOSEC) 40 MG capsule Take 1 Capsule (40 mg) by mouth. 01/07/20 24 Active QUEtiapine (SEROQUEL) 100 MG tablet Take 1 Tablet (100 mg) by mouth daily at bedtime. Active ARIPiprazole (ABILIFY) 2 MG tablet Take 1 Tablet (2 mg) by mouth. 07/07/19 25 Active lisinopril (ZESTRIL) 10 MG tablet Take 1 Tablet (10 mg) by mouth daily. 07/07/19 25 Active ibuprofen (MOTRIN) 600 MG tablet Take 1 Tablet (600 mg) by mouth every 6 hours as needed for Pain. 30 Tablet 5 6:16 PM GLUING CREW LEADER 07/26/19 25 Active bacitracin 500 UNIT/GM ointmentIndication s:Partial thickness burn of back of right hand, initial encounter Apply topically once daily to the affected open areas on right hand. 28 g 5 11:52 AM CDT 08/04/19 25 Active amoxicillin (AMOXIL) 500 MG capsuleIndications :OME (otitis media with effusion), bilateral Take 1 Capsule (500 mg) by mouth three times a day for 10 days. 30 Capsule 08/11/19 25 025 Active methylPREDNISolone (MEDROL 21 TABLET DOSEPACK) 4 MG tablet Follow package directions 21 Tablet 06/05/19 25 025 Discontinu ed(*Resolv ed Condition) oxyCODONE (ROXICODONE) 5 MG immediate release tablet Take 1 Tablet (5 mg) by mouth every 6 hours as needed for Pain. 8 Tablet 5 6:16 PM GLUING CREW LEADER 07/26/19 25 025 Discontinu ed(*Resolv ed Condition) ondansetron (ZOFRAN-ODT) 4 MG disintegrating tabletIndications: Nausea and vomiting, unspecified vomiting type Take 1 Tablet (4 mg) by mouth every 8 hours as needed for Nausea for up to 14 days. 10 Tablet 07/30/19 25 025 predniSONE (DELTASONE) 20 MG tabletIndications: Wheezing Take 2 Tablets (40 mg) by mouth daily for 5 days. 10 Tablet 08/11/19 025 Active Problems Problem Noted Date Diagnosed Date Second degree burn of right hand and fingers Acute pain due to trauma 08/18/2024 Second degree burn of back of right hand 025 Tobacco use disorder 01/01/2010 Anxiety 05/27/2004 Encounters Date Type Department Care Team Description 08/10/2024 10:00 AM CDT Office Visit [facility] [address] [phone] Ivet Carpio PA-C OME (otitis media with effusion), bilateral (Primary Dx); Viral illness; Wheezing 08/03/2024 11:00 AM CDT Office Visit [facility] [address] [place] [address] Megan Mullen APRN, MANAGER CLEANING Partial thickness burn of back of right hand, initial encounter (Primary Dx) 07/29/2024 3:00 PM GLUING CREW LEADER Office Visit [address] [phone] Ivet Carpio PA-C Nausea and vomiting, unspecified vomiting type (Primary Dx); Diarrhea, unspecified type; Gastroenteritis 07/28/2024 Notes/Orders [facility] [address] [place] [address] Suleman Villa MD Routine medical exam 07/25/2024 2:42 PM GLUING CREW LEADER - 07/25/2024 6:[address] [facility] Emergency [facility] Emergency Dept [address] [place] [address] Júnior Sharma MD Burn of back of right hand, unspecified burn degree, initial encounter (Primary Dx) Discharge Disposition: Home 07/25/2024 2:20 PM GLUING CREW LEADER Office Visit [facility] [address] [place] [phone] Aleena Aponte MD Partial thickness burn of back of right hand, initial encounter (Primary Dx) 06/05/2024 6:20 PM GLUING CREW LEADER Office Visit [facility] [address] [place] [phone] Lucille Wyman MD Mild intermittent asthma with exacerbation (HRC) (Primary Dx); Tobacco use disorder (HRC); Bronchitis 05/31/2024 10:40 AM GLUING CREW LEADER Office Visit [address] [phone] Myke Posada MD Upper respiratory tract infection, unspecified type (Primary Dx); Elevated BP without diagnosis of hypertension; Non-recurrent acute suppurative otitis media of right ear without spontaneous rupture of tympanic membrane from Last 3 Months Social History Tobacco Use Types Packs/Day Years Used Date Smoking Tobacco: Every Day Cigarettes 0.2 5 Smokeless Tobacco: Never Tobacco Cessation:Ready to Q uit: Not Asked; Counseling Given: Not Answered Alcohol Use Standard Drinks/Week Comments No 0 [...] on file Sexual Orientation Not on file Last Filed Vital Signs Vital Sign Reading Time Taken Comments Blood Pressure 108/83 08/10/2024 10:03 AM CDT Pulse 106 08/10/2024 10:03 AM CDT Temperature 37 C (98.6 F) 08/10/2024 10:03 AM CDT Respiratory Rate 16 08/10/2024 10:03 AM CDT Oxygen Saturation 99% 08/10/2024 10:03 AM CDT Inhaled Oxygen Concentration - - Weight - - Height - - Body Mass Index - - Plan of Treatment Health Maintenance Due Date Last Done Comments Cervical Cancer Screening Due 1989 Hep C Screening (Preventive Services) 1989 Asthma ACT (score of 20 or higher) 1993 Adult Preventive Visit 11/27/2007 HepB (1) 2008 Influenza (#1) 2024 02/25/2014, 04/12/2006 DTaP/Tdap/Td (10 - Tdap) 10/22/2033 024, 03/30/2013, 12/12/2010, Additional history exists Zoster/Shingles (1 of 2) 11/27/2039 IPV (Polio) Completed 08/08/1994, 05/28, 03/27/1990, Additional history exists HPV Vaccine Completed 12/25/2006, 07/26, 06/18/2006 HepA Aged Out 12/12/2010 No longer eligi ble based on patient's age to complete this topic HIV Screening (Preventive Services) Completed 07/02/2023 Pneumococcal Completed 10/23/2023 COVID-19 Vaccine Completed 07/07/2024, , 06/20/2021, Additional history exists Hib Aged Out No longer eligi ble based on patient's age to complete this topic MCV4 Aged Out No longer eligi ble based on patient's age to complete this topic Meningococcal B Aged Out No longer el igible based on patient's age to complete this topic Insurance BCBS PMAP [facility] [place] [id number] Care Teams Sheet Metal Erector Relationship Specialty Start Date End Date Lorrie Otto APRN, GYPSYM [address] [place] [address] PCP - General Certified Nurse Design Assembler 07/13/21
--- OUTSIDE RECORDS SUMMARY | 2024-08-19 13:05 | XMS_ITS | Encounter Summary ---
Author Organization [facility] Address [address], [place] [address] Care Team Providers Care Pants Presser Name Role Phone OttoLorrie stewart Alex HAAS CNM Primary Care Provider Encounter Details Date Type Department Care Team (Late st Contact Info) Description 07/28/2024 Notes/Orders [facility] [address] [place] [phone] Suleman Villa MD [address] [place] [address] Routine medical exam Social History Tobacco Use Types Packs/Day Years [...] as of this encounter Plan of Treatment Scheduled Orders Name Type Priority Associated Diagnoses Orde r Schedule DNA Analysis Discrete Sequence Variation Panel (Blood) (Initial) Lab Routine Routine medical exam Expected: 07/28/2024 (Approximate), Expires: 01/28/2025 documented as of this encounter Visit Diagnoses Diagnosis Routine medical exam Routine general medical examination at a health care facility documented in this encounter Care Teams Pants Presser Relationship Specialty Start Date End Date Lorrie Otto APRN, ALBERT [address] [place] [address] PCP - General Certified Nurse Sales And Marketing Administrator 07/13/21 documented as of this encounter
--- OUTSIDE RECORDS SUMMARY | 2024-08-19 13:06 | XMS_ITS | Clinical Summary ---
Author Organization [employer] [facility] Address [address] [place] [address] Care Team Providers Care Gunner'S Mate M Name Role Phone Gerber Gibson MD Primary Care Provider [phone] Allergies Active Allergy Reactions Criticality Noted Date Comments Ciprofloxacin Anaphylaxis,Hives High 01/16/2015 Hydrocodone Hives High 06/30/2015 Medications NebulizerIndicati ons:Moderate persistent asthma without complication (HC) Nebulizer, disposable neb kit x 4, reuseable neb kit x 1, mask x 1, filters x 1. Frequency of use: daily; Medication: Albuterol Length of need: 99 months 1 Each 05/17/20 22 Active cholecalciferol (VITAMIN D3) 1,000 unit tabletIndications :Vitamin D deficiency Take 3 Tablets (3,000 units) by mouth once daily. 270 Tablet 3 06/11/19 24 Active albuterol 0.083% (2.5 mg/3 mL) neb solutionIndicatio ns:Moderate persistent asthma without complication (HC) INHALE 3ML(2.5 MG) VIA A NEBULIZER EVERY 4 HOURS IF NEEDED FOR SHORTNESS OF BREATH OR WHEEZING. 90 mL 08/16/19 24 Active nicotine 14 mg/24 hr (NICODERM; HABITROL) 14 mg/24 hr patchIndications: Encounter for smoking cessation counseling Apply 1 Patch on dry, clean, hairless skin once daily. 14 Patch 3 09/23/19 24 Active cetirizine (ZYRTEC) 10 mg tabletIndications :Environmental allergies Take 1 Tablet (10 mg) by mouth once daily. 90 Tablet 2 11/10/19 24 Active etonogestreL-ethi nyl estradioL (Haloette) vaginal ringIndications:P britany pain INSERT 1 RING VAGINALLY AND LEAVE IN PLACE FOR 3 CONSECUTIVE WEEKS, THEN REPLACE WITH NEW RING. TO USE CONTINUOUSLY 4 RINGS IN 3 MONTHS 4 Each 12/04/19 24 Active Ventolin HFA 90 mcg/actuation inhalerIndication s:Moderate persistent asthma without complication (HC) Inhale 2 Puffs by mouth every 4 hours if needed for Shortness Of Breath. 36 g 5 01/07/20 24 Active cloNIDine HCL (CATAPRES) 0.2 mg tabletIndications :Sleep disturbance Take 1 Tablet (0.2 mg) by mouth at bedtime. 90 Tablet 3 01/07/20 24 Active QUEtiapine (SEROQUEL) 100 mg tabletIndications :Insomnia, idiopathic Take 1 Tablet (100 mg) by mouth at bedtime. 90 Tablet 3 01/07/20 24 Active omeprazole (PRILOSEC) 40 mg Delayed-Release capsuleIndication s:Chronic GERD Take 1 Capsule (40 mg) by mouth once daily before a meal. 90 Capsule 3 01/07/20 24 Active gabapentin (NEURONTIN) 300 mg capsuleIndication s:Generalized anxiety disorder TAKE 2 CAPSULES BY MOUTH EVERY MORNING AND 3 CAPSULES BY MOUTH EVERY EVENING 450 Capsule 3 01/07/20 24 Active ferrous sulfate 325 mg delayed release tabletIndications :RLS (restless legs syndrome) TAKE 1 TABLET BY MOUTH AT BEDTIME 90 Tablet 1 06/22/19 25 Active dextroamphetamine -amphetamine (AdderalL) 20 mg tabletIndications :ADHD (attention deficit hyperactivity disorder), inattentive type Take 1 Tablet (20 mg) by mouth once daily. 30 Tablet 08/07/19 25 025 Active dextroamphetamine -amphetamine (AdderalL) 20 mg tabletIndications :ADHD (attention deficit hyperactivity disorder), inattentive type Take 1 Tablet (20 mg) by mouth once daily. 30 Tablet 09/06/19 25 Active ARIPiprazole (ABILIFY) 2 mg tabletIndications :Auditory hallucination Take 1 Tablet (2 mg) by mouth once daily. 30 Tablet 07/07/19 25 Active lisinopriL (PRINIVIL; ZESTRIL) 10 mg tabletIndications :HTN (hypertension) Take 1 Tablet (10 mg) by mouth once daily. 30 Tablet 11 07/07/19 25 Active dextroamphetamine -amphetamine (AdderalL) 20 mg tabletIndications :ADHD (attention deficit hyperactivity disorder), inattentive type Take 1 Tablet (20 mg) by mouth once daily. 30 Tablet 07/07/19 25 025 Active Problems Problem Noted Date Diagnosed Date ADHD (attention deficit hype ractivity disorder), inattentive type 11/15/2023 HTN (hypertension) 06/05/2023 Auditory hallucination 12/03/2022 RLS (restless legs syndrome) 12/03/2022 Environmental allergies 12/03/2022 Chronic GERD 12/03/2022 Vitamin D deficiency 12/03/2022 Generalized anxiety disorder 09/22/2021 Overview (09/22/2021): Overview: Created by Conversion Recurrent major depressive disorder, in remissio n 09/22/2021 PTSD (post-traumatic stress disorder) 09/22/2021 Insomnia, idiopathic 09/22/2021 History of methamphetamine abuse 08/15/2021 Mild intermittent asthma 01/21/2020 Nicotine use disorder 01/06/2015 Vaginal delivery 05/19/2013 care following vaginal delivery 05/19 Pap smear for cervical cancer screening Overview (09/22/2021): 07/2021 NIL/HPV negative. Plan: Pap/HPV due 07/2026 Encounters Date Type Department Care Team Description 07/07/2024 8:20 AM TELLER COORDINATOR Office Visit [facility] [address] [place] [address] Gerber Gibson MD Medication Management; Blood Pressure (Blood pressure has been running higher for the last 6 months) 07/07/2024 Travel 06/20/2024 Refill [facility] [address] [place] [address] Gerber Gibson MD Refill Request (Ferrous Sulfate) 06/08/2024 Travel from Last 3 Months Immunizations Immunization Administration Dates Next Due COVID-19 VACCINE SPIKEVAX (M ODERNA 50MCG/0.5ML) 12YO+ PFS 07/07/2024,10/23/2023 COVID-19 vaccine (Moderna 100mcg/0.5mL) PF, MDV 11/11/2020,10/03/2020 DTaP 08/08/1994, 2,05/29/1990,1989,01/28/1990 Hepatitis A (Adult) 12/12/2010 Hepatitis B (Adult) 09/05/1999,08/07/1999,1994 Hepatitis B (Peds) 07/03/2006,1989 Human Papilloma Virus Vaccine 12/25/2006, 007,06/18/2006 Inactivated Polio Vaccine 08/08/1994,,03/27/1990,1989 Influenza Virus, Unspecified 04/12/2006 Influenza, IIV3 (Age >=3 years) 02/25/2014 MMR 08/07/1999,06/15/1991,1989 Pneumococcal Conj 20-valent (Prevnar 20) 10/23/2023 Td (Age >=7 Years) 1989 Tdap 10/23/2023, 3,12/12/2010,2006 Family History Medical History Relation Name Comments Hypertension Brother Clotting disorder Father Blood Clot . Diabetes Maternal Grandfather Diabetes Maternal Grandmother Heart Disease Maternal Grandmother Alcoholism Mother Liver and Renal Failure Diabetes Mother No Known Problems Paternal Grandfather No Known Problems Paternal Grandmother Relation Name Status Comments Brother Father Alive Maternal Grandfather Maternal Grandmother Alive Mother Paternal Grandfather Paternal Grandmother Social History Tobacco Use Types Packs/Day Years Used Date Smoking Tobacco: Every Day Cigarettes 0.3 20.2 Started: 2004 Passive Smoke Exposure: Current Smokeless Tobacco: Never Tobacco Cessation:Ready to Q uit: No; Counseling Given: No Alcohol Use Standard Drinks/Week Comments Not Currently 0 (1 standard drink = 0.6 oz pur e alcohol) Couple times a year PHQ-2 Answer Date Recorded PHQ-2 TOTAL SCORE 2 07/07/2024 Social Connections Answer Date Recorded Do you often feel lonely or isolated from those around you? 0 11/11/2023 Financial Resource Strain Answer Date R ecorded Difficulty of Paying Living Expenses 3 11/11/2023 Difficulty of Paying Living Expenses Not on file 11/11/2023 Food Insecurity Answer Date Recorded Do you worry your food will run out before you are able to buy more? 1 11/11/2023 Transportation Needs Answer Date Record ed Does lack of transportation keep you from medica l appointments? 1 11/11/2023 Does lack of transportation keep you from work, meetings or getting things that you need? 1 11/11/2023 Housing Stability Answer Date Recorded What is your housing situation today? 1 11/11/2023 Utilities Answer Date Recorded Do you have trouble paying f or utilities (for example, heat, electricity, water, phone)? 1 11/11/2023 Comments No Sex and Gender Information Value Date Recorded Sex Assigned at Not on file Legal Sex Female 1:32 PM TELLER COORDINATOR Gender Identity Not on file Sexual Orientation Not on file Obstetrics History Para Term AB IAB SAB Ectopic Multiple Livin g Live Births 4 1 1 3 1 1 1 Date Outcome GA Total Labor Labor/2nd/3rd Weight Sex Type Anes PTL [place] A1 A5 Name Clin AB AB 2007 IAB 9w0 d 013 Term 40w 0d 2.86 kg (6 lb 4.9 oz) F [facility] (DENISA BOUCHER) Delivery Location:[facility] Comments:dickn:ATUL JO DS:[facility] Last Filed Vital Signs Vital Sign Reading Time Taken Comments Blood Pressure 144/96 07/07/2024 8:29 AM TELLER COORDINATOR Pulse 76 07/07/2024 8:29 AM TELLER COORDINATOR Temperature 36.5 C (97.7 F) 05/02/2024 5:25 PM TELLER COORDINATOR Respiratory Rate 20 04/18/2024 5:32 PM TELLER COORDINATOR Oxygen Saturation 97% 05/02/2024 5:25 PM TELLER COORDINATOR Inhaled Oxygen Concentration - - Weight 91.2 kg (201 lb) 07/07/2024 8:29 AM TELLER COORDINATOR Height 152.4 cm (5') 12/25/2023 9:48 AM CDT Body Mass Index 39.26 12/25/2023 9:48 AM CDT Plan of Treatment Health Maintenance Due Date Last Done Comments Influenza Vaccine (#1) 2024 02/25/2014, 2005 BMI (ht and wt on same day) for age 18+ 12/24/2024 12/25/2023, 06/11/2023, 12/03/2022, Additional history exists Depression screening for age 12+ 07/07/2025 07/07/2024, 01/07/2024, 09/23/2023, Additional history exists Pap test for age 21-65 08/15/2026 08/15/2021, 2021 Tetanus booster 10/22/2033 10/23/2023, 08/2012, 12/12/2010, Additional history exists HIV for age 15-65 Completed 07/02/2023, , 06/11/2022 Hepatitis C screening for ag e 18-79 Completed 07/02/2023, 12/03/2022, 11/08/2015 Pneumococcal series for age 6-49 Completed 10/23/19 24 Tdap Completed 10/23/2023, 08/2012, 12/12/2010, Additional history exists COVID-19 vaccine series Completed 07/07/19, 10/23/2023, 06/20/2021, Additional history exists Procedures Procedure Name Priority Date/Time Associated Diagnosis Comments ANTI HIV 1/2 Routine 07/02/2023 9:36 AM TELLER COORDINATOR Screen for STD (sexually transmitted disease) ANTI HCV Routine 07/02/2023 9:36 AM TELLER COORDINATOR Screen for STD (sexually transmitted disease) HPV HIGH RISK Routine 08/15/2021 1:35 PM CDT Pap smear for cervical cancer screening from Last 3 Months or Most Recently Relevant to Health Maintenance Results * ANTI HCV (07/02/2023 9:36 AM TELLER COORDINATOR) HEPATITIS C ANTIBODY Non-Reacti ve Non-React macrina 07/02/2023 6:50 PM TELLER COORDINATOR [facility] Comment:Please note, per www .CDC.gov: If a patient is known to be at high risk of HCV infection, or is symptomatic, and the physician's suspicion of HCV infection is high, HCV RNA testing is often employed and is of diagnostic value, even after an initial negative anti-HCV test result. Blood BLOOD SPECIMEN / Unknown Venipuncture / Unknown 07/02/2023 9:36 AM TELLER COORDINATOR 07/02/2023 9:36 AM TELLER COORDINATOR Elayne Hudson PRECISION LENS GENERATOR SEND OUTS Final Res ult Performing Organization Address City/[facility] Co de Phone Number [facility] [address] [place] [address], * ANTI HIV 1/2 (07/02/2023 9:36 AM TELLER COORDINATOR) HIV-1/HIV-2 SCREEN Non-Reacti ve Non-Reacti ve 07/02/2023 6:58 PM TELLER COORDINATOR [facility] Comment:HIV-1 p24 and HIV-1/ HIV-2 Ab Not Detected. Blood BLOOD SPECIMEN / Unknown Venipuncture / Unknown 07/02/2023 9:36 AM TELLER COORDINATOR 07/02/2023 9:36 AM TELLER COORDINATOR Elayne Hudson PRECISION LENS GENERATOR SEND OUTS Final Res ult Performing Organization Address [facility] de Phone Number [facility] [address] [place] [address], * HPV HIGH RISK (08/15/2021 1:35 PM CDT) TYPE 16 Negative Negative 08/18/2021 2:12 PM CDT [facility] TYPE 18 Negative Negative 08/18/2021 2:12 PM CDT [facility] OTHER HIGH RISK TYPES Negative Negative 08/18/2021 2:12 PM CDT [facility] Other (Cervical) Non-Blood / Unknown 08/15/2021 1:35 PM CDT 08/16/2021 8:51 AM CDT Narrative [facility] - 08/18/2021 2:12 PM CDT HPV types 16, 18, 31, 33, 35, 39, 45, 51, 52, 56, 58, 59, 66 and 68 DNA were undetectable or below the pre-set threshold. Methodology: Mayte Ras 4800 HPV Test Elayne Hudson NP MICROBIOLOGY Final Res ult [facility] [address] [place] [address], [place] from Last 3 Months or Most Recently Relevant to Health Maintenance Insurance [phone] [place] [id number] [employer] [phone] [place] [id number] [facility] [employer] MD Advance Directives * Full Code (Latest Code Status on File) Date Activated Date Inactivated Comments 05/19/2013 9:24 AM 05/20/2013 4:56 PM * Full Code Date Activated Date Inactivated Comments 05/19/2013 2:29 AM 05/19/2013 9:24 AM * Full Code Date Activated Date Inactivated Comments 05/19/2013 2:12 AM 05/19/2013 2:29 AM * Full Code Date Activated Date Inactivated Comments 05/18/2013 2:20 PM 05/18/2013 6:36 PM Care Teams Gunner'S Mate M Relationship Specialty [place] [address] [place] [address] PCP - General 01/22/22
--- OUTSIDE RECORDS SUMMARY | 2024-08-19 13:06 | XMS_ITS | Encounter Summary ---
Author Organization [facility] Address [address] [place] [address] Care Team Providers Care Commercial Fisher Name Role Phone Myke Ramirez MD Unavailable [phone] Ref-Primary, Physician Primary Care Provider Gerber Gibson MD Primary Care Provider [phone] Encounter Details Date Type Department Care Team (Late st Contact Info) Description 06/21/2021 [facility] [place] [address] [address] [place] Social History Tobacco Use Types Packs/Day Years Used Date Smoking Tobacco: Light Smoker Cigarettes 0.3 6 Smokeless Tobacco: Never Comments:pt currently trying to quit Alcohol Use Standard Drinks/Week Comments Yes 0 (1 standard drink = 0.6 oz pure alcohol) Alcoholic Drinks/day: 1 alcholic beverage every 6 months PHQ-2 Answer Date Recorded PHQ-2 Score 0 05/04/2020 Comments No Sex and Gender Information Value Date Recorded Sex Assigned at Female 08/19/2020 12:57 AM CDT Legal Sex Female 9:14 AM PASTRY ARTIST Gender Identity Female 08/19/2020 12:57 AM CDT Sexual Orientation Bisexual 08/19/2020 12 :57 AM CDT documented as of this encounter Plan of Treatment Not on file documented as of this encounter Visit Diagnoses Not on filedocumented in this encounter Additional Health Concerns Assessment Noted Time PHQ-9 Depression Total Score: 0 10/21/19 21 8:29 AM CDT documented as of this encounter Care Teams Commercial Fisher Relationship Specialty Start Date End Date No Ref-Primary, Physician PCP - General 03/18/21 12/03/21 [place] [address] [place] [address] PCP - General 12/04/21 Myke Ramirez MD [address] [place] [address] Assigned PCP 11/09/20 08/16/23 documented as of this encounter
--- OUTSIDE RECORDS SUMMARY | 2024-08-19 13:06 | XMS_ITS | Encounter Summary ---
Author Organization [facility] Address [address] [place] [address] Care Team Providers Care Environmental Emergencies Planner Name Role Phone Myke Ramirez MD Unavailable [phone] Ref-Primary, Physician Primary Care Provider Gerber Gibson MD Primary Care Provider [phone] Encounter Details Date Type Department Care Team (Late st Contact Info) Description 03/18/2021 Documentation Only INTERFACED REPORT Unknown, Provider Social History Tobacco Use Types Packs/Day Years [...] AM CDT Legal Sex Female 9:14 AM GRADE CHECKER Gender Identity Female 08/19/2020 12:57 AM CDT Sexual Orientation Bisexual 08/19/2020 12 :57 AM CDT COVID-19 Exposure Response Date Recorded In the last month, have you been in contact with someone who was confirmed or suspected to have Coronavirus / COVID-19? No / Unsure 03/18/2021 4:20 PM CDT documented as of this encounter Plan of Treatment Not on file documented as of this encounter Visit Diagnoses Not on filedocumented in this encounter Additional Health Concerns Assessment Noted Time PHQ-9 Depression Total Score: 0 10/21/19 21 8:29 AM CDT documented as of this encounter Care Teams Environmental Emergencies Planner Relationship Specialty Start Date End Date No Ref-Primary, Physician PCP - General 03/18/21 12/03/21 [place] [address] [place] [address] PCP - General 12/04/21 Myke Ramirez MD [address] [place] [address] Assigned PCP 11/09/20 08/16/23 documented as of this encounter
--- OUTSIDE RECORDS SUMMARY | 2024-08-19 13:06 | XMS_ITS | Encounter Summary ---
Author Organization [facility] Address [address] [place] [address] Care Team Providers Care Advertising Representative Name Role Phone Annalee Horan APRN BORING MACHINE OPERATOR HELPER Primary Care Provider Myke Ramirez MD Unavailable [phone] Ref-Primary, Physician Primary Care Provider Gerber Gibson MD Primary Care Provider [phone] Encounter Details Date Type Department Care Team (Late st Contact Info) Description 08/04/2020 Records - [facility] CONVERSION Scan, Non-Provider Social History Tobacco Use Types Packs/Day Years Used Date Smoking Tobacco: Never Assessed Cigarettes PHQ-2 Answer Date Recorded PHQ-2 Score 0 05/04/2020 Comments Unknown Sex and Gender Information Value Date Recorded Sex Assigned at Female 08/19/2020 12:57 AM CDT Legal Sex Female 9:14 AM TOOL CRIB MANAGER Gender Identity Female 08/19/2020 12:57 AM CDT Sexual Orientation Bisexual 08/19/2020 12 :57 AM CDT documented as of this encounter Plan of Treatment Not on file documented as of this encounter Visit Diagnoses Not on filedocumented in this encounter Additional Health Concerns Assessment Noted Time PHQ-9 Depression Total Score: 0 10/21/19 21 8:29 AM CDT documented as of this encounter Care Teams Advertising Representative Relationship Specialty Start Date End Date Annalee Horan APRN CNP PCP - General 07/15/19 03/17/21 No Ref-Primary, Physician PCP - General 03/18/21 12/03/21 [place] [address] [place] [address] PCP - General 12/04/21 Myke Ramirez MD [address] [place] [address] Assigned PCP 11/09/20 08/16/23 documented as of this encounter
--- OUTSIDE RECORDS SUMMARY | 2024-08-19 13:06 | XMS_ITS | Clinical Summary ---
Author Organization [facility] Address [address] [place] [address] Care Team Providers Care Demand Manager Name Role Phone Gerber Gibson MD Primary Care Provider [phone] Allergies Active Allergy Reactions Criticality Noted Date Comments Ciprofloxacin Hives,Swelling,Anaph ylaxis,Shortness Of Breath High 11/15/2013 Throat Hydrocodone Hives 06/30/2015 Medications budesonide-formot olu (SYMBICORT) 80-4.5 MCG/ACT InhalerIndication s:Mild intermittent asthma without complication Inhale 2 puffs into the lungs 2 times daily 10.2 g 2 Active ibuprofen (ADVIL/MOTRIN) 600 MG tablet Take 1 tablet (600 mg) by mouth every 6 hours as needed for moderate pain (4-6) 60 tablet 3 Active Active Problems Problem Noted Date Diagnosed Date Mild intermittent asthma 01/21/2020 Resolved Problems Problem Noted Date Diagnosed Date Resolved Date Vaginal delivery 05/19/2013 07/07/2020 Immunizations Name Administration Dates Next Due COVID-19 Monovalent 18+ (Moderna) 11/11/2020,02/2021 HPV Quadrivalent 12/25/2006,08/19/2006, 7 Hepatitis A (VAQTA)(ADULT 19+) 12/12/2010 Hepatitis B, Adult (Energix-B/Recombivax HB) 09/05/1999,08/07/1999,08/08/1994 MMR (MMRII) 08/07/1999,06/15/1991,1989 Poliovirus, inactivated (IPV) 08/08/1994 ,06/15/1991,03/27/1990,1989 TDAP Vaccine (Adacel) 03/30/2013,12/12/2010,11/2006 Family History Medical History Relation Comments Diabetes Mother Hypertension Mother Relation Status Comments Mother Social History Tobacco Use Types Packs/Day Years Used Date Smoking Tobacco: Light Smoker Cigarettes 0.3 6 Smokeless Tobacco: Never Comments:pt currently trying to quit Alcohol Use Standard Drinks/Week Comments Yes 0 (1 standard drink = 0.6 oz pure alcohol) Alcoholic Drinks/day: 1 alcholic beverage every 6 months PHQ-2 Answer Date Recorded PHQ-2 Score 0 05/04/2020 Adolescent Education Answer Date Record ed Getting School Help Needed Not on file 02/16 Comments No Sex and Gender Information Value Date Recorded Sex Assigned at Female 08/19/2020 12:57 AM CDT Legal Sex Female 9:14 AM BILINGUAL EXECUTIVE ASSISTANT Gender Identity Female 08/19/2020 12:57 AM CDT Sexual Orientation Bisexual 08/19/2020 12 :57 AM CDT Last Filed Vital Signs Vital Sign Reading Time Taken Comments Blood Pressure 120/87 08/28/2022 2:57 AM CDT Pulse 65 08/28/2022 2:57 AM CDT Temperature 36.2 C (97.1 F) 08/27/2022 7:33 PM CDT Respiratory Rate 18 08/28/2022 2:57 AM CDT Oxygen Saturation 99% 08/28/2022 2:57 AM CDT Inhaled Oxygen Concentration - - Weight 92.6 kg (204 lb 2.3 oz) 05/30/2022 2:46 P M BILINGUAL EXECUTIVE ASSISTANT Height 152.4 cm (5') 02/12/2022 8:16 AM CDT Body Mass Index 39.87 02/12/2022 8:16 AM CDT Plan of Treatment Health Maintenance Due Date Last Done Comments ADVANCE CARE PLANNING 1989 ANNUAL REVIEW OF HM ORDERS 1989 ASTHMA ACTION PLAN 1989 HEPATITIS B IMMUNIZATION (4 of 4 - 4-dose series) 10/02/1999 09/05/1999, 08/07/1999, 08/08/1994 Pneumococcal Vaccine: Pediatrics (0 to 5 Years) and At-Risk Patients (6 to 49 Years) (1 of 2 - PCV) 2008 ASTHMA CONTROL TEST 01/02/2021 07/05/2020, 05/04/2020 YEARLY PREVENTIVE VISIT 08/15/2022 08/15/2021 DTAP/TDAP/TD IMMUNIZATION (4 - Td or Tdap) 03/30/2023 03/30/2013, 12/12/2010, 07/03/2006 COVID-19 Vaccine (4 - 2023-2 5 season) 2024 06/20/2021, 11/11/2020, 10/03/2020 INFLUENZA VACCINE (#1) 2024 PHQ-2 (once per calendar year) 2024 05/04/2020, 05/04/2020 PAP 08/15/2024 08/15/2021, 08/15/2021 ZOSTER IMMUNIZATION (1 of 2) 11/27/2039 HPV IMMUNIZATION Completed 12/25/2006, 08/19/2006, 06/18/2006 HEPATITIS C SCREENING Completed 11/23/2015 HIV SCREENING Completed 06/11/2022 MENINGITIS IMMUNIZATION Aged Out No l onger eligible based on patient's age to complete this topic Procedures Procedure Name Priority Date/Time Associated Diagnosis Comments ACUTE HEPATITIS PANEL Routine 11/23/2015 3:58 PM CDT from Last 3 Months or Most Recently Relevant to Health Maintenance Results * Acute hepatitis panel (11/23/2015 3:58 PM CDT) Hepatitis A Antibody IgM Negative Negative 11/25/2015 8:41 AM CDT [facility] Hepatitis B Core Antibody IgM Negative Negative 11/25/2015 8:41 AM CDT [facility] Hepatitis B Surface Antigen Negative Negative 11/25/2015 8:41 AM CDT [facility] Hepatitis C Antibody Negative Negative 11/25/2015 8:41 AM CDT [facility] Blood specimen (specimen) Venipuncture / Unknown 11/23/2015 3:58 PM CDT 11/23/2015 6:39 PM CDT us Myke Ramirez MD LAB - BLOOD ORDERABLES Final Re sult [facility] [address] [place] [id number], [facility] [address] [place] [id number] from Last 3 Months or Most Recently Relevant to Health Maintenance Care Teams Demand Manager Relationship Specialty [place] [address] [place] [address] PCP - General 12/04/21
--- OUTSIDE RECORDS SUMMARY | 2024-08-19 13:06 | XMS_ITS | Encounter Summary ---
Author Organization [facility] Address [address] [place] [address] Care Team Providers Care Data Entry Operator Name Role Phone Annalee Horan APRN [facility] Primary Care Provider Myke Ramirez MD Unavailable [phone] Ref-Primary, Physician Primary Care Provider Gerber Gibson MD Primary Care Provider [phone] Encounter Details Date Type Department Care Team (Late st Contact Info) Description 12/29/2015 Records - [facility] CONVERSION Scan, Non-Provider Social History Tobacco Use Types Packs/Day Years Used Date Smoking Tobacco: Never Assessed Comments Unknown Sex and Gender Information Value Date Recorded Sex Assigned at Female 08/19/2020 12:57 AM CDT Legal Sex Female 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 AM 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 Gender Identity Female 08/19/2020 12:57 AM CDT Sexual Orientation Bisexual 08/19/2020 12 :57 AM CDT documented as of this encounter Plan of Treatment Not on file documented as of this encounter Visit Diagnoses Not on filedocumented in this encounter Care Teams Data Entry Operator Relationship Specialty Start Date End Date Annalee Horan APRN CNP PCP - General 07/15/19 03/17/21 No Ref-Primary, Physician PCP - General 03/18/21 12/03/21 [place] [address] [place] [address] PCP - General 12/04/21 Myke Ramirez MD [address] [place] [address] Assigned PCP 11/09/20 08/16/23 documented as of this encounter
--- NOTE | 2024-08-19 13:14 | ED.ABDPAIN ---
HPI - Abdominal Pain General Time Seen by Provider: 13:14 Date Seen: 08/19/24 Chief Complaint: Abdominal Pain Stated Complaint: Abdominal pain Time Seen by Provider: 08/19/24 13:14 Source: patient and RN notes reviewed Mode of arrival: ambulatory Limitations: no limitations History of Present Illness HPI narrative: Miriam is a very pleasant 33-year-old female with history of chronic GERD, environmental allergies, depression, PTSD, insomnia, anxiety, asthma, history of meth use, nicotine use, restless legs is brought to the emergency room by EMS for evaluation regarding abdominal pain. Patient notes the sudden onset of upper abdominal pain yesterday. She is unable to get a small amount of sleep last night. It is associated with nausea and retching. No fever or chills. It has gradually worsened today and thus she called EMS for transport. According to nursing staff she received Toradol and Zofran and route to the hospital. She is still crying quite a bit in her room in is in obvious discomfort. She denies any recent falls or trauma. She has absent gallbladder. She has not had pain like this in the past. She thinks the pain may radiate a little bit to her back but it is mostly along the entire upper aspect of her abdomen a little bit more on the right. She has not taken anything for pain at this point. Related Data Home Medications ?Medication ?Instructions ?Recorded ?Confirmed ferrous sulfate PO 05/24/23 gabapentin .Route 05/24/23 omeprazole magnesium PO 05/24/23 albuterol sulfate 2.5 mg/3 mL 2.5 mg PRN 06/04/23 (0.083 %) solution for nebulization albuterol sulfate 90 mcg/actuation 1 - 2 puff inhalation Q6H PRN 06/04/23 08/19/24 aerosol inhaler (Ventolin HFA) wheezing cetirizine 10 mg tablet 10 mg PO DAILY 06/04/23 08/19/24 cholecalciferol (vitamin D3) 1,250 1,250 mcg PO TID 06/04/23 08/19/24 mcg (50,000 unit) capsule clonidine HCl 0.2 mg tablet 0.2 mg PO QPM 06/04/23 08/19/24 dextroamphetamine-amphetamine 20 1 tab PO DAILY 06/04/23 08/19/24 mg tablet etonogestrel 0.12 mg-ethinyl vag ring vaginal 06/04/23 estradiol 0.015 mg/24 hr vaginal ring (EluRyng) ferrous sulfate 325 mg (65 mg 325 mg PO QPM 06/04/23 08/19/24 iron) tablet,delayed release gabapentin 300 mg capsule 300 mg PO Q12H 06/04/23 08/19/24 hydroxyzine HCl 25 mg tablet 25 mg PO PRN 06/04/23 ibuprofen 600 mg tablet 600 mg PO Q6H PRN 06/04/23 09/02/23 omeprazole 40 mg capsule,delayed 40 mg PO DAILY 06/04/23 08/19/24 release quetiapine 100 mg tablet 100 mg PO DAILY 06/04/23 08/19/24 quetiapine 50 mg tablet 50 mg PO QPM 06/04/23 08/19/24 Allergies Allergy/AdvReac Type Severity Reaction Status Date / Time ciprofloxacin Allergy Severe Anaphylaxis Verified 08/19/24 14:12 hydrocodone Allergy Intermediate Unknown Verified 08/19/24 14:12 Review of Systems Status of ROS Reports: 10 or more systems reviewed and unremarkable except as noted in History and below Const Denies: fever, chills or fatigue Eyes Denies: change in vision ENMT Denies: throat pain, neck pain or nasal congestion Cardio Denies: chest pain, swelling of feet/ankles, lightheadedness or shortness of breath with exertion Resp Denies: shortness of breath or cough GI Reports: abdominal pain, nausea, vomiting and other (Feels like she is bloated); Denies: diarrhea or constipation Reports: painful urination; Denies: urinary frequency Musculo Denies: neck pain Integ/Breast Denies: rash Endo Denies: fatigue PFSH PFSH Social History Smoking Status: Heavy tobacco smoker What tobacco products do you use: cigarettes Smoking packs per day: 0.5 Smoking cigarettes per day: 10.0 Years smoked: 18 Smoking pack-years: 9.00 Do you use any of these nicotine containing products: None Second hand tobacco smoke exposure: Yes How often do you have a drink containing alcohol: never AUDIT-C Alcohol total score: 0 Non-prescribed substance use: denies use service: No Exam Narrative: Exam Narrative: Patient is alert and in obvious discomfort. She is very tearful. EOM is full. Head is atraumatic. Oral cavity moist mucous membranes. Neck is supple without lymphadenopathy. Heart with a tachycardic rate normal rhythm. Lungs are clear bilaterally abdomen is tender in the right upper quadrant and epigastrium. Bowel sounds are decreased. Moving all extremities. Const: Vital Signs, click to edit/add: Vital Signs - 24 hr 08/19/24 13:05 08/19/24 13:18 08/19/24 13:30 Temperature 100.5 F H Pulse Rate 122 H 117 H Pulse Rate [Pulse Oximeter] 111 H Respiratory Rate 22 Blood Pressure Blood Pressure [Ri ght Upper Arm] 164/124 H Pulse Oximetry 96 97 97 Oxygen Delivery Me thod Room Air 08/19/24 13:33 08/19/24 13:35 08/19/24 13:45 Temperature Pulse Rate 109 H 111 H 100 Pulse Rate [Pulse Oximeter] Respiratory Rate 16 Blood Pressure 128/80 128/80 Blood Pressure [Ri ght Upper Arm] Pulse Oximetry 95 96 97 Oxygen Delivery Me thod 08/19/24 14:12 08/19/24 14:15 08/19/24 14:30 Temperature Pulse Rate 108 H 105 H 107 H Pulse Rate [Pulse Oximeter] Respiratory Rate Blood Pressure Blood Pressure [Ri ght Upper Arm] Pulse Oximetry 96 98 96 Oxygen Delivery Me thod 08/19/24 14:31 Temperature Pulse Rate 107 H Pulse Rate [Pulse Oximeter] Respiratory Rate 16 Blood Pressure 125/63 Blood Pressure [Ri ght Upper Arm] Pulse Oximetry 96 Oxygen Delivery Me thod Documenting provider has reviewed patient's vital signs: yes Course Course ED Course: Differential diagnosis includes but is not limited to gastritis, colitis, small-bowel obstruction, pancreatitis, hepatitis, urinary tract infection, ureteral colic. Will place IV and give additional dose of pain medication morphine 4 mg IV. Patient does have hydrocodone listed as allergy but has been able to tolerate morphine in the past during our discussion. Will also check CBC, comprehensive panel, lipase, CRP, lactate and urinalysis. IV will be placed on 1 L of normal saline will be given as well. Plan on CT of the abdomen and pelvis with contrast. Reevaluation(s) Reevaluation #1: [place] [address]. Morphine did not appear to significantly reduce pain and we followed this up with a dose of Dilaudid 0.5 mg IV. Patient had already received Zofran and Toradol via EMS. Abdominal CT does show significant inflammation about the duodenum as well as pancreas. Consultations Consultation #1: Consult with Dr. Dobbins regarding this patient. No active diarrhea at this time. No recent travel. No history of autoimmune disorders Crohn's or ulcerative colitis. At this time she does suggest Protonix, IV fluids and will consult with our hospitalist. Vital Signs Vital signs: Initial Vital Signs Temperature 100.5 F H 08/19/24 13:05 Temperature Source Temporal Artery Scan 08/19/24 13:05 Pulse Rate 111 H 08/19/24 13:05 Respiratory Rate 22 08/19/24 13:05 Blood Pressure 164/124 H 08/19/24 13:05 Blood Pressure Mean 137 H 08/19/24 13:05 Pulse Oximetry 96 08/19/24 13:05 Oxygen Delivery Method Room Air 08/19/24 13:05 Vital Signs Temperature 100.5 F H 08/19/24 13:05 Pulse Rate 111 H 08/19/24 13:05 Respiratory Rate 22 08/19/24 13:05 Blood Pressure 164/124 H 08/19/24 13:05 Pulse Oximetry 96 08/19/24 13:05 Oxygen Delivery Method Room Air 08/19/24 13:05 Temperature 100.5 F H 08/19/24 13:05 Pulse Rate 107 H 08/19/24 14:31 Respiratory Rate 16 08/19/24 14:31 Blood Pressure 125/63 08/19/24 14:31 Pulse Oximetry 96 08/19/24 14:31 Oxygen Delivery Method Room Air 08/19/24 13:05 Medications Administered Medications: Discontinued Medications Generic Name Dose Route Start Last Admin Trade Name Freq PRN Reason Stop Dose Admin Hydromorphone HCl 0.5 mg 08/19/24 14:29 08/19/24 14:32 Hydromorphone 0.5 Mg/0.5 Ml Inj IVP 08/19/24 14:30 0.5 mg ONCE ONE Administration Sodium Chloride 1,000 mls @ 1,000 mls/hr 08/19/24 13:21 08/19/24 15:07 0.9 % Sodium Chloride 1000 Ml IV 08/19/24 14:20 Infused .Q1H DK Infusion Morphine Sulfate 4 mg 08/19/24 13:20 08/19/24 13:27 Morphine 4 Mg/Ml Inj IVP 08/19/24 13:21 4 mg ONCE ONE Administration Pantoprazole Sodium 80 mg 08/19/24 14:57 08/19/24 15:07 Pantoprazole Sodium 40 Mg Inj IVP 08/19/24 14:58 80 mg ONCE ONE Administration MDM - Abdominal Pain MDM Narrative Medical decision making narrative: 1. Duodenitis/pancreatitis-radiology report notes unsure which of the inflammatory conditions are primary. At pancreas noted to be very inflamed but normal lipase. Likely duodenitis is primary. Patient feeling much better after morphine, Dilaudid. He has been NPO and we have given her 1 L of normal saline. Electrolytes are reassuring. Creatinine normal at 0.4. Mild elevation of AST and ALT and CRP is 3.9 along with a white count leukocytosis of 19,000. 2. Disposition-admit under the care of Dr. Verma. Further orders and care per hospitalist service. Patient notes use of alcohol on Saturday night August 14. She had no symptoms the following 48 hours. Symptoms started yesterday. Denies history of chronic alcohol use. Medical Records Attestation: I reviewed the patient's medical records. Lab Data Attestation: I reviewed the patient's lab results. Labs: Lab Results 08/19/24 Range/Units 13:28 WBC 19.23 H (4.50-11.00) K/uL RBC 4.47 (4.00-5.20) m/uL Hgb 13.4 (12.0-16.0) gm/dL Hct 37.6 (33.0-51.0) % MCV 84 (80-100) fL MCH 30 (26-34) pg MCHC 36 (32-36) gm/dL RDW Coeff of [place] 12.4 (11.5-15.5) % Plt Count 307 (140-440) K/uL Neut % (Auto) 75.0 H (42.0-72.0) % Lymph % (Auto) 14.6 L (20-44) % [place] % (Auto) 7.3 (0.0-11.0) % Eos % (Auto) 1.9 (0.0-7.0) % Baso % (Auto) 0.1 (0.0-3.0) % Neut # (Auto) 14.40 H (1.7-7.0) K/uL Lymph # (Auto) 2.80 (0.90-2.90) K/uL [place] # (Auto) 1.40 H (0.00-0.90) K/UL Eos # (Auto) 0.40 (0.00-0.50) K/uL Baso # (Auto) 0.00 (0.00-0.30) K/uL Abs Immat Gran (auto) 0.20 (0.00-0.30) K/uL Imm/Tot Granulo (auto) 1.1 % Sodium 134 L (135-149) mmol/L Potassium 4.1 (3.6-5.1) mmol/L Chloride 106 (96-114) mmol/L Carbon Dioxide 16 L (20-32) mmol/L Anion Gap 12 (7-15) mEq/L BUN 6 (5-24) mg/dL Creatinine 0.4 L (0.5-1.5) mg/dL Estimated Creat Clear 142.35 Estimated GFR 133 ml/min Glucose 90 (60-115) mg/dL Lactate 1.6 (0.5-1.9) mmol/L Calcium 8.4 (8.4-10.6) mg/dL Total Bilirubin 0.9 (0.1-1.5) mg/dL AST 43 H (12-35) U/L ALT 66 H (4-35) U/L Alkaline Phosphatase 72 (40-150) U/L C-Reactive Protein 3.9 H (0.5-1.0) mg/dL Total Protein 7.3 (6.0-8.3) g/dL Albumin 3.8 (3.3-5.0) g/dL Lipase 156 (23-300) U/L Imaging Data CT scan - abdomen: Attestation: I have reviewed the pertinent imaging results. My impression: Significant amount of inflammation surrounding the pancreas. Radiologist's impression: ower chest: No focal consolidation. Liver: No suspicious focal hepatic lesion. Right hepatic dome excluded from field of view. Gallbladder and bile ducts: Post cholecystectomy. Pancreas: Inflammatory changes abutting the pancreatic uncinate process, head, and body. Relatively homogeneous enhancement of the pancreatic parenchyma. No pancreatic duct dilation. Spleen: Unremarkable. Adrenal glands: Unremarkable. Kidneys: Kidneys enhance symmetrically, without hydronephrosis. Prominent lobulation of the right kidney. Retroperitoneum: No lymphadenopathy. Bowel and mesentery: Scattered colonic diverticulosis, without evidence of acute diverticulitis. Extensive inflammation surrounding the duodenum. No pneumoperitoneum. Bladder: Unremarkable for degree of distention. Reproductive organs: Unremarkable. Pelvic lymph nodes: No lymphadenopathy. Vessels: Unremarkable. Abdominal wall: No acute abdominal wall abnormality. Bones: No suspicious/aggressive focal osseous lesion. IMPRESSION: Extensive inflammatory changes abutting the pancreas as well as the duodenum. This may reflect acute pancreatitis with reactive duodenitis, or primary duodenitis with reactive pancreatitis. Recommend correlation with serum lipase/amylase. Discharge Plan Discharge Clinical Impression: Duodenitis Pancreatitis Qualifiers: Chronicity: acute Pancreatitis type: unspecified pancreatitis type Acute pancreatitis complication: unspecified Qualified Code(s): K85.90 - Acute pancreatitis without necrosis or infection, unspecified Patient Disposition: Admitted As Inpatient Condition: Improved
[2024-08-19] MEDS: 0.9 % SODIUM CHLORIDE 1000 ml 1,000 ML IV (13:27)
[2024-08-19] MEDS: MORPHINE 4 MG/ML INJ IVP (13:27)
[2024-08-19 13:39] LABS: Basophils Percent Auto 0.1 % (0.0-3.0); Eosinophils Percent Auto 1.9 % (0.0-7.0); Hematocrit 37.6 % (33.0-51.0); Hemoglobin* 13.4 gm/dL (12.0-16.0); Immature Granulocytes Pct Auto 1.1 %; Lymphocytes Percent Auto 14.6 % (20-44); Mean Corpuscular HGB Conc 36 gm/dL (32-36); Mean Corpuscular Hemoglobin 30 pg (26-34); Mean Corpuscular Volume 84 fL (80-100); Monocytes Percent Auto 7.3 % (0.0-11.0); Platelet Count* 307 K/uL (140-440); RDW Coefficient of Variation % 12.4 % (11.5-15.5); Red Blood Count 4.47 m/uL (4.00-5.20); White Blood Count* 19.23 K/uL (4.50-11.00)
[2024-08-19 13:40] LABS: Lactate* 1.6 mmol/L (0.5-1.9)
--- NOTE | 2024-08-19 13:48 | CRLHL7_ITS ---
For Patients: As a result of the Century Cures Act, medical imaging exams and procedure reports are released immediately into your electronic medical record. You may view this report before your referring provider. If you have questions, please contact your health care provider. INDICATION: Upper abdominal pain. TECHNIQUE: CT abdomen and pelvis acquired with 100 mL Isovue 370 IV contrast. COMPARISON: None available. FINDINGS: Lower chest: No focal consolidation. Liver: No suspicious focal hepatic lesion. Right hepatic dome excluded from field of view. Gallbladder and bile ducts: Post cholecystectomy. Pancreas: Inflammatory changes abutting the pancreatic uncinate process, head, and body. Relatively homogeneous enhancement of the pancreatic parenchyma. No pancreatic duct dilation. Spleen: Unremarkable. Adrenal glands: Unremarkable. Kidneys: Kidneys enhance symmetrically, without hydronephrosis. Prominent lobulation of the right kidney. Retroperitoneum: No lymphadenopathy. Bowel and mesentery: Scattered colonic diverticulosis, without evidence of acute diverticulitis. Extensive inflammation surrounding the duodenum. No pneumoperitoneum. Bladder: Unremarkable for degree of distention. Reproductive organs: Unremarkable. Pelvic lymph nodes: No lymphadenopathy. Vessels: Unremarkable. Abdominal wall: No acute abdominal wall abnormality. Bones: No suspicious/aggressive focal osseous lesion. IMPRESSION: Extensive inflammatory changes abutting the pancreas as well as the duodenum. This may reflect acute pancreatitis with reactive duodenitis, or primary duodenitis with reactive pancreatitis. Recommend correlation with serum lipase/amylase. Please note that all CT scans at this facility use dose modulation, iterative reconstruction, and/or weight-based dosing when appropriate to reduce radiation dose to as low as reasonably achievable. Dictated by Agatha Mills MD @ 08/19/2024 2:34:41 PM (Electronically Signed)
--- OUTSIDE RECORDS SUMMARY | 2024-08-19 13:49 | XMS_ITS | Encounter Summary ---
Author Organization [facility] Address [address] [place] [address] Care Team Providers Care Hogshead Salvage Name Role Phone Annalee Horan APRN [facility] Primary Care Provider Myke Ramirez MD Unavailable [phone] Ref-Primary, Physician Primary Care Provider Gerber Gibson MD Primary Care Provider [phone] Encounter Details Date Type Department Care Team (Late st Contact Info) Description 12/29/2015 Records - [facility] CONVERSION Scan, Non-Provider Social History Tobacco Use Types Packs/Day Years Used Date Smoking Tobacco: Never Assessed Comments Unknown Sex and Gender Information Value Date Recorded Sex Assigned at Female 08/19/2020 12:57 AM CDT 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 Gender Identity Female 08/19/2020 12:57 AM CDT Sexual Orientation Bisexual 08/19/2020 12 :57 AM CDT documented as of this encounter Plan of Treatment Not on file documented as of this encounter Visit Diagnoses Not on filedocumented in this encounter Care Teams Hogshead Salvage Relationship Specialty Start Date End Date Annalee Horan APRN CNP PCP - General 07/15/19 03/17/21 No Ref-Primary, Physician PCP - General 03/18/21 12/03/21 [place] [address] [place] [address] PCP - General 12/04/21 Myke Ramirez MD [address] [place] [address] Assigned PCP 11/09/20 08/16/23 documented as of this encounter
--- OUTSIDE RECORDS SUMMARY | 2024-08-19 13:49 | XMS_ITS | Encounter Summary ---
Author Organization [facility] Address [address], [place] [address] Care Team Providers Care Water Chemist Name Role Phone OttoLorrie cm ALBERT HAAS Primary Care Provider Reason for Visit * Reason Comments DIARRHEA Experiencing diarrhe a, nausea and vomiting x2 days. Unable to keep food and fluids down. Also c/o dizziness, lightheadedness and hot flashes. Tried pepto bismo and OTC anti-diarrheal with no relief. Encounter Details Date Type Department Care Team (Late st Contact Info) Description 07/29/2024 3:00 PM JANITORIAL SERVICES SUPERVISOR Office Visit [facility] [address] [phone] Ivet Carpio PA-C [address] [place] [address] Nausea and vomiting, unspecified vomiting type [...] Comments Blood Pressure 132/94 07/29/2024 3:00 PM JANITORIAL SERVICES SUPERVISOR Pulse 80 07/29/2024 3:00 PM JANITORIAL SERVICES SUPERVISOR Temperature 36.3 C (97.3 F) 07/29/2024 3:00 PM JANITORIAL SERVICES SUPERVISOR Respiratory Rate 18 07/29/2024 3:00 PM JANITORIAL SERVICES SUPERVISOR Oxygen Saturation 98% 07/29/2024 3:00 PM JANITORIAL SERVICES SUPERVISOR Inhaled Oxygen Concentration - - Weight - - Height - - Body Mass Index - - documented in this encounter Patient Instructions * Patient Instructions* Ivet Carpio PA-C - 07/29/2024 3:00 PM JANITORIAL SERVICES SUPERVISOR Diarrhea diarrhea can be a frustrating experience [...] the traditional BRAT diet (Bananas, Rice, Applesauce, [place] or Tea) is well-tolerated and usually produces [...] the emergency department immediately or call 911 TORIAL SERVICES SUPERVISOR * Attachments The following attachments cannot be sent through Care Everywhere. * Gastroenteritis (Vietnamese) documented in this encounter Progress Notes * [...] experienced incontinence Have you had a fever? [place] feverish, Have you had any nausea or [...] the traditional BRAT diet (Bananas, Rice, Applesauce, [place] or Tea) is well-tolerated and usually produces [...] some unintended word substitutions and grammar errors. TORIAL SERVICES SUPERVISOR documented in this encounter Nursing Notes * [...] experienced incontinence Have you had a fever? [place] feverish, Have you had any nausea or [...] work/school: No Ashley Desai 07/29/2024, 3:00 PM TORIAL SERVICES SUPERVISOR documented in this encounter Plan of Treatment Not on file documented as of this encounter Visit Diagnoses Diagnosis Nausea and vomiting, unspecified vomiting type- Primary Diarrhea, unspecified type Gastroenteritis Other and unspecified noninfectious gastroenteritis and colitis documented in this encounter Care Teams Water Chemist Relationship Specialty Start Date End Date Lorrie Otto APRN, ALBERT [address] [place] [address] PCP - General Certified Nurse Ambulance Dispatcher 07/13/21 documented as of this encounter
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
--- OUTSIDE RECORDS SUMMARY | 2024-08-19 13:49 | XMS_ITS | Encounter Summary ---
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
--- OUTSIDE RECORDS SUMMARY | 2024-08-19 13:49 | XMS_ITS | Clinical Summary ---
Author Organization [facility] Address [address] [place] [address] Care Team Providers Care Color Printer Operator Name Role Phone Gerber Gibson MD Primary Care Provider [phone] Allergies Active Allergy Reactions Criticality Noted Date [...] AM CDT Legal Sex Female 9:14 AM COAL PIPELINE OPERATOR Gender Identity Female 08/19/2020 12:57 AM CDT [...] lb 2.3 oz) 05/30/2022 2:46 P M COAL PIPELINE OPERATOR Height 152.4 cm (5') 02/12/2022 8:16 AM [...] IgM Negative Negative 11/25/2015 8:41 AM CDT [facility] Hepatitis B Core Antibody IgM Negative Negative 11/25/2015 8:41 AM CDT [facility] Hepatitis B Surface Antigen Negative Negative 11/25/2015 8:41 AM CDT [facility] Hepatitis C Antibody Negative Negative 11/25/2015 8:41 AM CDT [facility] Blood specimen (specimen) Venipuncture / Unknown 11/23/2015 3:58 PM CDT 11/23/2015 6:39 PM CDT us Myke Ramirez MD LAB - BLOOD ORDERABLES Final Re sult [facility] [address] [place] [address], [facility] [address] [place] [address] from Last 3 Months or Most Recently Relevant to Health Maintenance Care Teams Color Printer Operator Relationship Specialty [place] [address] [place] [address] PCP - General 12/04/21
--- OUTSIDE RECORDS SUMMARY | 2024-08-19 13:49 | XMS_ITS | Encounter Summary ---
Author Organization [facility] Address [address], [place] [address] Care Team Providers Care Scenic Artist Name Role Phone Lorrie Otto APRN, CNM Primary Care Provider Encounter Details Date Type Department Care Team (Late st Contact Info) Description 09/12/2017 Scanned History External to [facility] RECORD Social History Tobacco Use Types Packs/Day [...] on filedocumented in this encounter Care Teams Scenic Artist Relationship Specialty Start Date End Date Lorrie Otto APRN, CNM [address] [place] [address] PCP - General Certified Nurse Fancy Needleworker 07/13/21 documented as of this encounter
--- OUTSIDE RECORDS SUMMARY | 2024-08-19 13:49 | XMS_ITS | Encounter Summary ---
Author Organization [facility] Address [address], [place] [address] Care Team Providers Care 1St Grade Teacher Name Role Phone OttoLorrie stewart Alex HAAS CNM Primary Care Provider Reason for Visit * Reason Comments EARACHE Patient here with bi lateral ear pain and some dizziness that comes and goes. Also C/O cough and congestion. Symptoms started Saturday. Encounter Details Date Type Department Care Team (Late st Contact Info) Description 08/10/2024 10:00 AM CDT Office Visit [facility] [address] [address] Ivet Carpio PA-C [address] [place] [address] OME (otitis media with effusion), bilateral (Primary [...] sent through Care Everywhere. * Otitis Media (Burkinan) documented in this encounter Progress Notes * [...] of rest and fluids. Tylenol for pain. [id number] medications as listed on the AVS. If [...] Wheezing documented in this encounter Care Teams 1St Grade Teacher Relationship Specialty Start Date End Date Lorrie Otto, WALDO, GYPSYM [address] [place] [address] PCP - General Certified Nurse Certified Ski Patroller 07/13/21 documented as of this encounter
--- OUTSIDE RECORDS SUMMARY | 2024-08-19 13:49 | XMS_ITS | Clinical Summary ---
Author Organization [facility] Address [address] [place] [address] Care Team Providers Care Wood Hacker Name Role Phone Gerber Gibson MD Primary Care Provider [phone] Allergies Active Allergy Reactions Criticality Noted Date [...] Department Care Team Description 07/07/2024 8:20 AM PROFESSOR OF PHYSICAL EDUCATION Office Visit [facility] [address] [place] [address] Gerber Gibson MD Medication Management; Blood Pressure (Blood pressure has been running higher for the last 6 months) 07/07/2024 Travel 06/20/2024 Refill [facility] [address] [place] [address] Gerber Gibson MD Refill Request (Ferrous Sulfate) [...] on file Legal Sex Female 1:32 PM PROFESSOR OF PHYSICAL EDUCATION Gender Identity Not on file Sexual Orientation [...] (6 lb 4.9 oz) F V[facility] (DENISA BOUCHER) Delivery Location:[facility] Comments:dickn:ATUL JO DS:O'GRACE(EAST ON LICENSE OF [facility]) Last Filed Vital Signs Vital Sign Reading Time Taken Comments Blood Pressure 144/96 07/07/2024 8:29 AM PROFESSOR OF PHYSICAL EDUCATION Pulse 76 07/07/2024 8:29 AM PROFESSOR OF PHYSICAL EDUCATION Temperature 36.5 C (97.7 F) 05/02/2024 5:25 PM PROFESSOR OF PHYSICAL EDUCATION Respiratory Rate 20 04/18/2024 5:32 PM PROFESSOR OF PHYSICAL EDUCATION Oxygen Saturation 97% 05/02/2024 5:25 PM PROFESSOR OF PHYSICAL EDUCATION Inhaled Oxygen Concentration - - Weight 91.2 kg (201 lb) 07/07/2024 8:29 AM PROFESSOR OF PHYSICAL EDUCATION Height 152.4 cm (5') 12/25/2023 9:48 AM [...] ANTI HIV 1/2 Routine 07/02/2023 9:36 AM PROFESSOR OF PHYSICAL EDUCATION Screen for STD (sexually transmitted disease) ANTI HCV Routine 07/02/2023 9:36 AM PROFESSOR OF PHYSICAL EDUCATION Screen for STD (sexually transmitted disease) HPV HIGH RISK Routine 08/15/2021 1:35 PM CDT Pap smear for cervical cancer screening from Last 3 Months or Most Recently Relevant to Health Maintenance Results * ANTI HCV (07/02/2023 9:36 AM PROFESSOR OF PHYSICAL EDUCATION) HEPATITIS C ANTIBODY Non-Reacti ve Non-React macrina 07/02/2023 6:50 PM PROFESSOR OF PHYSICAL EDUCATION [facility] Comment:Please note, per www .CDC.gov: If a patient is known to be at high risk of HCV infection, or is symptomatic, and the physician's suspicion of HCV infection is high, HCV RNA testing is often employed and is of diagnostic value, even after an initial negative anti-HCV test result. Blood BLOOD SPECIMEN / Unknown Venipuncture / Unknown 07/02/2023 9:36 AM PROFESSOR OF PHYSICAL EDUCATION 07/02/2023 9:36 AM PROFESSOR OF PHYSICAL EDUCATION Elayne Hudson MUD JACK NOZZLEMAN SEND OUTS Final Res ult Performing Organization Address [facility] Co de Phone Number [facility] [address] [place] [address], * ANTI HIV 1/2 (07/02/2023 9:36 AM PROFESSOR OF PHYSICAL EDUCATION) HIV-1/HIV-2 SCREEN Non-Reacti ve Non-Reacti ve 07/02/2023 6:58 PM PROFESSOR OF PHYSICAL EDUCATION [facility] Comment:HIV-1 p24 and HIV-1/ HIV-2 Ab Not Detected. Blood BLOOD SPECIMEN / Unknown Venipuncture / Unknown 07/02/2023 9:36 AM PROFESSOR OF PHYSICAL EDUCATION 07/02/2023 9:36 AM PROFESSOR OF PHYSICAL EDUCATION Elayne Hudson MUD JACK NOZZLEMAN SEND OUTS Final Res ult Performing Organization Address [facility] de Phone Number [facility] [address] [place] [address], * HPV HIGH RISK (08/15/2021 1:35 PM CDT) TYPE 16 Negative Negative 08/18/2021 2:12 PM CDT [facility] TYPE 18 Negative Negative 08/18/2021 2:12 PM CDT [facility] OTHER HIGH RISK TYPES Negative Negative 08/18/2021 2:12 PM CDT [facility] Other (Cervical) Non-Blood / Unknown 08/15/2021 1:35 PM CDT 08/16/2021 8:51 AM CDT Narrative [facility] - 08/18/2021 2:12 PM CDT HPV types 16, 18, 31, 33, 35, 39, 45, 51, 52, 56, 58, 59, 66 and 68 DNA were undetectable or below the pre-set threshold. Methodology: Mayte Ras 4800 HPV Test Elayne Hudson NP MICROBIOLOGY Final Res ult [facility] [address] [place] [address], [place] from Last 3 Months or Most Recently Relevant to Health Maintenance Insurance [phone] [place] [id number] [employer] [phone] [place] [phone] [facility] [place] Advance Directives * Full Code (Latest Code [...] 2:20 PM 05/18/2013 6:36 PM Care Teams Wood Hacker Relationship Specialty [place] [address] [place] [address] PCP - General 01/22/22
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
--- OUTSIDE RECORDS SUMMARY | 2024-08-19 13:49 | XMS_ITS | Encounter Summary ---
Author Organization [facility] Address [address] [address] Care Team Providers Care Whipper Beater Name Role Phone OttoLorrie stewart Alex HAAS CNM Primary Care Provider Encounter Details Date Type Department Care Team (Late st Contact Info) Description 07/28/2024 Notes/Orders [facility] [address] [place] [address] Suleman Villa MD [address] [place] [address] Routine medical exam Social History Tobacco Use [...] facility documented in this encounter Care Teams Whipper Beater Relationship Specialty Start Date End Date Lorrie Otto APRN, ALBERT [address] [place] [address] PCP - General Certified Nurse Wharf Hand 07/13/21 documented as of this encounter
--- OUTSIDE RECORDS SUMMARY | 2024-08-19 13:49 | XMS_ITS | Encounter Summary ---
Author Organization [facility] Address [address] [place] [address] Care Team Providers Care Cash Applications Analyst Name Role Phone Myke Ramirez MD Unavailable [phone] Ref-Primary, Physician Primary Care Provider Gerber Gibson MD Primary Care Provider [phone] Encounter Details Date Type Department Care Team (Late st Contact Info) Description 06/21/2021 [facility] Medical Advice [address] [address] [place] Social History Tobacco [...] AM CDT Legal Sex Female 9:14 AM QUALITY CONTROL PROJECTIONIST Gender Identity Female 08/19/2020 12:57 AM CDT Sexual Orientation Bisexual 08/19/2020 12 :57 AM CDT documented as of this encounter Plan of Treatment Not on file documented as of this encounter Visit Diagnoses Not on filedocumented in this encounter Additional Health Concerns Assessment Noted Time PHQ-9 Depression Total Score: 0 10/21/19 21 8:29 AM CDT documented as of this encounter Care Teams Cash Applications Analyst Relationship Specialty Start Date End Date No Ref-Primary, Physician PCP - General 03/18/21 12/03/21 [place] [address] [place] [address] PCP - General 12/04/21 Myke Ramirez MD [address] [place] [address] Assigned PCP 11/09/20 08/16/23 documented as of this encounter
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
--- OUTSIDE RECORDS SUMMARY | 2024-08-19 13:49 | XMS_ITS | Encounter Summary ---
Author Organization [facility] Address [address] [place] [id number] Care Team Providers Care Ring Cutter Lathe Operator Name Role Phone Annalee Horan APRN CHEMICAL INSTRUMENTATION OFFICER Primary Care Provider Myke Ramirez MD Unavailable [phone] Ref-Primary, Physician Primary Care Provider Gerber Gibson MD Primary Care Provider [phone] Encounter Details Date Type Department Care Team [...] AM CDT Legal Sex Female 9:14 AM REAL ESTATE MANAGER Gender Identity Female 08/19/2020 12:57 AM CDT Sexual Orientation Bisexual 08/19/2020 12 :57 AM CDT documented as of this encounter Plan of Treatment Not on file documented as of this encounter Visit Diagnoses Not on filedocumented in this encounter Additional Health Concerns Assessment Noted Time PHQ-9 Depression Total Score: 0 10/21/19 21 8:29 AM CDT documented as of this encounter Care Teams Ring Cutter Lathe Operator Relationship Specialty Start Date End Date Annalee Horan APRN CNP PCP - General 07/15/19 03/17/21 No Ref-Primary, Physician PCP - General 03/18/21 12/03/21 [place] [address] [place] [address] PCP - General 12/04/21 Myke Ramirez MD [address] [place] [address] Assigned PCP 11/09/20 08/16/23 documented as of this encounter
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
[2024-08-19 13:59] LABS: Slide Review Reflex No
[2024-08-19 14:06] LABS: Albumin* 3.8 g/dL (3.3-5.0); Chloride* 106 mmol/L (96-114); Sodium* 134 mmol/L (135-149)
[2024-08-19 14:07] LABS: Potassium* 4.1 mmol/L (3.6-5.1)
[2024-08-19 14:09] LABS: Alanine Aminotransferase* 66 U/L (4-35); Aspartate Amino Transferase* 43 U/L (12-35); Blood Urea Nitrogen* 6 mg/dL (5-24); Creatinine* 0.4 mg/dL (0.5-1.5); Est. Creatinine Clearance* 142.35; Estimated Glomerular Filt Rate 133 ml/min
[2024-08-19 14:10] LABS: Alkaline Phosphatase* 72 U/L (40-150); Anion Gap 12 mEq/L (7-15); Bilirubin Total* 0.9 mg/dL (0.1-1.5); Calcium* 8.4 mg/dL (8.4-10.6); Carbon Dioxide* 16 mmol/L (20-32); Glucose* 90 mg/dL (60-115); Lipase* 156 U/L (23-300); Total Protein* 7.3 g/dL (6.0-8.3)
[2024-08-19 14:13] LABS: C Reactive Protein* 3.9 mg/dL (0.5-1.0)
[2024-08-19] MEDS: HYDROmorphone 0.5 mg/0.5 ml inj IVP (14:32)
[2024-08-19] MEDS: PANTOPRAZOLE SODIUM 40 MG INJ 80 MG IVP (15:07)
[2024-08-19] MEDS: ACETAMINOPHEN 325 MG TABLET 650 MG PO ×2 (16:18→20:31)
[2024-08-19] MEDS: MORPHINE 2 MG/ML inj IVP ×3 (16:19→23:46)
[2024-08-19] MEDS: LACTATED RINGERS 1000 ML 1,000 ML 125 ML IV ×2 (16:19→23:49)
--- NOTE | 2024-08-19 18:04 | P.IMHP_ITS ---
Assessment and Plan Assessment and plan (1) Duodenitis: Problem comment: CT shows inflammatory changes. Initiate intravenous PPI, surgical consult. IV fluids and IV pain medications. Status: Acute (2) Pancreatitis: Problem comment: Inflammatory changes most likely due to duodenitis rather than primary pancreatitis Status: Acute Total Time Spent Total Time Spent: Total time spent is 65 minutes in coordination of care, review of outside records, discussion with patient and other providers ongoing evaluation management of abdominal pain and duodenitis Hospitalist- H&P: HPI History of Present Illness Date Seen: 08/19/24 Chief complaint: Abdominal pain Narrative: Miriam Murphy is a 33 year old female admitted through the emergency department with severe epigastric abdominal pain for the last day. She has a past history of cholecystectomy, GERD, depression, anxiety, PTSD, asthma, smoking. She was in her usual state of health until yesterday while she was swimming she had onset of severe epigastric pain. She has not had vomiting but has had severe nausea. She has been eating very little. She has not had a bowel movement since the abdominal pain started but bowel function was normal prior to that. She has felt some fever as well. She denies previous symptoms of pain similar to this. She thinks the pain is radiating to her low back as well. About a week ago she was having trouble with her asthma and took a 5 day course of prednisone. She has been off of that for a few days. Her breathing is better. She normally takes omeprazole 40 mg daily for her GERD. Previous cholecystectomy. No history of gastrointestinal bleeding. She is not on anticoagulation. She occasionally takes ibuprofen but has not had any recently until yesterday after her pain started she took some ibuprofen. She rarely drinks alcohol, most recently about 5 days ago. She smokes a few cigarettes a day. She reports no bowel problems though her records indicate that she did have an episode of diarrhea and vomiting 3 weeks ago. No urinary symptoms. Review of Systems Narrative: Review of systems is unremarkable except as noted above [facility] Medical History (Updated 08/19/24 @ 18:17 by Myke Verma MD) Vitamin D deficiency ?E55.9 - Vitamin D deficiency, unspecified (ICD-10) Asthma ?J45.909 - Unspecified asthma, uncomplicated (ICD-10) History of methamphetamine abuse ?F15.11 - Other stimulant abuse, in remission (ICD-10) Obesity ?E66.9 - Obesity, unspecified (ICD-10) Hypertension ?I10 - Essential (primary) hypertension (ICD-10) Tobacco abuse disorder ?Z72.0 - Tobacco use (ICD-10) GERD (gastroesophageal reflux disease) ?K21.9 - Gastro-esophageal reflux disease without esophagitis (ICD-10) ADD (attention deficit disorder) ?F98.8 - Other specified behavioral and emotional disorders with onset usually occurring in childhood and adolescence (ICD-10) Restless legs ?G25.81 - Restless legs syndrome (ICD-10) PTSD (post-traumatic stress disorder) ?F43.10 - Post-traumatic stress disorder, unspecified (ICD-10) Insomnia ?G47.00 - Insomnia, unspecified (ICD-10) Generalized anxiety disorder ?F41.1 - Generalized anxiety disorder (ICD-10) Surgical History (Updated 08/19/24 @ 18:12 by Myke Verma MD) History of cholecystectomy ?Z90.49 - Acquired absence of other specified parts of digestive tract (ICD- 10) Family History (Updated 08/19/24 @ 18:13 by Myke Verma MD) Mother Alcohol dependence Diabetes Brother High blood pressure Father Clotting disorder Social History (Updated 08/19/24 @ 18:14 by Myke Verma MD) Narrative: She lives in [place] with her 11-year-old daughter. Not currently working outside the home. She smokes a few cigarettes every day. She rarely drinks alcohol. She does not use recreational drugs. What is your current living situation?: I presently have a place to live Problems where you live: no known problems Problems where you live details: N/A In the past 12 months, utilities in danger of being shut off: no In past 12 months, lack of transportation kept you from medical appts, meetings, work, or getting things needed for daily living: no In the past 12 mos, have been you worried that your food would run out before you had money to buy more?: never true In the past 12 mos, the food you bought just didn't last and you didn't have money to buy more?: never true Highest level of school completed/degree received: high school graduate Smoking Status: Current every day smoker What tobacco products do you use: cigarettes Smoking packs per day: 0.5 Smoking cigarettes per day: 10.0 Years smoked: 18 Smoking pack-years: 9.00 Do you use any of these nicotine containing products: None Second hand tobacco smoke exposure: Yes How often do you have a drink containing alcohol: monthly or less How often do you have six or more drinks on one occasion: Never AUDIT-C Alcohol total score: 1 Non-prescribed substance use: denies use Caffeine: Yes (4 cups daily) How often does anyone, including family, friends and others, physically hurt you : never How often does anyone, including family, friends and others, insult or talk down to you: never How often does anyone, including family, friends and others, threaten you with harm: never How often does anyone, including family, friends and others, scream or curse at you: never service: No Meds Home Medications and Allergies Home Medications ?Medication ?Instructions ?Recorded ?Confirmed ?Type albuterol sulfate 2.5 mg/3 mL 2.5 mg continuous nebulization Q4H 06/04/23 08/19/24 History (0.083 %) solution for nebulization PRN albuterol sulfate 90 mcg/actuation 2 puff inhalation Q4H PRN wheezing 06/04/23 08/19/24 History aerosol inhaler (Ventolin HFA) cetirizine 10 mg tablet 10 mg PO DAILY 06/04/23 08/19/24 History clonidine HCl 0.2 mg tablet 0.2 mg PO HS 06/04/23 08/19/24 History dextroamphetamine-amphetamine 20 1 tab PO DAILY 06/04/23 08/19/24 History mg tablet etonogestrel 0.12 mg-ethinyl 1 vag ring vaginal Q21D 06/04/23 08/19/24 History estradiol 0.015 mg/24 hr vaginal ring (EluRyng) ferrous sulfate 325 mg (65 mg 325 mg PO HS 06/04/23 08/19/24 History iron) tablet,delayed release gabapentin 300 mg capsule 600 - 900 mg PO BID 06/04/23 08/19/24 History omeprazole 40 mg capsule,delayed 40 mg PO DAILY 06/04/23 08/19/24 History release quetiapine 100 mg tablet 100 mg PO HS 06/04/23 08/19/24 History aripiprazole 2 mg tablet 2 mg PO DAILY 08/19/24 08/19/24 History cholecalciferol (vitamin D3) 25 75 mcg PO DAILY 08/19/24 08/19/24 History mcg (1,000 unit) capsule lisinopril 10 mg tablet 10 mg PO DAILY 08/19/24 08/19/24 History nicotine 14 mg/24 hr daily 1 patch topical DAILY 08/19/24 08/19/24 History transdermal patch Allergies Allergy/AdvReac Type Severity Reaction Status Date / Time ciprofloxacin Allergy Severe Anaphylaxis Verified 08/19/24 14:12 hydrocodone Allergy Intermediate Unknown Verified 08/19/24 14:12 Exam Narrative: Exam Narrative: She is alert and appears in mild distress from her abdominal pain. She points to the epigastrium as the location of the pain. Eyes normal. Oropharynx with small airway. Neck is supple without mass or adenopathy. Respirations with diminished breath sounds but otherwise clear without wheezing. No consolidation. Cardiovascular: S1, S2, regular rate and rhythm. Abdomen: Bowel sounds active. Abdomen is soft with mild to moderate epigastric tenderness and mild diffuse tenderness. No peritonitis. No mass. No focal tenderness. External genitalia normal. Extremities normal. Good peripheral pulses. Minimal edema. Good capillary refill. No rash. Const: Vital Signs, click to edit/add: Vital Signs - 24 hr 08/19/24 13:05 08/19/24 13:18 08/19/24 13:30 Temperature 100.5 F H Pulse Rate 122 H 117 H Pulse Rate [Pulse Oximeter] 111 H Respiratory Rate 22 Blood Pressure Blood Pressure [Ri ght Arm] Blood Pressure [Ri ght Upper Arm] 164/124 H Pulse Oximetry 96 97 97 Oxygen Delivery Me thod Room Air 08/19/24 13:33 08/19/24 13:35 08/19/24 13:45 Temperature Pulse Rate 109 H 111 H 100 Pulse Rate [Pulse Oximeter] Respiratory Rate 16 Blood Pressure 128/80 128/80 Blood Pressure [Ri ght Arm] Blood Pressure [Ri ght Upper Arm] Pulse Oximetry 95 96 97 Oxygen Delivery Me thod 08/19/24 14:12 08/19/24 14:15 08/19/24 14:30 Temperature Pulse Rate 108 H 105 H 107 H Pulse Rate [Pulse Oximeter] Respiratory Rate Blood Pressure Blood Pressure [Ri ght Arm] Blood Pressure [Ri ght Upper Arm] Pulse Oximetry 96 98 96 Oxygen Delivery Me thod 08/19/24 14:31 08/19/24 14:32 08/19/24 14:45 Temperature Pulse Rate 107 H 108 H 110 H Pulse Rate [Pulse Oximeter] Respiratory Rate 16 Blood Pressure 125/63 Blood Pressure [Ri ght Arm] Blood Pressure [Ri ght Upper Arm] Pulse Oximetry 96 98 95 Oxygen Delivery Me thod 08/19/24 15:00 08/19/24 15:01 08/19/24 15:15 Temperature Pulse Rate 114 H 116 H 114 H Pulse Rate [Pulse Oximeter] Respiratory Rate Blood Pressure 110/68 Blood Pressure [Ri ght Arm] Blood Pressure [Ri ght Upper Arm] Pulse Oximetry 95 94 96 Oxygen Delivery Me thod 08/19/24 15:43 08/19/24 16:18 08/19/24 17:58 Temperature 100.5 F H 100.4 F H 97.7 F Pulse Rate Pulse Rate [Pulse Oximeter] 107 H Respiratory Rate 16 Blood Pressure Blood Pressure [Ri ght Arm] 125/63 Blood Pressure [Ri ght Upper Arm] Pulse Oximetry 96 Oxygen Delivery Me thod Room Air 08/19/24 17:59 Temperature Pulse Rate Pulse Rate [Pulse Oximeter] Respiratory Rate 18 Blood Pressure Blood Pressure [Ri ght Arm] Blood Pressure [Ri ght Upper Arm] Pulse Oximetry Oxygen Delivery Me thod Room Air Documenting provider has reviewed patient's vital signs: yes Hospitalist - H&P: Result Labs Labs: Short CBC 08/19/24 Range/Units 13:28 WBC 19.23 H (4.50-11.00) K/uL Hgb 13.4 (12.0-16.0) gm/dL Hct 37.6 (33.0-51.0) % Plt Count 307 (140-440) K/uL BMP 08/19/24 13:28 Sodium 134 L Potassium 4.1 Chloride 106 Carbon Dioxide 16 L BUN 6 Creatinine 0.4 L Glucose 90 Calcium 8.4 Liver Function 08/19/24 Range/Units 13:28 Total Bilirubin 0.9 (0.1-1.5) mg/dL AST 43 H (12-35) U/L ALT 66 H (4-35) U/L Alkaline Phosphatase 72 (40-150) U/L Albumin 3.8 (3.3-5.0) g/dL Imaging CT scan - abdomen: Radiologist's impression: INDICATION: Upper abdominal pain. TECHNIQUE: CT abdomen and pelvis acquired with 100 mL Isovue 370 IV contrast. COMPARISON: None available. FINDINGS: Lower chest: No focal consolidation. Liver: No suspicious focal hepatic lesion. Right hepatic dome excluded from field of view. Gallbladder and bile ducts: Post cholecystectomy. Pancreas: Inflammatory changes abutting the pancreatic uncinate process, head, and body. Relatively homogeneous enhancement of the pancreatic parenchyma. No pancreatic duct dilation. Spleen: Unremarkable. Adrenal glands: Unremarkable. Kidneys: Kidneys enhance symmetrically, without hydronephrosis. Prominent lobulation of the right kidney. Retroperitoneum: No lymphadenopathy. Bowel and mesentery: Scattered colonic diverticulosis, without evidence of acute diverticulitis. Extensive inflammation surrounding the duodenum. No pneumoperitoneum. Bladder: Unremarkable for degree of distention. Reproductive organs: Unremarkable. Pelvic lymph nodes: No lymphadenopathy. Vessels: Unremarkable. Abdominal wall: No acute abdominal wall abnormality. Bones: No suspicious/aggressive focal osseous lesion. IMPRESSION: Extensive inflammatory changes abutting the pancreas as well as the duodenum. This may reflect acute pancreatitis with reactive duodenitis, or primary duodenitis with reactive pancreatitis. Recommend correlation with serum lipase/amylase.
[2024-08-19 18:38] LABS: Appearance Urine Clear (Clear); Bilirubin Urine Negative (Negative); Blood Urine Negative (Negative); Color Urine Yellow (Yellow); Glucose Urine Negative (Negative); Ketones Urine Negative (Negative); Leukocyte Esterase Urine Negative (Negative); Nitrite Urine Negative (Negative); Protein Urine Negative (Negative); Urobilinogen Urine 0.2 (0.2-1.0); pH Urine 5.5 (5.0-8.5)
[2024-08-19 18:53] LABS: Ur HCG Qualitative* Negative (Negative)
[2024-08-19 19:03] LABS: Bacteria Urine Few; RBC Urine 0-2 (0-2); Squamous Epithelial Cell Urine Few (None-Few); WBC Urine 0-2 (0-5)
--- NOTE | 2024-08-19 19:34 | PC.NURSE ---
End of shift-- Cooperative, alert and oriented patient was admitted to Med-Surg via wheelchair at approximately 1530. VSS and highest temp this shift 100.5F. She was given Tylenol and temp improved to 97.7F. She c/o abdominal pain which she rated 6-7 out of 10 and was given Morphine with stated relief. Pt ate small amounts of clear liquids, but did c/o increased pain following. LS CTA. She was up to the BR independently and tolerated it well. Report to oncoming shift.
[2024-08-19] MEDS: QUETIAPINE 100 MG TABLET PO (20:31)
[2024-08-19] MEDS: GABAPENTIN 300 MG CAPSULE 900 MG PO (20:31)
[2024-08-19] MEDS: PANTOPRAZOLE SODIUM 40 MG INJ IVP (20:32)
[2024-08-19] MEDS: cloNIDine HCL 0.1 MG TABLET 0.2 MG PO (20:32)
[2024-08-19] MEDS: SODIUM CHLORIDE 0.9 % (FLUSH) 10 ML SYRINGE 5 ML IVF (20:32)
[2024-08-20] VITALS (19 sets, daily range): BP systolic 88–135; BP diastolic 57–86; PULSE 92–111; RESP 16–20; TEMP 36.7–38.4; O2SAT 92–98
[2024-08-20] MEDS: MORPHINE 2 MG/ML inj IVP ×11 (02:06→21:33)
[2024-08-20] MEDS: ACETAMINOPHEN 325 MG TABLET 650 MG PO ×4 (02:14→20:11)
[2024-08-20] MEDS: KETOROLAC 30 MG/ML inj IVP (04:22)
--- NOTE | 2024-08-20 06:43 | PC.NURSE ---
End of shift [id number]: Pt alert, orientated and cooperative throughout shift. Reporting pain in upper middle abdomen 5-10/10. Pt in tears when ambulating to the bathroom d/t pain. Febrile overnight. Tylenol given for temp of 100.6. on reassessment temp elevated more. MD contacted. See orders. HR in low 100s overnight. VS otherwise stable. Abdomen soft and tender on palpation. BS active. Pt denies passing gas. Tolerating clear liquids denying any n/v. Up at daja in room.
[2024-08-20 07:04] LABS: Basophils Percent Auto 0.2 % (0.0-3.0); Eosinophils Percent Auto 1.8 % (0.0-7.0); Hematocrit 30.9 % (33.0-51.0); Hemoglobin* 10.7 gm/dL (12.0-16.0); Lymphocytes Percent Auto 15.7 % (20-44); Mean Corpuscular HGB Conc 35 gm/dL (32-36); Mean Corpuscular Hemoglobin 29 pg (26-34); Mean Corpuscular Volume 85 fL (80-100); Monocytes Percent Auto 8.8 % (0.0-11.0); Neutrophils Percent Auto 72.5 % (42.0-72.0); Platelet Count* 250 K/uL (140-440); Red Blood Count 3.64 m/uL (4.00-5.20); White Blood Count* 17.44 K/uL (4.50-11.00)
[2024-08-20 07:11] LABS: Chloride* 105 mmol/L (96-114); Sodium* 135 mmol/L (135-149)
[2024-08-20 07:12] LABS: Potassium* 3.6 mmol/L (3.6-5.1)
[2024-08-20 07:15] LABS: Anion Gap 7 mEq/L (7-15); Blood Urea Nitrogen* 9 mg/dL (5-24); Carbon Dioxide* 23 mmol/L (20-32); Creatinine* 0.6 mg/dL (0.5-1.5); Estimated Glomerular Filt Rate 121 ml/min; Glucose* 99 mg/dL (60-115); Slide Review Reflex No
--- NOTE | 2024-08-20 08:22 | P.IMPN_ITS ---
Assessment and Plan Assessment and plan (1) Duodenitis: Problem comment: CT shows inflammatory changes. No pneumoperitoneum. Patient states that she takes NSAIDs almost every day for years. She denies any hx of blood in the stool or any history of black stools or melena and no history of peptic ulcer disease, no history of previous upper endoscopies or hx of H pylori infection per the patient. NPO Cont intravenous PPI IV fluids and IV pain medications. Gen Sx consulted. Will discuss the need for upper endoscopy. Status: Acute (2) Pancreatitis: Problem comment: Inflammatory changes most likely due to duodenitis rather than primary pancreatitis Status: Suspected (3) Leukocytosis: Problem comment: Down trending Urinalysis is negative Likely reactive Continue trending Status: Acute (4) Transaminitis: Problem comment: Mild, chronic Patient will need outpatient follow-up Status: Chronic (5) GERD (gastroesophageal reflux disease): Problem comment: On omeprazole at home Status: Acute (6) Hypertension: Problem comment: Resume lisinopril Status: Acute (7) Asthma: Problem comment: Resume home inhalers Status: Acute (8) Obesity: Status: Acute (9) Tobacco abuse disorder: Problem comment: Ordered nicotine patch Status: Chronic (10) History of methamphetamine abuse: Status: Acute (11) Generalized anxiety disorder: Status: Acute Total Time Spent Total Time Spent: Today I spent 50 minutes seeing the patient, reviewing Expanse and EPIC notes/diagnostics, discussing the care plan with our care time that includes social work, PT/OT, pharmacy, RT, correction and documenting my impressions and plan in the medical record. Subjective Date Seen: 08/20/24 Interval history: Patient was seen and examined at bedside. She states this she still having abdominal pain that is 7/10 in pain score. Improved nausea. Patient states that her last bowel movement was maybe 2 days ago but she is not sure. She denies any hx of blood in the stool or any history of black stools or melena and no history of peptic ulcer disease, no history of previous upper endoscopies or hx of H pylori infection per the patient. As she takes omeprazole for GERD. Patient states that she takes NSAIDs almost every day for years. Exam Narrative: Exam Narrative: Physical exam GENERAL: Anxious. HEAD AND NECK: Atraumatic, normocephalic CARDIOVASCULAR: RRR. Normal S1, S2. No murmurs. RESPIRATORY: Clear to auscultation B/L. Good air entry B/L. No wheezes or rhonchi. GASTROINTESTINAL: Obese, diffuse tenderness to palpation. No rigidity or guarding. NEUROLOGY: Alert, awake, oriented X 3. Normal speech. PSYCH: Anxious. Const: Vital Signs, click to edit/add: Vital Signs - 24 hr 08/19/24 13:05 08/19/24 13:18 08/19/24 13:30 Temperature 100.5 F H Pulse Rate 122 H 117 H Pulse Rate [Pulse Oximeter] 111 H Respiratory Rate 22 Blood Pressure Blood Pressure [Ri ght Arm] Blood Pressure [Ri ght Upper Arm] 164/124 H Pulse Oximetry 96 97 97 Oxygen Delivery Me thod Room Air 08/19/24 13:33 08/19/24 13:35 08/19/24 13:45 Temperature Pulse Rate 109 H 111 H 100 Pulse Rate [Pulse Oximeter] Respiratory Rate 16 Blood Pressure 128/80 128/80 Blood Pressure [Ri ght Arm] Blood Pressure [Ri ght Upper Arm] Pulse Oximetry 95 96 97 Oxygen Delivery Me thod 08/19/24 14:12 08/19/24 14:15 08/19/24 14:30 Temperature Pulse Rate 108 H 105 H 107 H Pulse Rate [Pulse Oximeter] Respiratory Rate Blood Pressure Blood Pressure [Ri ght Arm] Blood Pressure [Ri ght Upper Arm] Pulse Oximetry 96 98 96 Oxygen Delivery Me thod 08/19/24 14:31 08/19/24 14:32 08/19/24 14:45 Temperature Pulse Rate 107 H 108 H 110 H Pulse Rate [Pulse Oximeter] Respiratory Rate 16 Blood Pressure 125/63 Blood Pressure [Ri ght Arm] Blood Pressure [Ri ght Upper Arm] Pulse Oximetry 96 98 95 Oxygen Delivery Me thod 08/19/24 15:00 08/19/24 15:01 08/19/24 15:15 Temperature Pulse Rate 114 H 116 H 114 H Pulse Rate [Pulse Oximeter] Respiratory Rate Blood Pressure 110/68 Blood Pressure [Ri ght Arm] Blood Pressure [Ri ght Upper Arm] Pulse Oximetry 95 94 96 Oxygen Delivery Me thod 08/19/24 15:43 08/19/24 16:18 08/19/24 17:58 Temperature 100.5 F H 100.4 F H 97.7 F Pulse Rate Pulse Rate [Pulse Oximeter] 107 H Respiratory Rate 16 Blood Pressure Blood Pressure [Ri ght Arm] 125/63 Blood Pressure [Ri ght Upper Arm] Pulse Oximetry 96 Oxygen Delivery Me thod Room Air 08/19/24 17:59 08/19/24 19:38 08/19/24 22:32 Temperature 99.0 F 97.0 F L Pulse Rate Pulse Rate [Pulse Oximeter] 107 H 97 Respiratory Rate 18 18 16 Blood Pressure Blood Pressure [Ri ght Arm] 125/76 98/53 L Blood Pressure [Ri ght Upper Arm] Pulse Oximetry 95 94 Oxygen Delivery Me thod Room Air Room Air Room Air 08/20/24 02:14 08/20/24 02:37 08/20/24 03:23 Temperature 100.6 F H 100.6 F H 101.2 F H Pulse Rate Pulse Rate [Pulse Oximeter] 107 H Respiratory Rate 18 Blood Pressure Blood Pressure [Ri ght Arm] 135/86 Blood Pressure [Ri ght Upper Arm] Pulse Oximetry 97 Oxygen Delivery Mi thod Room Air 08/20/24 04:22 08/20/24 04:27 08/20/24 04:58 Temperature 101.2 F H 99.2 F 98.1 F Pulse Rate Pulse Rate [Pulse Oximeter] Respiratory Rate Blood Pressure Blood Pressure [Ri ght Arm] Blood Pressure [Ri ght Upper Arm] Pulse Oximetry Oxygen Delivery Mi thod 08/20/24 06:44 08/20/24 07:00 08/20/24 07:55 Temperature 98.6 F 98.6 F Pulse Rate Pulse Rate [Pulse Oximeter] 92 92 Respiratory Rate 20 18 Blood Pressure Blood Pressure [Ri ght Arm] Blood Pressure [Ri ght Upper Arm] Pulse Oximetry 96 Oxygen Delivery Mi thod Room Air Labs Labs: Laboratory Results - last 24 hr 08/19/24 08/19/24 08/19/24 13:28 18:03 18:04 WBC 19.23 H RBC 4.47 Hgb 13.4 Hct 37.6 MCV 84 MCH 30 MCHC 36 RDW Coeff of [place] 12.4 Plt Count 307 Neut % (Auto) 75.0 H Lymph % (Auto) 14.6 L Armstrong % (Auto) 7.3 Eos % (Auto) 1.9 Baso % (Auto) 0.1 Neut # (Auto) 14.40 H Lymph # (Auto) 2.80 Armstrong # (Auto) 1.40 H Eos # (Auto) 0.40 Baso # (Auto) 0.00 Abs Immat Gran (auto) 0.20 Imm/Tot Granulo (auto) 1.1 Sodium 134 L Potassium 4.1 Chloride 106 Carbon Dioxide 16 L Anion Gap 12 BUN 6 Creatinine 0.4 L Estimated Creat Clear 142.35 Estimated GFR 133 Glucose 90 Lactate 1.6 Calcium 8.4 Total Bilirubin 0.9 AST 43 H ALT 66 H Alkaline Phosphatase 72 C-Reactive Protein 3.9 H Total Protein 7.3 Albumin 3.8 Lipase 156 Urine Color Yellow Urine Appearance Clear Urine pH 5.5 Ur Specific Radiant 1.010 Urine Protein Negative Urine Glucose (UA) Negative Urine Ketones Negative Urine Blood Negative Urine Nitrite Negative Urine Bilirubin Negative Urine Urobilinogen 0.2 Ur Leukocyte Esterase Negative Urine RBC 0-2 Urine WBC 0-2 Ur Squamous Epith Cells Few Urine Bacteria Few A Urine HCG, Qual Negative 08/20/24 06:23 WBC 17.44 H RBC 3.64 L Hgb 10.7 L Hct 30.9 L MCV 85 MCH 29 MCHC 35 RDW Coeff of [place] 13.0 Plt Count 250 Neut % (Auto) 72.5 H Lymph % (Auto) 15.7 L Armstrong % (Auto) 8.8 Eos % (Auto) 1.8 Baso % (Auto) 0.2 Neut # (Auto) 12.60 H Lymph # (Auto) 2.70 [place] # (Auto) 1.50 H Eos # (Auto) 0.30 Baso # (Auto) 0.00 Abs Immat Gran (auto) 0.20 Imm/Tot Granulo (auto) 1.0 Sodium 135 Potassium 3.6 Chloride 105 Carbon Dioxide 23 Anion Gap 7 BUN 9 Creatinine 0.6 Estimated Creat Clear 94.90 Estimated GFR 121 Glucose 99 Lactate Calcium 8.0 L Total Bilirubin AST ALT Alkaline Phosphatase C-Reactive Protein Total Protein Albumin Lipase Urine Color Urine Appearance Urine pH Ur Specific Radiant Urine Protein Urine Glucose (UA) Urine Ketones Urine Blood Urine Nitrite Urine Bilirubin Urine Urobilinogen Ur Leukocyte Esterase Urine RBC Urine WBC Ur Squamous Epith Cells Urine Bacteria Urine HCG, Qual Imaging CT scan - abdomen: Radiologist's impression: INDICATION: Upper abdominal pain. TECHNIQUE: CT abdomen and pelvis acquired with 100 mL Isovue 370 IV contrast. COMPARISON: None available. FINDINGS: Lower chest: No focal consolidation. Liver: No suspicious focal hepatic lesion. Right hepatic dome excluded from field of view. Gallbladder and bile ducts: Post cholecystectomy. Pancreas: Inflammatory changes abutting the pancreatic uncinate process, head, and body. Relatively homogeneous enhancement of the pancreatic parenchyma. No pancreatic duct dilation. Spleen: Unremarkable. Adrenal glands: Unremarkable. Kidneys: Kidneys enhance symmetrically, without hydronephrosis. Prominent lobulation of the right kidney. Retroperitoneum: No lymphadenopathy. Bowel and mesentery: Scattered colonic diverticulosis, without evidence of acute diverticulitis. Extensive inflammation surrounding the duodenum. No pneumoperitoneum. Bladder: Unremarkable for degree of distention. Reproductive organs: Unremarkable. Pelvic lymph nodes: No lymphadenopathy. Vessels: Unremarkable. Abdominal wall: No acute abdominal wall abnormality. Bones: No suspicious/aggressive focal osseous lesion. IMPRESSION: Extensive inflammatory changes abutting the pancreas as well as the duodenum. This may reflect acute pancreatitis with reactive duodenitis, or primary duodenitis with reactive pancreatitis. Recommend correlation with serum lipase/amylase. Please note that all CT scans at this facility use dose modulation, iterative reconstruction, and/or weight-based dosing when appropriate to reduce radiation dose to as low as reasonably achievable. Dictated by Agatha Mills MD @ 08/19/2024 2:34:41 PM
[2024-08-20 08:50] LABS: C Reactive Protein* 18.5 mg/dL (0.5-1.0)
[2024-08-20] MEDS: LACTATED RINGERS 1000 ML 1,000 ML 125 ML IV ×2 (09:37→20:51)
[2024-08-20] MEDS: GABAPENTIN 600 MG TABLET PO (09:37)
[2024-08-20] MEDS: OMEPRAZOLE 20 MG CAPSULE DR 40 MG PO (09:38)
[2024-08-20] MEDS: CETIRIZINE HCL 10 MG TABLET PO (09:38)
[2024-08-20] MEDS: SODIUM CHLORIDE 0.9 % (FLUSH) 10 ML SYRINGE 5 ML IVF ×2 (09:38→20:47)
[2024-08-20] MEDS: PANTOPRAZOLE SODIUM 40 MG INJ IVP ×2 (09:38→20:47)
[2024-08-20] MEDS: NICOTINE 14 mg PATCH 1 PATCH TOPICAL (09:39)
[2024-08-20] MEDS: lisinopriL 10 MG TABLET PO (09:39)
[2024-08-20] MEDS: ARIPiprazole 10 MG TABLET 2.5 MG PO (10:19)
--- NOTE | 2024-08-20 10:55 | P.GSCN_ITS ---
History of Present Illness Consult details Date Seen: 08/20/24 Consult date: 08/20/24 Narrative: Patient presented to the emergency department yesterday for severe abdominal pain in the middle of her abdomen. She says that the pain started about 2-3 days ago. He continue to increase in intensity, which is what brought her in. She has never had pain like this before. She does report some associated nausea, no emesis. Denies any diarrhea. She has been having fevers since admission. Her past history is significant for GERD, asthma, smoking and cholecystectomy. She did have an asthma flare up last week and took a course of prednisone. She does take ibuprofen on a daily basis. She denies frequent alcohol use, but does admit to binge drinking on Saturday. She is unsure how much alcohol she had, but reports ?drinking a lot of fireball?. No history of ulcer disease. Review of Systems Status of ROS: Reports: 10 or more systems reviewed and unremarkable except as noted in History and below [facility] Medical History (Updated 08/20/24 @ 10:27 by Ivett Knox MD) Transaminitis ?R74.01 - Elevation of levels of liver transaminase levels (ICD-10) Vitamin D deficiency ?E55.9 - Vitamin D deficiency, unspecified (ICD-10) Asthma ?J45.909 - Unspecified asthma, uncomplicated (ICD-10) History of methamphetamine abuse ?F15.11 - Other stimulant abuse, in remission (ICD-10) Obesity ?E66.9 - Obesity, unspecified (ICD-10) Hypertension ?I10 - Essential (primary) hypertension (ICD-10) Tobacco abuse disorder ?Z72.0 - Tobacco use (ICD-10) GERD (gastroesophageal reflux disease) ?K21.9 - Gastro-esophageal reflux disease without esophagitis (ICD-10) ADD (attention deficit disorder) ?F98.8 - Other specified behavioral and emotional disorders with onset usually occurring in childhood and adolescence (ICD-10) Restless legs ?G25.81 - Restless legs syndrome (ICD-10) PTSD (post-traumatic stress disorder) ?F43.10 - Post-traumatic stress disorder, unspecified (ICD-10) Insomnia ?G47.00 - Insomnia, unspecified (ICD-10) Generalized anxiety disorder ?F41.1 - Generalized anxiety disorder (ICD-10) Surgical History (Updated 08/19/24 @ 18:12 by Myke Verma MD) History of cholecystectomy ?Z90.49 - Acquired absence of other specified parts of digestive tract (ICD- 10) Family History (Updated 08/19/24 @ 18:13 by Myke Verma MD) Mother Alcohol dependence Diabetes Brother High blood pressure Father Clotting disorder Social History (Updated 08/19/24 @ 18:14 by Myke Verma MD) Narrative: She lives in [place] with her 11-year-old daughter. Not currently working outside the home. She smokes a few cigarettes every day. She rarely drinks alcohol. She does not use recreational drugs. What is your current living situation?: I presently have a place to live Problems where you live: no known problems Problems where you live details: N/A In the past 12 months, utilities in danger of being shut off: no In past 12 months, lack of transportation kept you from medical appts, meetings, work, or getting things needed for daily living: no In the past 12 mos, have been you worried that your food would run out before you had money to buy more?: never true In the past 12 mos, the food you bought just didn't last and you didn't have money to buy more?: never true Highest level of school completed/degree received: high school graduate Smoking Status: Current every day smoker What tobacco products do you use: cigarettes Smoking packs per day: 0.5 Smoking cigarettes per day: 10.0 Years smoked: 18 Smoking pack-years: 9.00 Do you use any of these nicotine containing products: None Second hand tobacco smoke exposure: Yes How often do you have a drink containing alcohol: monthly or less How often do you have six or more drinks on one occasion: Never AUDIT-C Alcohol total score: 1 Non-prescribed substance use: denies use Caffeine: Yes (4 cups daily) How often does anyone, including family, friends and others, physically hurt you : never How often does anyone, including family, friends and others, insult or talk down to you: never How often does anyone, including family, friends and others, threaten you with harm: never How often does anyone, including family, friends and others, scream or curse at you: never service: No Meds Home Medications and Allergies Home Medications ?Medication ?Instructions ?Recorded ?Confirmed ?Type albuterol sulfate 2.5 mg/3 mL 2.5 mg continuous nebulization Q4H 06/04/23 08/19/24 History (0.083 %) solution for nebulization PRN albuterol sulfate 90 mcg/actuation 2 puff inhalation Q4H PRN wheezing 06/04/23 08/19/24 History aerosol inhaler (Ventolin HFA) cetirizine 10 mg tablet 10 mg PO DAILY 06/04/23 08/19/24 History clonidine HCl 0.2 mg tablet 0.2 mg PO HS 06/04/23 08/19/24 History dextroamphetamine-amphetamine 20 1 tab PO DAILY 06/04/23 08/19/24 History mg tablet etonogestrel 0.12 mg-ethinyl 1 vag ring vaginal Q21D 06/04/23 08/19/24 History estradiol 0.015 mg/24 hr vaginal ring (EluRyng) ferrous sulfate 325 mg (65 mg 325 mg PO HS 06/04/23 08/19/24 History iron) tablet,delayed release gabapentin 300 mg capsule 600 - 900 mg PO BID 06/04/23 08/19/24 History omeprazole 40 mg capsule,delayed 40 mg PO DAILY 06/04/23 08/19/24 History release quetiapine 100 mg tablet 100 mg PO HS 06/04/23 08/19/24 History aripiprazole 2 mg tablet 2 mg PO DAILY 08/19/24 08/19/24 History cholecalciferol (vitamin D3) 25 75 mcg PO DAILY 08/19/24 08/19/24 History mcg (1,000 unit) capsule lisinopril 10 mg tablet 10 mg PO DAILY 08/19/24 08/19/24 History nicotine 14 mg/24 hr daily 1 patch topical DAILY 08/19/24 08/19/24 History transdermal patch Allergies Allergy/AdvReac Type Severity Reaction Status Date / Time ciprofloxacin Allergy Severe Anaphylaxis Verified 08/19/24 14:12 hydrocodone Allergy Intermediate Unknown Verified 08/19/24 14:12 Exam Narrative: Exam Narrative: General: Alert and oriented, no acute distress. Nontoxic Respiratory: Equal breath rise bilaterally, maintained on room air CV: Well perfused Abdomen: Mild distention, soft, tender to palpation in epigastric with no guarding or rebound. No peritoneal signs. Const: Vital Signs, click to edit/add: Vital Signs - 24 hr 08/19/24 13:05 08/19/24 13:18 08/19/24 13:30 Temperature 100.5 F H Pulse Rate 122 H 117 H Pulse Rate [Pulse Oximeter] 111 H Respiratory Rate 22 Blood Pressure Blood Pressure [Ri ght Arm] Blood Pressure [Ri ght Upper Arm] 164/124 H Pulse Oximetry 96 97 97 Oxygen Delivery Me thod Room Air 08/19/24 13:33 08/19/24 13:35 08/19/24 13:45 Temperature Pulse Rate 109 H 111 H 100 Pulse Rate [Pulse Oximeter] Respiratory Rate 16 Blood Pressure 128/80 128/80 Blood Pressure [Ri ght Arm] Blood Pressure [Ri ght Upper Arm] Pulse Oximetry 95 96 97 Oxygen Delivery Me thod 08/19/24 14:12 08/19/24 14:15 08/19/24 14:30 Temperature Pulse Rate 108 H 105 H 107 H Pulse Rate [Pulse Oximeter] Respiratory Rate Blood Pressure Blood Pressure [Ri ght Arm] Blood Pressure [Ri ght Upper Arm] Pulse Oximetry 96 98 96 Oxygen Delivery Me thod 08/19/24 14:31 08/19/24 14:32 08/19/24 14:45 Temperature Pulse Rate 107 H 108 H 110 H Pulse Rate [Pulse Oximeter] Respiratory Rate 16 Blood Pressure 125/63 Blood Pressure [Ri ght Arm] Blood Pressure [Ri ght Upper Arm] Pulse Oximetry 96 98 95 Oxygen Delivery Me thod 08/19/24 15:00 08/19/24 15:01 08/19/24 15:15 Temperature Pulse Rate 114 H 116 H 114 H Pulse Rate [Pulse Oximeter] Respiratory Rate Blood Pressure 110/68 Blood Pressure [Ri ght Arm] Blood Pressure [Ri ght Upper Arm] Pulse Oximetry 95 94 96 Oxygen Delivery Me thod 08/19/24 15:43 08/19/24 16:18 08/19/24 17:58 Temperature 100.5 F H 100.4 F H 97.7 F Pulse Rate Pulse Rate [Pulse Oximeter] 107 H Respiratory Rate 16 Blood Pressure Blood Pressure [Ri ght Arm] 125/63 Blood Pressure [Ri ght Upper Arm] Pulse Oximetry 96 Oxygen Delivery Me thod Room Air 08/19/24 17:59 08/19/24 19:38 08/19/24 22:32 Temperature 99.0 F 97.0 F L Pulse Rate Pulse Rate [Pulse Oximeter] 107 H 97 Respiratory Rate 18 18 16 Blood Pressure Blood Pressure [Ri ght Arm] 125/76 98/53 L Blood Pressure [Ri ght Upper Arm] Pulse Oximetry 95 94 Oxygen Delivery Me thod Room Air Room Air Room Air 08/20/24 02:14 08/20/24 02:37 08/20/24 03:23 Temperature 100.6 F H 100.6 F H 101.2 F H Pulse Rate Pulse Rate [Pulse Oximeter] 107 H Respiratory Rate 18 Blood Pressure Blood Pressure [Ri ght Arm] 135/86 Blood Pressure [Ri ght Upper Arm] Pulse Oximetry 97 Oxygen Delivery Me thod Room Air 08/20/24 04:22 08/20/24 04:27 08/20/24 04:58 Temperature 101.2 F H 99.2 F 98.1 F Pulse Rate Pulse Rate [Pulse Oximeter] Respiratory Rate Blood Pressure Blood Pressure [Ri ght Arm] Blood Pressure [Ri ght Upper Arm] Pulse Oximetry Oxygen Delivery Me thod 08/20/24 06:44 08/20/24 07:00 08/20/24 07:55 Temperature 98.6 F 98.6 F Pulse Rate Pulse Rate [Pulse Oximeter] 92 92 Respiratory Rate 20 18 Blood Pressure Blood Pressure [Ri ght Arm] Blood Pressure [Ri ght Upper Arm] Pulse Oximetry 96 Oxygen Delivery Me thod Room Air Results Labs Labs: Abnormal lab results 08/19/24 08/19/24 08/20/24 Range/Units 13:28 18:03 06:23 WBC 19.23 H 17.44 H (4.50-11.00) K/uL RBC 3.64 L (4.00-5.20) m/uL Hgb 10.7 L (12.0-16.0) gm/dL Hct 30.9 L (33.0-51.0) % Neut % (Auto) 75.0 H 72.5 H (42.0-72.0) % Lymph % (Auto) 14.6 L 15.7 L (20-44) % Neut # (Auto) 14.40 H 12.60 H (1.7-7.0) K/uL [place] # (Auto) 1.40 H 1.50 H (0.00-0.90) K/UL Sodium 134 L (135-149) mmol/L Carbon Dioxide 16 L (20-32) mmol/L Creatinine 0.4 L (0.5-1.5) mg/dL Calcium 8.0 L (8.4-10.6) mg/dL AST 43 H (12-35) U/L ALT 66 H (4-35) U/L C-Reactive Protein 3.9 H 18.5 H (0.5-1.0) mg/dL Urine Bacteria Few A (None) Diabetes panel 08/19/24 08/20/24 Range/Units 13:28 06:23 Sodium 134 L 135 (135-149) mmol/L Potassium 4.1 3.6 (3.6-5.1) mmol/L Chloride 106 105 (96-114) mmol/L Carbon Dioxide 16 L 23 (20-32) mmol/L BUN 6 9 (5-24) mg/dL Creatinine 0.4 L 0.6 (0.5-1.5) mg/dL Glucose 90 99 (60-115) mg/dL Calcium 8.4 8.0 L (8.4-10.6) mg/dL AST 43 H (12-35) U/L ALT 66 H (4-35) U/L Alkaline Phosphatase 72 (40-150) U/L Total Protein 7.3 (6.0-8.3) g/dL Albumin 3.8 (3.3-5.0) g/dL Calcium panel 08/19/24 08/20/24 Range/Units 13:28 06:23 Calcium 8.4 8.0 L (8.4-10.6) mg/dL Albumin 3.8 (3.3-5.0) g/dL Pituitary panel 08/19/24 08/20/24 Range/Units 13:28 06:23 Sodium 134 L 135 (135-149) mmol/L Potassium 4.1 3.6 (3.6-5.1) mmol/L Chloride 106 105 (96-114) mmol/L Carbon Dioxide 16 L 23 (20-32) mmol/L BUN 6 9 (5-24) mg/dL Creatinine 0.4 L 0.6 (0.5-1.5) mg/dL Glucose 90 99 (60-115) mg/dL Calcium 8.4 8.0 L (8.4-10.6) mg/dL Adrenal panel 08/19/24 08/20/24 Range/Units 13:28 06:23 Sodium 134 L 135 (135-149) mmol/L Potassium 4.1 3.6 (3.6-5.1) mmol/L Chloride 106 105 (96-114) mmol/L Carbon Dioxide 16 L 23 (20-32) mmol/L BUN 6 9 (5-24) mg/dL Creatinine 0.4 L 0.6 (0.5-1.5) mg/dL Glucose 90 99 (60-115) mg/dL Calcium 8.4 8.0 L (8.4-10.6) mg/dL Total Bilirubin 0.9 (0.1-1.5) mg/dL AST 43 H (12-35) U/L ALT 66 H (4-35) U/L Alkaline Phosphatase 72 (40-150) U/L Total Protein 7.3 (6.0-8.3) g/dL Albumin 3.8 (3.3-5.0) g/dL All other labs normal. Imaging Abdomen CT scan report/results: report reviewed and image reviewed Progress Note:A&P Assessment and plan (1) Duodenitis: Status: Acute Assessment and Plan: Patient presents with 3 days worsening epigastric abdominal pain. Workup was obtained with evidence of leukocytosis (19--17) and increased inflammatory markers (3.9--18.5). CT scan was performed and demonstrated significant inflammation of the duodenum and pancreas. Her LFTs are significant for mild elevation in transaminases, lipase within normal limits (156). Suspect duodenitis as etiology of inflammation. Patient certainly has risks of mucosal irritation or ulcer disease given her history of smoking, recent steroid use, daily NSAID and binge drinking. No evidence of perforation on imaging. Recommend conservative management at this time. -NPO, IV fluids -IV narcotics sparingly -IV PPI, oral sucralfate -IV Zosyn -encourage ambulation -SCDs for DVT prophylaxis, okay for Lovenox Will continue to follow closely. Please call with any acute clinical changes.
[2024-08-20] MEDS: SUCRALFATE 1 GM TABLET PO ×2 (11:34→19:00)
[2024-08-20] MEDS: ENOXAPARIN 40 MG/0.4 ML INJ SUBCUT (11:36)
[2024-08-20] MEDS: PIPERACILLIN/TAZOBACTAM 3.375 GM in 0.9 % SODIUM CHLORIDE Mini-bag 100 ML IVPB ×3 (11:38→22:41)
[2024-08-20] MEDS: ONDANSETRON 2 MG/ML inj 4 MG IVP (15:59)
--- NOTE | 2024-08-20 20:11 | PC.NURSE ---
Nursing Care Hours: [id number] Pt this shift oriented and cooperative. Pt frustrated in morning with increase in pain during hospitalist rounding. After hospitalist left room, pt crying. Studio Technician offered support and calm environment. Effective. Pain treated with IV morphine see eMAR. Pt febrile with oral temps. BP stable, tachycardic. Pain reported in lower two quadrants. BS active. Pt reports passing gas but no BM. Voiding in toilet, not catching it all in hat. pt reported to aid blood in urine. Urine dumped before story writer could see. Reported this to Dr Dobbins. Reported to oncoming nurse to keep eye on u/o and BP for signs of bleeding and sepsis. Pt NPO with ice chips. Pt is stating feeling starving but educated on importance of letting bowels rest today and revisit tomorrow with surgeon. Per pt verbal ok, story writer updated family member who is watching pt daughter. Reported to family member that pt will be here for a couple of days per surgeon.
[2024-08-20 20:43] LABS: Lactate* 0.9 mmol/L (0.5-1.9)
[2024-08-20] MEDS: cloNIDine HCL 0.1 MG TABLET 0.2 MG PO (20:46)
[2024-08-20 20:47] LABS: Basophils Percent Auto 0.2 % (0.0-3.0); Eosinophils Percent Auto 1.2 % (0.0-7.0); Hematocrit 31.7 % (33.0-51.0); Immature Granulocytes Pct Auto 1.1 %; Lymphocytes Percent Auto 14.4 % (20-44); Mean Corpuscular HGB Conc 35 gm/dL (32-36); Mean Corpuscular Hemoglobin 29 pg (26-34); Mean Corpuscular Volume 84 fL (80-100); Monocytes Percent Auto 8.8 % (0.0-11.0); Neutrophils Percent Auto 74.3 % (42.0-72.0); Platelet Count* 254 K/uL (140-440); RDW Coefficient of Variation % 12.9 % (11.5-15.5); Red Blood Count 3.76 m/uL (4.00-5.20); White Blood Count* 19.22 K/uL (4.50-11.00)
[2024-08-20] MEDS: QUETIAPINE 100 MG TABLET PO (20:47)
[2024-08-20] MEDS: GABAPENTIN 300 MG CAPSULE 900 MG PO (20:47)
[2024-08-20 20:49] LABS: Slide Review Reflex No
[2024-08-20 20:56] LABS: Albumin* 3.4 g/dL (3.3-5.0); Chloride* 105 mmol/L (96-114); Sodium* 134 mmol/L (135-149)
[2024-08-20 20:57] LABS: Potassium* 3.6 mmol/L (3.6-5.1)
[2024-08-20 20:59] LABS: Alanine Aminotransferase* 52 U/L (4-35); Alkaline Phosphatase* 79 U/L (40-150); Anion Gap 5 mEq/L (7-15); Aspartate Amino Transferase* 42 U/L (12-35); Bilirubin Total* 0.9 mg/dL (0.1-1.5); Blood Urea Nitrogen* 7 mg/dL (5-24); Calcium* 8.4 mg/dL (8.4-10.6); Carbon Dioxide* 24 mmol/L (20-32); Creatinine* 0.6 mg/dL (0.5-1.5); Estimated Glomerular Filt Rate 121 ml/min; Glucose* 88 mg/dL (60-115); Lipase* 60 U/L (23-300); Total Protein* 6.3 g/dL (6.0-8.3)
--- NOTE | 2024-08-20 21:07 | CRLHL7_ITS ---
For Patients: As a result of the Century Cures Act, medical imaging exams and procedure reports are released immediately into your electronic medical record. You may view this report before your referring provider. If you have questions, please contact your health care provider. Indication: Worsening abdominal pain Technique: CT through the abdomen and pelvis following 102 mL Isovue 370 IV contrast Comparison: CT abdomen and pelvis performed prior day Findings: Lower chest: Trace right effusion. Hepatobiliary: No significant parenchymal abnormality is appreciated. Cholecystectomy. Spleen: Unremarkable. Pancreas: Evolving peripancreatic inflammatory changes and inflammatory changes along the right upper quadrant. No significant parenchymal abnormality appreciated. Adrenal glands: No acute abnormality appreciated. Kidneys: No significant parenchymal abnormality appreciated. No visualized calculi. No hydronephrosis. Bowel: No obstruction. Unchanged duodenal wall thickening. Vascular: No acute abnormality appreciated. Lymph nodes: No gross lymphadenopathy. Peritoneum: Increasing stranding and free fluid in the right abdomen. : No acute abnormality appreciated. Soft tissues: No acute abnormality appreciated. Bones: No acute fracture. No lytic or blastic lesion. Impression: Redemonstration of extensive inflammatory stranding and free fluid centered along the proximal pancreas/duodenum. Compared to prior examination, there is increased stranding extending along the right pericolic gutter and slight increased free fluid, otherwise no significant interval change is appreciated with no organized fluid collection or significant parenchymal hypoenhancement of the pancreas. Please note that all CT scans at this facility use dose modulation, iterative reconstruction, and/or weight-based dosing when appropriate to reduce radiation dose to as low as reasonably achievable. Dictated by Liu Rahman MD @ 08/20/2024 9:44:12 PM (Electronically Signed)
--- NOTE | 2024-08-20 21:11 | PM.EN ---
Chart Event Note Chart Event Note: Patient with persistent fevers and tachycardia. Complaining of worsening pain. Repeat labs obtained, WBC trending up, CRP still high. LFTs and lipase within normal limits. Given worsening clinical picture recommending STAT CT abdomen/pelvis.
[2024-08-20 21:28] LABS: C Reactive Protein* 32.5 mg/dL (0.5-1.0)
[2024-08-20] MEDS: LACTATED RINGERS 500 ML 500 ML IV (23:34)
[2024-08-21] VITALS (12 sets, daily range): BP systolic 102–127; BP diastolic 66–77; PULSE 88–104; RESP 16–22; TEMP 36.6–38.6; O2SAT 92–96
[2024-08-21] MEDS: MORPHINE 2 MG/ML inj IVP ×9 (00:47→20:35)
[2024-08-21] MEDS: SUCRALFATE 1 GM TABLET PO ×3 (02:11→19:19)
[2024-08-21] MEDS: ACETAMINOPHEN 325 MG TABLET 650 MG PO ×4 (02:16→22:43)
[2024-08-21] MEDS: PIPERACILLIN/TAZOBACTAM 3.375 GM in 0.9 % SODIUM CHLORIDE Mini-bag 100 ML IVPB ×4 (04:58→22:43)
--- NOTE | 2024-08-21 06:25 | PC.NURSE ---
End of shift [id number]: A&O pleasant and cooperative. reporting pain in lower abdomen. she reports this is worse with movement. see eMAR for interventions. still having intermittent fevers throughout shift which are relieved by PRN tylenol. x1 hypotensive BP. notified. see orders. BP stable since then. No BM. bowel sounds hypoactive and pt reports passing gas. denies n/v. NPO w/ ice chips. using call light appropriately.
[2024-08-21] MEDS: LACTATED RINGERS 1000 ML 1,000 ML 125 ML IV ×2 (06:39→19:19)
[2024-08-21 07:00] LABS: Basophils Percent Auto 0.2 % (0.0-3.0); Eosinophils Percent Auto 1.8 % (0.0-7.0); Hematocrit 29.2 % (33.0-51.0); Hemoglobin* 10.2 gm/dL (12.0-16.0); Immature Granulocytes Pct Auto 0.9 %; Lymphocytes Percent Auto 14.7 % (20-44); Mean Corpuscular HGB Conc 35 gm/dL (32-36); Mean Corpuscular Hemoglobin 30 pg (26-34); Mean Corpuscular Volume 85 fL (80-100); Monocytes Percent Auto 9.4 % (0.0-11.0); Platelet Count* 240 K/uL (140-440); RDW Coefficient of Variation % 13.1 % (11.5-15.5); Red Blood Count 3.42 m/uL (4.00-5.20); White Blood Count* 17.42 K/uL (4.50-11.00)
[2024-08-21 07:15] LABS: Albumin* 3.1 g/dL (3.3-5.0); Chloride* 105 mmol/L (96-114); Potassium* 3.4 mmol/L (3.6-5.1); Sodium* 136 mmol/L (135-149)
[2024-08-21 07:17] LABS: Blood Urea Nitrogen* 5 mg/dL (5-24); Creatinine* 0.6 mg/dL (0.5-1.5); Estimated Glomerular Filt Rate 121 ml/min
[2024-08-21 07:18] LABS: Alanine Aminotransferase* 44 U/L (4-35); Alkaline Phosphatase* 81 U/L (40-150); Anion Gap 5 mEq/L (7-15); Aspartate Amino Transferase* 33 U/L (12-35); Bilirubin Direct* 0.4 mg/dL (0.0-0.5); Bilirubin Total* 0.8 mg/dL (0.1-1.5); Calcium* 8.3 mg/dL (8.4-10.6); Carbon Dioxide* 26 mmol/L (20-32); Glucose* 84 mg/dL (60-115)
[2024-08-21 07:19] LABS: Magnesium* 1.8 mg/dL (1.5-2.6)
[2024-08-21 07:28] LABS: Slide Review Reflex No
[2024-08-21 07:51] LABS: C Reactive Protein* 33.2 mg/dL (0.5-1.0)
[2024-08-21] MEDS: ALBUTEROL SULFATE 2.5 MG/3 ML VIAL.NEB NEB (08:01)
[2024-08-21] MEDS: lisinopriL 10 MG TABLET PO (09:24)
[2024-08-21] MEDS: OXYCODONE 5 MG TABLET PO ×3 (09:24→22:43)
[2024-08-21] MEDS: CETIRIZINE HCL 10 MG TABLET PO (09:24)
[2024-08-21] MEDS: GABAPENTIN 600 MG TABLET PO (09:24)
[2024-08-21] MEDS: OMEPRAZOLE 20 MG CAPSULE DR 40 MG PO (09:24)
[2024-08-21] MEDS: PANTOPRAZOLE SODIUM 40 MG INJ IVP ×2 (09:25→20:33)
--- NOTE | 2024-08-21 09:25 | P.GSPN_ITS ---
Subjective Subjective Date Seen: 08/21/24 Interval history: Patient continues to have persistent pain. It gets worse with moving. She thinks it is stable compared to last night. She has been requiring pain medicine frequently for her discomfort. Is feeling hungry this morning. Contin ues to pass gas. No nausea or vomiting. No bowel movement. Exam Narrative: Exam Narrative: General: Alert and oriented, in some mild distress but nontoxic in appearance Respiratory: Equal breath rise, maintained on room air CV: Well perfused, tachycardic Abdomen: Mild distention, soft. Diffuse guarding, worse on the right side compared to left. No rebound. Const: Vital Signs, click to edit/add: Vital Signs - 24 hr 08/20/24 11:00 08/20/24 11:33 08/20/24 15:00 Temperature 100.0 F H 100.0 F H Pulse Rate [Pulse Oximeter] 111 H 111 H Respiratory Rate 18 18 Blood Pressure [Ri ght Arm] 118/71 Pulse Oximetry 97 Oxygen Delivery Me thod Room Air 08/20/24 15:00 08/20/24 16:03 08/20/24 19:30 Temperature 100.6 F H 100.6 F H 99.7 F H Pulse Rate [Pulse Oximeter] 111 H 107 H Respiratory Rate 20 18 Blood Pressure [Ri ght Arm] 104/67 117/70 Pulse Oximetry 98 92 Oxygen Delivery Me thod Room Air Room Air 08/20/24 20:11 08/20/24 20:54 08/20/24 21:28 Temperature 99.7 F H 100.2 F H 98.8 F Pulse Rate [Pulse Oximeter] Respiratory Rate Blood Pressure [Ri ght Arm] Pulse Oximetry Oxygen Delivery Me thod 08/20/24 21:32 08/20/24 23:20 08/21/24 00:49 Temperature 98.5 F 98.8 F Pulse Rate [Pulse Oximeter] 110 H 94 96 Respiratory Rate 18 16 16 Blood Pressure [Ri ght Arm] 108/60 88/57 L 102/66 Pulse Oximetry 92 92 96 Oxygen Delivery Me thod Room Air Room Air Room Air 08/21/24 02:18 08/21/24 02:19 08/21/24 03:18 Temperature 99.9 F H 101.4 F H 99.6 F Pulse Rate [Pulse Oximeter] 104 H Respiratory Rate 16 Blood Pressure [Ri ght Arm] 118/66 Pulse Oximetry 96 Oxygen Delivery Me thod Room Air 08/21/24 07:44 08/21/24 07:44 Temperature 98.7 F Pulse Rate [Pulse Oximeter] 104 H 104 H Respiratory Rate 22 22 Blood Pressure [Ri ght Arm] 111/71 Pulse Oximetry 93 Oxygen Delivery Me thod Room Air Labs/Imaging Labs Labs: Leukocytosis (17). CRP continues to trend up (33). Progress Note:A&P Assessment and plan (1) Duodenitis: Status: Acute Assessment and Plan: Patient HD#3. Continued low grade fevers with intermittent spikes (Tmax 101.4 this morning). Tachycardic. Hypotension overnight, improved with fluids. Abdominal pain stable. Some increased tenderness on my examination this morning. Labs demonstrating persistently elevated WBC (17). CRP continues to trend up, but leveling out (3.9 -- 18.5-- 32.5-- 33.2). repeat CT scan last night demonstrating persistent inflammation around duodenum and pancreatic head, with fluid extending into the right paracolic gutter. No evidence of perforation. No fluid collection suggestive of abscess. Etiology likely secondary to severe duodenitis. No evidence of perforation or bleeding at this time. -continue NPO, IV fluids -IV and po narcotics -IV PPI, oral sucralfate -IV Zosyn -encourage ambulation -SCDs for DVT prophylaxis, okay for Lovenox
[2024-08-21] MEDS: SODIUM CHLORIDE 0.9 % (FLUSH) 10 ML SYRINGE 5 ML IVF ×3 (09:26→20:34)
[2024-08-21] MEDS: ARIPiprazole 10 MG TABLET 2.5 MG PO (09:26)
[2024-08-21] MEDS: NICOTINE 14 mg PATCH 1 PATCH TOPICAL (09:26)
--- NOTE | 2024-08-21 11:50 | P.IMPN_ITS ---
Assessment and Plan Assessment and plan (1) Duodenitis: Problem comment: CT shows inflammatory changes at the duodenum and pancreatic area. No pneumoperitoneum. CT abd repeated on 08/20 that showed further extension of the inflammation to Rt pericolic gutter + increased free fluid in the abdomen, but no perforation or abscess collection. Patient states that she takes NSAIDs almost every day for years. She denies any hx of blood in the stool or any history of black stools or melena and no history of peptic ulcer disease, no history of previous upper endoscopies or hx of H pylori infection per the patient. Cont trending CRP. H Pylori Ag test ordered. NPO Continue Zosyn (started 08/20), patient is developing fever Initiated Vanc 08/21. Ordered blood cultures and MRSA screen 08/21. Cont intravenous PPI IV fluids and IV pain medications. Gen Sx consulted. Conservative management for now Status: Acute (2) Sepsis: Problem comment: Pt met sepsis criteria on admission w/ WBC @ 19K and tachycardia 111. Developed fever. IVF bolus given + Abx started LA WNL Bl Cx ordered, F/Up Status: Acute (3) Pancreatitis: Problem comment: Inflammatory changes most likely due to duodenitis rather than primary pancreatitis NL Lipase Status: Suspected (4) Leukocytosis: Problem comment: Urinalysis is negative Infection V/S reactive Ordered Bl Cx Continue trending Status: Acute (5) Transaminitis: Problem comment: Mild, chronic Patient will need outpatient follow-up Status: Chronic (6) GERD (gastroesophageal reflux disease): Problem comment: On omeprazole at home Status: Acute (7) Hypertension: Problem comment: Resume lisinopril Status: Acute (8) Asthma: Problem comment: Resume home inhalers Status: Acute (9) Obesity: Status: Acute (10) Tobacco abuse disorder: Problem comment: Ordered nicotine patch Status: Chronic (11) History of methamphetamine abuse: Status: Acute (12) Generalized anxiety disorder: Status: Acute Total Time Spent Total Time Spent: Today I spent 50 minutes seeing the patient, reviewing Expanse and EPIC notes/diagnostics, discussing the care plan with our care time that includes social work, PT/OT, pharmacy, RT, residential and documenting my impressions and plan in the medical record. Subjective Date Seen: 08/21/24 Interval history: Overnight, pt developed fevers (101.[address] abd repeated and showed further extension of the inflammation but no perforation or abscess collection. Patient was seen and examined at bedside today, no rigidity. She states that her abdominal pain didnt improve but no nausea. No BM yet. Exam Narrative: Exam Narrative: Physical exam GENERAL: No acute distress. HEAD AND NECK: Atraumatic, normocephalic CARDIOVASCULAR: RRR. Normal S1, S2. No murmurs. RESPIRATORY: Clear to auscultation B/L. Good air entry B/L. No wheezes or rhonchi. GASTROINTESTINAL: Not distended, tender to palpation, no rigidity. NEUROLOGY: Alert, awake, oriented X 3. Normal speech. PSYCH: Normal mood, normal affect. Const: Vital Signs, click to edit/add: Vital Signs - 24 hr 08/20/24 15:00 08/20/24 15:00 08/20/24 16:03 Temperature 100.6 F H 100.6 F H Pulse Rate [Pulse Oximeter] 111 H 111 H Respiratory Rate 18 20 Blood Pressure [Ri ght Arm] 104/67 Pulse Oximetry 98 Oxygen Delivery Me thod Room Air 08/20/24 19:30 08/20/24 20:11 08/20/24 20:54 Temperature 99.7 F H 99.7 F H 100.2 F H Pulse Rate [Pulse Oximeter] 107 H Respiratory Rate 18 Blood Pressure [Ri ght Arm] 117/70 Pulse Oximetry 92 Oxygen Delivery Me thod Room Air 08/20/24 21:28 08/20/24 21:32 08/20/24 23:20 Temperature 98.8 F 98.5 F Pulse Rate [Pulse Oximeter] 110 H 94 Respiratory Rate 18 16 Blood Pressure [Ri ght Arm] 108/60 88/57 L Pulse Oximetry 92 92 Oxygen Delivery Me thod Room Air Room Air 08/21/24 00:49 08/21/24 02:18 08/21/24 02:19 Temperature 98.8 F 99.9 F H 101.4 F H Pulse Rate [Pulse Oximeter] 96 104 H Respiratory Rate 16 16 Blood Pressure [Ri ght Arm] 102/66 118/66 Pulse Oximetry 96 96 Oxygen Delivery Me thod Room Air Room Air 08/21/24 03:18 08/21/24 07:44 08/21/24 07:44 Temperature 99.6 F 98.7 F Pulse Rate [Pulse Oximeter] 104 H 104 H Respiratory Rate 22 22 Blood Pressure [Ri ght Arm] 111/71 Pulse Oximetry 93 Oxygen Delivery Me thod Room Air Labs Labs: Laboratory Results - last 24 hr 08/20/24 08/21/24 20:39 06:00 WBC 19.22 H 17.42 H RBC 3.76 L 3.42 L Hgb 11.0 L 10.2 L Hct 31.7 L 29.2 L MCV 84 85 MCH 29 30 MCHC 35 35 RDW Coeff of [place] 12.9 13.1 Plt Count 254 240 Neut % (Auto) 74.3 H 73.0 H Lymph % (Auto) 14.4 L 14.7 L [place] % (Auto) 8.8 9.4 Eos % (Auto) 1.2 1.8 Baso % (Auto) 0.2 0.2 Neut # (Auto) 14.30 H 12.70 H Lymph # (Auto) 2.80 2.60 [place] # (Auto) 1.70 H 1.60 H Eos # (Auto) 0.20 0.30 Baso # (Auto) 0.00 0.00 Abs Immat Gran (auto) 0.20 0.20 Imm/Tot Granulo (auto) 1.1 0.9 Sodium 134 L 136 Potassium 3.6 3.4 L Chloride 105 105 Carbon Dioxide 24 26 Anion Gap 5 L 5 L BUN 7 5 Creatinine 0.6 0.6 Estimated Creat Clear 94.90 94.90 Estimated GFR 121 121 Glucose 88 84 Lactate 0.9 Calcium 8.4 8.3 L Magnesium 1.8 Total Bilirubin 0.9 0.8 Direct Bilirubin 0.4 AST 42 H 33 ALT 52 H 44 H Alkaline Phosphatase 79 81 C-Reactive Protein 32.5 H 33.2 H Total Protein 6.3 6.0 Albumin 3.4 3.1 L Lipase 60
[2024-08-21] MEDS: ENOXAPARIN 40 MG/0.4 ML INJ SUBCUT (11:54)
[2024-08-21] MEDS: POTASSIUM CHLORIDE 10 MEQ/100 ML PIGGYBACK 100 MEQ IVPB ×3 (13:10→16:58)
[2024-08-21] MEDS: VANCOMYCIN 1.5 GM/300 ML 1.5 GM/300 ML PIGGYBACK IVPB (14:16)
--- NOTE | 2024-08-21 15:53 | PC.NURSE ---
Nursing Care Hours: [id number] Pt this shift alert and oriented, cooperative with POC. Irritable in the morning d/t pain and not feeling good per pt. Pain rated 6-8/10, treated with IV morphine per order. Trial oxycodone 10mg without relief per pt, however pt did take a couple hour nap. BS hypoactive, pt reports passing gas. Voiding light elfego. IV infusing fluids. ABX infused and new vancomycin infusing. Potassium replacement also administered. PRN neb given for tight cough and wheezing to R lobe, tx effective. Denies nausea today.
[2024-08-21] MEDS: cloNIDine HCL 0.1 MG TABLET 0.2 MG PO (20:33)
[2024-08-21] MEDS: GABAPENTIN 300 MG CAPSULE 900 MG PO (20:33)
[2024-08-21] MEDS: QUETIAPINE 100 MG TABLET PO (20:33)
[2024-08-22] VITALS (9 sets, daily range): BP systolic 106–126; BP diastolic 64–88; PULSE 84–100; RESP 16–18; TEMP 36.9–37.5; O2SAT 92–95
[2024-08-22] MEDS: MORPHINE 2 MG/ML inj IVP ×10 (00:27→23:09)
[2024-08-22] MEDS: SODIUM CHLORIDE 0.9 % (FLUSH) 10 ML SYRINGE IVF ×3 (00:27→23:15)
[2024-08-22] MEDS: VANCOMYCIN 1.25 GM/250 ML 1.25 GM/250 ML PIGGYBACK IVPB ×2 (01:47→14:35)
[2024-08-22] MEDS: LACTATED RINGERS 1000 ML 1,000 ML 125 ML IV ×3 (02:55→19:58)
[2024-08-22] MEDS: SUCRALFATE 1 GM TABLET PO ×3 (02:56→18:09)
[2024-08-22] MEDS: OXYCODONE 5 MG TABLET PO ×3 (04:34→18:08)
[2024-08-22] MEDS: ACETAMINOPHEN 325 MG TABLET 650 MG PO ×2 (04:35→14:36)
[2024-08-22] MEDS: PIPERACILLIN/TAZOBACTAM 3.375 GM in 0.9 % SODIUM CHLORIDE Mini-bag 100 ML IVPB ×4 (04:36→23:08)
--- NOTE | 2024-08-22 04:54 | PC.NURSE ---
Pt NPO. Pain rated 8-9/10. No Nausea. Up IND in room and voiding. Pt pleasant and cooperative.
[2024-08-22 04:59] LABS: Basophils Percent Auto 0.3 % (0.0-3.0); Eosinophils Percent Auto 2.5 % (0.0-7.0); Hematocrit 30.8 % (33.0-51.0); Hemoglobin* 10.2 gm/dL (12.0-16.0); Immature Granulocytes Pct Auto 1.1 %; Lymphocytes Percent Auto 13.5 % (20-44); Mean Corpuscular HGB Conc 33 gm/dL (32-36); Mean Corpuscular Hemoglobin 29 pg (26-34); Mean Corpuscular Volume 88 fL (80-100); Monocytes Percent Auto 8.8 % (0.0-11.0); Neutrophils Percent Auto 73.8 % (42.0-72.0); Platelet Count* 263 K/uL (140-440); RDW Coefficient of Variation % 13.1 % (11.5-15.5); Red Blood Count 3.52 m/uL (4.00-5.20); White Blood Count* 16.08 K/uL (4.50-11.00)
[2024-08-22 05:00] LABS: Slide Review Reflex No
[2024-08-22 05:47] LABS: Anion Gap 8 mEq/L (7-15); Blood Urea Nitrogen* 4 mg/dL (5-24); Calcium* 8.5 mg/dL (8.4-10.6); Carbon Dioxide* 24 mmol/L (20-32); Chloride* 104 mmol/L (96-114); Creatinine* 0.6 mg/dL (0.5-1.5); Estimated Glomerular Filt Rate 121 ml/min; Glucose* 77 mg/dL (60-115); Potassium* 3.6 mmol/L (3.6-5.1); Sodium* 136 mmol/L (135-149)
[2024-08-22 05:48] LABS: C Reactive Protein* 43.5 mg/dL (0.5-1.0)
--- NOTE | 2024-08-22 06:14 | PM.GSPN ---
Subjective Subjective Date Seen: 08/22/24 Interval history: Patient feels ?tired? this morning. Her pain continues in her abdomen. She describes this as persistent, but not worsening. Is still feeling hungry. No nausea or vomiting. Continues to pass gas. Has not had a bowel movement for several days, but thinks it is due to not being able to eat. No fevers overnight. Feels bloated. Exam Narrative: Exam Narrative: General: Alert and oriented, nontoxic Respiratory: Equal breath rise bilaterally, maintained on room air CV: Well perfused Abdomen: Mild distention, soft, tenderness diffusely but no guarding or rebound. Const: Vital Signs, click to edit/add: Vital Signs - 24 hr 08/21/24 07:44 08/21/24 07:44 08/21/24 11:00 Temperature 98.7 F 99.2 F Pulse Rate [Pulse Oximeter] 104 H 104 H 99 Respiratory Rate 22 22 22 Blood Pressure [Ri ght Arm] 111/71 127/77 Pulse Oximetry 93 92 Oxygen Delivery Me thod Room Air Room Air 08/21/24 12:11 08/21/24 15:00 08/21/24 15:30 Temperature 99.6 F 97.9 F Pulse Rate [Pulse Oximeter] 99 Respiratory Rate 20 20 Blood Pressure [Ri ght Arm] 114/77 Pulse Oximetry 95 Oxygen Delivery Me thod Room Air 08/21/24 19:00 08/21/24 22:50 08/21/24 22:51 Temperature 98.6 F 98.8 F Pulse Rate [Pulse Oximeter] 97 88 88 Respiratory Rate 20 16 16 Blood Pressure [Ri ght Arm] 114/75 102/67 Pulse Oximetry 93 92 Oxygen Delivery Me thod Room Air Room Air 08/22/24 03:06 08/22/24 04:35 Temperature 99.1 F 99.1 F Pulse Rate [Pulse Oximeter] 89 Respiratory Rate 16 Blood Pressure [Ri ght Arm] 106/71 Pulse Oximetry 95 Oxygen Delivery Me thod Room Air Labs/Imaging Labs Labs: Leukocytosis (16), CRP (43) Imaging Imaging: No new imaging. Progress Note:A&P Assessment and plan (1) Duodenitis: Status: Acute Assessment and Plan: Patient HD#4. Afebrile overnight and no longer tachycardic. On exam she is less tender for me this morning, but has continued to require frequent pain medications. Her labs show a decreasing leukocytosis (17--19--17--16). CRP continues to trend up (43 this morning). Some improvement in her exam, no evidence of peritonitis concerning for perforation at this time. Although her CRP continues to trend up, her leukocytosis is slowly improving and her fever curve has improved. She is reporting some increased abdominal distension. Patient is at high risk for developing an ileus. Recommend continued supportive care at this time. -continue NPO, IV fluids -IV and po narcotics -IV PPI, oral sucralfate -IV Zosyn, vancomycin added by hospitalist -encourage ambulation -SCDs for DVT prophylaxis, okay for Lovenox
[2024-08-22] MEDS: SODIUM CHLORIDE 0.9 % (FLUSH) 10 ML SYRINGE 5 ML IVF ×2 (08:04→19:57)
[2024-08-22] MEDS: NICOTINE 14 mg PATCH 1 PATCH TOPICAL (10:02)
[2024-08-22] MEDS: CETIRIZINE HCL 10 MG TABLET PO (10:03)
[2024-08-22] MEDS: PANTOPRAZOLE SODIUM 40 MG INJ IVP ×2 (10:03→19:56)
[2024-08-22] MEDS: lisinopriL 10 MG TABLET PO (10:03)
[2024-08-22] MEDS: OMEPRAZOLE 20 MG CAPSULE DR 40 MG PO (10:03)
[2024-08-22] MEDS: ARIPiprazole 10 MG TABLET 2.5 MG PO (10:04)
[2024-08-22] MEDS: GABAPENTIN 600 MG TABLET PO (10:04)
[2024-08-22] MEDS: ENOXAPARIN 40 MG/0.4 ML INJ SUBCUT (10:51)
--- NOTE | 2024-08-22 13:49 | PM.IMPN1 ---
Assessment and Plan Assessment and plan (1) Duodenitis: Problem comment: CT shows inflammatory changes at the duodenum and pancreatic area. No pneumoperitoneum. CT abd repeated on 08/20 that showed further extension of the inflammation to Rt pericolic gutter + increased free fluid in the abdomen, but no perforation or abscess collection. Patient states that she takes NSAIDs almost every day for years. She denies any hx of blood in the stool or any history of black stools or melena and no history of peptic ulcer disease, no history of previous upper endoscopies or hx of H pylori infection per the patient. Cont trending CRP. H Pylori Ag test ordered. NPO Continue Zosyn (started 08/20), patient is had fever Continue Vanc (started 08/21). Ordered blood cultures and MRSA screen 08/21. Cont intravenous PPI IV fluids and IV pain medications. Gen Sx consulted. Conservative management for now Status: Acute (2) Sepsis: Problem comment: Pt met sepsis criteria on admission w/ WBC @ 19K and tachycardia 111. Developed fever. IVF bolus given + Abx started LA WNL Bl Cx ordered, F/Up Status: Acute (3) Pancreatitis: Problem comment: Inflammatory changes most likely due to duodenitis rather than primary pancreatitis NL Lipase Status: Suspected (4) Leukocytosis: Problem comment: Urinalysis is negative Infection V/S reactive Ordered Bl Cx Continue trending Status: Acute (5) Transaminitis: Problem comment: Mild, chronic Patient will need outpatient follow-up Status: Chronic (6) GERD (gastroesophageal reflux disease): Problem comment: On omeprazole at home Status: Acute (7) Hypertension: Problem comment: Resume lisinopril Status: Acute (8) Asthma: Problem comment: Resume home inhalers Status: Acute (9) Obesity: Status: Acute (10) Tobacco abuse disorder: Problem comment: Ordered nicotine patch Status: Chronic (11) History of methamphetamine abuse: Status: Acute (12) Generalized anxiety disorder: Status: Acute Total Time Spent Total Time Spent: Today I spent 50 minutes seeing the patient, reviewing Expanse and EPIC notes/diagnostics, discussing the care plan with our care time that includes social work, PT/OT, pharmacy, RT, correction and documenting my impressions and plan in the medical record. Subjective Date Seen: 08/22/24 Interval history: Overnight, patient was afebrile and not tachycardic. Patient was seen and examined at bedside today, no rigidity. She states that her abdominal pain is still consistent, no nausea or vomiting. No BM yet. Exam Narrative: Exam Narrative: Physical exam GENERAL: no acute distress. HEAD AND NECK: Atraumatic, normocephalic CARDIOVASCULAR: RRR. Normal S1, S2. No murmurs. RESPIRATORY: Clear to auscultation B/L. Good air entry B/L. No wheezes or rhonchi. GASTROINTESTINAL: Not distended, tender to palpation diffusely. NEUROLOGY: Alert, awake, oriented X 3. Normal speech. Const: Vital Signs, click to edit/add: Vital Signs - 24 hr 08/21/24 15:00 08/21/24 15:30 08/21/24 19:00 Temperature 97.9 F 98.6 F Pulse Rate [Pulse Oximeter] 99 97 Respiratory Rate 20 20 20 Blood Pressure [Ri ght Arm] 114/77 114/75 Pulse Oximetry 95 93 Oxygen Delivery Me thod Room Air Room Air 08/21/24 22:50 08/21/24 22:51 08/22/24 03:06 Temperature 98.8 F 99.1 F Pulse Rate [Pulse Oximeter] 88 88 89 Respiratory Rate 16 16 16 Blood Pressure [Ri ght Arm] 102/67 106/71 Pulse Oximetry 92 95 Oxygen Delivery Me thod Room Air Room Air 08/22/24 04:35 08/22/24 07:00 08/22/24 07:00 Temperature 99.1 F 98.4 F Pulse Rate [Pulse Oximeter] 84 84 Respiratory Rate 18 18 Blood Pressure [Ri ght Arm] 111/72 Pulse Oximetry 94 Oxygen Delivery Me thod Room Air 08/22/24 11:00 Temperature 99.5 F Pulse Rate [Pulse Oximeter] 99 Respiratory Rate 18 Blood Pressure [Ri ght Arm] 123/79 Pulse Oximetry 92 Oxygen Delivery Me thod Room Air Labs Labs: Laboratory Results - last 24 hr 08/22/24 04:38 WBC 16.08 H RBC 3.52 L Hgb 10.2 L Hct 30.8 L MCV 88 MCH 29 MCHC 33 RDW Coeff of [place] 13.1 Plt Count 263 Neut % (Auto) 73.8 H Lymph % (Auto) 13.5 L [place] % (Auto) 8.8 Eos % (Auto) 2.5 Baso % (Auto) 0.3 Neut # (Auto) 11.90 H Lymph # (Auto) 2.20 [place] # (Auto) 1.40 H Eos # (Auto) 0.40 Baso # (Auto) 0.00 Abs Immat Gran (auto) 0.20 Imm/Tot Granulo (auto) 1.1 Sodium 136 Potassium 3.6 Chloride 104 Carbon Dioxide 24 Anion Gap 8 BUN 4 L Creatinine 0.6 Estimated Creat Clear 94.90 Estimated GFR 121 Glucose 77 Calcium 8.5 C-Reactive Protein 43.5 H
--- NOTE | 2024-08-22 14:54 | PC.NURSE ---
Pt alert, oriented, and vitally stable. Pain rated 7-10 throughout shift, prn morphine and oxy given, see mar. Pt states feeling weak, fatigued and hungry. Pt allowed longer periods of rest throughout shift. Pt NPO, sips with pills. Pt up independently, voiding appropriately. Pt states flatus. Denies nausea. Pt in bed, call light within reach.?
--- NOTE | 2024-08-22 18:46 | PC.NURSE ---
Pt is frustrated and irritable this afternoon. VSS. Reports 8/10 abdominal pain. PRN pain medications administered. Pt has been noncompliant with NPO status and has been drinking water; she was advanced to clear liquid for supper and tolerated well.
[2024-08-22] MEDS: cloNIDine HCL 0.1 MG TABLET 0.2 MG PO (19:55)
[2024-08-22] MEDS: GABAPENTIN 300 MG CAPSULE 900 MG PO (19:56)
[2024-08-22] MEDS: QUETIAPINE 100 MG TABLET PO (19:57)
[2024-08-22] MEDS: 0.9 % SODIUM CHLORIDE 250 ml IV (23:07)
[2024-08-23] VITALS (9 sets, daily range): BP systolic 107–133; BP diastolic 65–99; PULSE 77–95; RESP 16; TEMP 36.2–37.1; O2SAT 94–96
[2024-08-23] MEDS: OXYCODONE 5 MG TABLET PO ×4 (00:44→20:38)
[2024-08-23] MEDS: MELATONIN 3 MG TABLET PO ×2 (00:59→20:39)
[2024-08-23] MEDS: VANCOMYCIN 1.25 GM/250 ML 1.25 GM/250 ML PIGGYBACK IVPB ×2 (02:27→14:06)
[2024-08-23] MEDS: SUCRALFATE 1 GM TABLET PO ×3 (02:32→18:40)
[2024-08-23] MEDS: SODIUM CHLORIDE 0.9 % (FLUSH) 10 ML SYRINGE IVF (02:38)
[2024-08-23] MEDS: MORPHINE 2 MG/ML inj IVP ×5 (02:38→19:47)
[2024-08-23] MEDS: ACETAMINOPHEN 325 MG TABLET 650 MG PO ×4 (03:57→22:09)
[2024-08-23] MEDS: LACTATED RINGERS 1000 ML 1,000 ML 125 ML IV ×2 (03:59→08:39)
[2024-08-23] MEDS: PIPERACILLIN/TAZOBACTAM 3.375 GM in 0.9 % SODIUM CHLORIDE Mini-bag 100 ML IVPB ×4 (05:22→22:09)
--- NOTE | 2024-08-23 06:13 | PC.NURSE ---
End of shift note [id number]: Pt A&Ox4 and able to make needs known. She is independent with transferring/ambulation. Pt tolerating CL diet with no N/V noted. VSS- pt has been afebrile and on RA throughout the shift. Pt requesting PRN pain medications frequently throughout the shift to help manage abdominal pain. Rest encouraged- pt able to reposition independently. Pt also has Aqua-K pad in room. LR running per order. Pt continent of bladder. IV antibiotics administered per orders. She slept intermittently between cares and multiple medications throughout the shift. Call light within reach. Pt declined scheduled Nicotine patch when offered last evening. Pt states she will be agreeable to obtain daily weight the next time she gets up to go to the bathroom. Day KV[facility] updated. ?
[2024-08-23 06:21] LABS: Basophils Percent Auto 0.2 % (0.0-3.0); Eosinophils Percent Auto 2.9 % (0.0-7.0); Hematocrit 26.3 % (33.0-51.0); Hemoglobin* 8.9 gm/dL (12.0-16.0); Immature Granulocytes Pct Auto 1.1 %; Lymphocytes Percent Auto 15.5 % (20-44); Mean Corpuscular HGB Conc 34 gm/dL (32-36); Mean Corpuscular Hemoglobin 29 pg (26-34); Mean Corpuscular Volume 86 fL (80-100); Monocytes Percent Auto 11.1 % (0.0-11.0); Neutrophils Percent Auto 69.2 % (42.0-72.0); Platelet Count* 289 K/uL (140-440); RDW Coefficient of Variation % 12.8 % (11.5-15.5); Red Blood Count 3.05 m/uL (4.00-5.20); White Blood Count* 15.52 K/uL (4.50-11.00)
[2024-08-23 06:25] LABS: Albumin* 3.2 g/dL (3.3-5.0); Chloride* 105 mmol/L (96-114); Potassium* 3.2 mmol/L (3.6-5.1); Sodium* 136 mmol/L (135-149)
[2024-08-23 06:26] LABS: Slide Review Reflex No
[2024-08-23 06:27] LABS: Blood Urea Nitrogen* 3 mg/dL (5-24); Creatinine* 0.5 mg/dL (0.5-1.5); Est. Creatinine Clearance* 113.88; Estimated Glomerular Filt Rate 126 ml/min
[2024-08-23 06:28] LABS: Alanine Aminotransferase* 28 U/L (4-35); Alkaline Phosphatase* 102 U/L (40-150); Aspartate Amino Transferase* 25 U/L (12-35); Bilirubin Total* 0.7 mg/dL (0.1-1.5); Carbon Dioxide* 25 mmol/L (20-32); Total Protein* 6.3 g/dL (6.0-8.3)
[2024-08-23 06:29] LABS: Calcium* 8.4 mg/dL (8.4-10.6); Glucose* 82 mg/dL (60-115)
[2024-08-23 06:30] LABS: Anion Gap 6 mEq/L (7-15)
[2024-08-23 06:43] LABS: C Reactive Protein* 23.8 mg/dL (0.5-1.0)
[2024-08-23] MEDS: lisinopriL 10 MG TABLET PO (08:36)
[2024-08-23] MEDS: CETIRIZINE HCL 10 MG TABLET PO (08:36)
[2024-08-23] MEDS: OMEPRAZOLE 20 MG CAPSULE DR 40 MG PO (08:36)
[2024-08-23] MEDS: GABAPENTIN 600 MG TABLET PO (08:36)
[2024-08-23] MEDS: PANTOPRAZOLE SODIUM 40 MG INJ IVP ×2 (08:36→20:38)
[2024-08-23] MEDS: NICOTINE 14 mg PATCH 1 PATCH TRANSDERMA (08:37)
[2024-08-23] MEDS: SODIUM CHLORIDE 0.9 % (FLUSH) 10 ML SYRINGE 5 ML IVF ×2 (08:37→20:38)
[2024-08-23] MEDS: ARIPiprazole 10 MG TABLET 2.5 MG PO (08:59)
[2024-08-23] MEDS: ENOXAPARIN 40 MG/0.4 ML INJ SUBCUT (11:02)
--- NOTE | 2024-08-23 11:37 | P.IMPN_ITS ---
Assessment and Plan Assessment and plan (1) Duodenitis: Problem comment: CT shows inflammatory changes at the duodenum and pancreatic area. No pneumoperitoneum. CT abd repeated on 08/20 that showed further extension of the inflammation to Rt pericolic gutter + increased free fluid in the abdomen, but no perforation or abscess collection. Patient states that she takes NSAIDs almost every day for years. She denies any hx of blood in the stool or any history of black stools or melena and no history of peptic ulcer disease, no history of previous upper endoscopies or hx of H pylori infection per the patient. Cont trending CRP. H Pylori Ag test ordered. NPO Continue Zosyn (started 08/20), patient is had fever Continue Vanc (started 08/21). Ordered blood cultures and MRSA screen 08/21. Cont intravenous PPI IV fluids and IV pain medications. Gen Sx consulted. Conservative management for now Status: Acute (2) Sepsis: Problem comment: Pt met sepsis criteria on admission w/ WBC @ 19K and tachycardia 111. Developed fever. IVF bolus given + Abx started LA WNL Bl Cx ordered, F/Up Status: Acute (3) Pancreatitis: Problem comment: Inflammatory changes most likely due to duodenitis rather than primary pancreatitis NL Lipase Status: Suspected (4) Leukocytosis: Problem comment: Urinalysis is negative Infection V/S reactive Ordered Bl Cx Continue trending Status: Acute (5) Transaminitis: Problem comment: Mild, chronic Patient will need outpatient follow-up Status: Chronic (6) GERD (gastroesophageal reflux disease): Problem comment: On omeprazole at home Status: Acute (7) Hypertension: Problem comment: Resume lisinopril Status: Acute (8) Asthma: Problem comment: Resume home inhalers Status: Acute (9) Obesity: Status: Acute (10) Tobacco abuse disorder: Problem comment: Ordered nicotine patch Status: Chronic (11) History of methamphetamine abuse: Status: Acute (12) Generalized anxiety disorder: Status: Acute Total Time Spent Total Time Spent: Today I spent 50 minutes seeing the patient, reviewing Expanse and EPIC notes/diagnostics, discussing the care plan with our care time that includes social work, PT/OT, pharmacy, RT, half-way and documenting my impressions and plan in the medical record. Subjective Date Seen: 08/23/24 Interval history: Overnight, patient was afebrile and not tachycardic. Patient was seen and examined at bedside today. Patient feels much better her pain decreased from 7- 9/10 to 3/10. She is tolerating clear liquid diet, she states that she is ready for advancing her diet to full liquid. Exam Narrative: Exam Narrative: Physical exam GENERAL: Comfortable, no acute distress. HEAD AND NECK: Atraumatic, normocephalic CARDIOVASCULAR: RRR. Normal S1, S2. No murmurs. RESPIRATORY: Clear to auscultation B/L. Good air entry B/L. No wheezes or rhonchi. GASTROINTESTINAL: Not distended,tender to palpation lower abdomen. NEUROLOGY: Alert, awake, oriented X 3. Normal speech. PSYCH: Normal mood, normal affect. Const: Vital Signs, click to edit/add: Vital Signs - 24 hr 08/22/24 15:30 08/22/24 15:30 08/22/24 16:00 Temperature 99.5 F 99.0 F Pulse Rate [Pulse Oximeter] 100 99 100 Respiratory Rate 18 18 18 Blood Pressure [Ri ght Arm] 123/79 126/76 Pulse Oximetry 92 92 Oxygen Delivery Me thod Room Air Room Air 08/22/24 19:39 08/22/24 21:46 08/22/24 23:20 Temperature 98.6 F 98.7 F Pulse Rate [Pulse Oximeter] 94 94 86 Respiratory Rate 18 18 18 Blood Pressure [Ri ght Arm] 126/88 108/64 Pulse Oximetry 94 92 Oxygen Delivery Me thod Room Air Room Air 08/23/24 02:43 08/23/24 07:45 08/23/24 10:49 Temperature 98.8 F 98.4 F 98.5 F Pulse Rate [Pulse Oximeter] 95 77 91 Respiratory Rate 16 16 16 Blood Pressure [Ri ght Arm] 107/65 116/75 127/87 Pulse Oximetry 95 96 94 Oxygen Delivery Me thod Room Air Room Air Room Air Labs Labs: Laboratory Results - last 24 hr 08/23/24 05:30 WBC 15.52 H RBC 3.05 L Hgb 8.9 L Hct 26.3 L MCV 86 MCH 29 MCHC 34 RDW Coeff of [place] 12.8 Plt Count 289 Neut % (Auto) 69.2 Lymph % (Auto) 15.5 L [place] % (Auto) 11.1 H Eos % (Auto) 2.9 Baso % (Auto) 0.2 Neut # (Auto) 10.70 H Lymph # (Auto) 2.40 [place] # (Auto) 1.70 H Eos # (Auto) 0.50 Baso # (Auto) 0.00 Abs Immat Gran (auto) 0.20 Imm/Tot Granulo (auto) 1.1 Sodium 136 Potassium 3.2 L Chloride 105 Carbon Dioxide 25 Anion Gap 6 L BUN 3 L Creatinine 0.5 Estimated Creat Clear 113.88 Estimated GFR 126 Glucose 82 Calcium 8.4 Total Bilirubin 0.7 AST 25 ALT 28 Alkaline Phosphatase 102 C-Reactive Protein 23.8 H Total Protein 6.3 Albumin 3.2 L
--- NOTE | 2024-08-23 16:29 | PM.GSPN ---
Subjective Subjective Date Seen: 08/23/24 Interval history: Patient feels like she is doing better today. She still has pain, but it is becoming lasts. She tolerated clear liquids without difficulty. Denies any nausea or vomiting. No other concerns. Exam Narrative: Exam Narrative: General: Alert and oriented, nontoxic Abdomen: Soft, some diffuse tenderness with palpation, no guarding or rebound. Mild distention. Const: Vital Signs, click to edit/add: Vital Signs - 24 hr 08/22/24 19:39 08/22/24 21:46 08/22/24 23:20 Temperature 98.6 F 98.7 F Pulse Rate [Pulse Oximeter] 94 94 86 Respiratory Rate 18 18 18 Blood Pressure [Ri ght Arm] 126/88 108/64 Pulse Oximetry 94 92 Oxygen Delivery Me thod Room Air Room Air 08/23/24 02:43 08/23/24 07:45 08/23/24 10:49 Temperature 98.8 F 98.4 F 98.5 F Pulse Rate [Pulse Oximeter] 95 77 91 Respiratory Rate 16 16 16 Blood Pressure [Ri ght Arm] 107/65 116/75 127/87 Pulse Oximetry 95 96 94 Oxygen Delivery Me thod Room Air Room Air Room Air 08/23/24 15:00 08/23/24 15:00 Temperature 98.3 F Pulse Rate [Pulse Oximeter] 91 90 Respiratory Rate 16 16 Blood Pressure [Ri ght Arm] 133/97 H Pulse Oximetry 95 Oxygen Delivery Me thod Room Air Labs/Imaging Labs Labs: Leukocytosis (15), hemoglobin 8.9. CRP 23 Imaging Imaging: No new imaging Progress Note:A&P Assessment and plan (1) Duodenitis: Status: Acute Assessment and Plan: Patient HD#5. Continues to be afebrile. Inflammatory markers are trending down and her exam is slightly improved from a compared to yesterday. Continues to need narcotic pain medicine, but less IV throughout the day today. She has been tolerating clear liquids. -okay to advance to full liquids this evening -DC IV fluids -IV and po narcotics -IV PPI, oral sucralfate -IV Zosyn, vancomycin added by hospitalist who is continuing to follow. Would recommend that patient complete a course of treatment for H pylori. A stool sample was requested but is still pending. -encourage ambulation -SCDs for DVT prophylaxis, okay for Lovenox Anticipate discharge in the next 1-2 days. I did discuss with the patient that she should continue to avoid NSAIDs, aspirin, alcohol and counseled her regarding smoking cessation. Would recommend that she have an upper endoscopy as an outpatient, 6-8 weeks after this hospital stay. She should continue on a PPI and complete a course of antibiotics to treat for H pylori.
[2024-08-23] MEDS: 0.9 % SODIUM CHLORIDE 250 ml IV (17:06)
--- NOTE | 2024-08-23 18:35 | PC.NURSE ---
Pt pleasant and cooperative today. VSS. Afebrile. Pain was effectively controlled with PRN medications. Saline locked. Advanced to full liquid diet and tolerating well. Pt walked in the sanchez once this shift and tolerated fairly well. Pt is in good spirits this evening.
[2024-08-23] MEDS: POTASSIUM CHLORIDE 10 MEQ/100 ML PIGGYBACK 100 MEQ IVPB ×2 (18:39→19:50)
[2024-08-23] MEDS: QUETIAPINE 100 MG TABLET PO (20:38)
[2024-08-23] MEDS: cloNIDine HCL 0.1 MG TABLET 0.2 MG PO (20:39)
[2024-08-23] MEDS: GABAPENTIN 300 MG CAPSULE 900 MG PO (20:40)
--- NOTE | 2024-08-23 22:47 | PC.NURSE ---
BG upon Admission was 153.
--- NOTE | 2024-08-23 22:48 | PC.NURSE ---
Previous note was for a different PT
[2024-08-24] MEDS: VANCOMYCIN 1.25 GM/250 ML 1.25 GM/250 ML PIGGYBACK IVPB (02:02)
[2024-08-24] MEDS: SODIUM CHLORIDE 0.9 % (FLUSH) 10 ML SYRINGE IVF (02:02)
[2024-08-24] MEDS: MORPHINE 2 MG/ML inj IVP ×2 (02:02→06:18)
[2024-08-24 02:11] VITALS: BP 103/68; PULSE 87; RESP 18; TEMP 36.6; O2SAT 94
[2024-08-24] MEDS: ALBUTEROL SULFATE 2.5 MG/3 ML VIAL.NEB NEB (02:15)
[2024-08-24] MEDS: SUCRALFATE 1 GM TABLET PO ×3 (02:15→17:58)
[2024-08-24] MEDS: PIPERACILLIN/TAZOBACTAM 3.375 GM in 0.9 % SODIUM CHLORIDE Mini-bag 100 ML IVPB ×4 (04:44→23:38)
[2024-08-24] MEDS: OXYCODONE 5 MG TABLET PO ×4 (04:44→19:29)
[2024-08-24 06:34] LABS: Basophils Percent Auto 0.3 % (0.0-3.0); Hematocrit 29.2 % (33.0-51.0); Immature Granulocytes Pct Auto 1.3 %; Lymphocytes Percent Auto 11.8 % (20-44); Mean Corpuscular HGB Conc 34 gm/dL (32-36); Mean Corpuscular Hemoglobin 29 pg (26-34); Mean Corpuscular Volume 85 fL (80-100); Monocytes Percent Auto 10.3 % (0.0-11.0); Neutrophils Percent Auto 73.3 % (42.0-72.0); Platelet Count* 299 K/uL (140-440); RDW Coefficient of Variation % 12.7 % (11.5-15.5); Red Blood Count 3.43 m/uL (4.00-5.20); White Blood Count* 14.35 K/uL (4.50-11.00)
[2024-08-24 06:35] LABS: Slide Review Reflex No
[2024-08-24 06:45] LABS: Albumin* 3.2 g/dL (3.3-5.0); Chloride* 105 mmol/L (96-114); Potassium* 3.3 mmol/L (3.6-5.1); Sodium* 138 mmol/L (135-149)
[2024-08-24 06:47] LABS: Blood Urea Nitrogen* 3 mg/dL (5-24); Creatinine* 0.5 mg/dL (0.5-1.5); Est. Creatinine Clearance* 113.88; Estimated Glomerular Filt Rate 126 ml/min
[2024-08-24 06:48] LABS: Alanine Aminotransferase* 24 U/L (4-35); Alkaline Phosphatase* 107 U/L (40-150); Anion Gap 7 mEq/L (7-15); Aspartate Amino Transferase* 24 U/L (12-35); Bilirubin Total* 0.6 mg/dL (0.1-1.5); Carbon Dioxide* 26 mmol/L (20-32); Total Protein* 6.3 g/dL (6.0-8.3)
[2024-08-24 06:49] LABS: Calcium* 8.5 mg/dL (8.4-10.6); Glucose* 92 mg/dL (60-115)
[2024-08-24 07:00] VITALS: BP 125/88; PULSE 85; RESP 16; TEMP 36.8; O2SAT 95
[2024-08-24 07:23] LABS: C Reactive Protein* 17.7 mg/dL (0.5-1.0)
[2024-08-24] MEDS: POTASSIUM CHLORIDE 10 MEQ CAPSULE ER 40 MEQ PO (09:24)
[2024-08-24] MEDS: OMEPRAZOLE 20 MG CAPSULE DR 40 MG PO (09:24)
[2024-08-24] MEDS: lisinopriL 10 MG TABLET PO (09:25)
[2024-08-24] MEDS: GABAPENTIN 600 MG TABLET PO (09:25)
[2024-08-24] MEDS: CETIRIZINE HCL 10 MG TABLET PO (09:26)
[2024-08-24] MEDS: ARIPiprazole 10 MG TABLET 2.5 MG PO (09:26)
[2024-08-24] MEDS: PANTOPRAZOLE SODIUM 40 MG INJ IVP (09:31)
[2024-08-24] MEDS: NICOTINE 14 mg PATCH 1 PATCH TRANSDERMA (09:32)
[2024-08-24] MEDS: SODIUM CHLORIDE 0.9 % (FLUSH) 10 ML SYRINGE 5 ML IVF ×2 (09:32→20:40)
--- NOTE | 2024-08-24 10:24 | P.IMPN_ITS ---
Assessment and Plan Assessment and plan (1) Duodenitis: Problem comment: Improving CT shows inflammatory changes at the duodenum and pancreatic area. No pneumoperitoneum. CT abd repeated on 08/20 that showed further extension of the inflammation to Rt pericolic gutter + increased free fluid in the abdomen, but no perforation or abscess collection. Patient states that she takes NSAIDs almost every day for years. She denies any hx of blood in the stool or any history of black stools or melena and no history of peptic ulcer disease, no history of previous upper endoscopies or hx of H pylori infection per the patient. Cont trending CRP. H Pylori Ag test ordered. Gen Sx consulted. Conservative management for now Continue Zosyn (started 08/20), patient is had a fever DC Vanc ( 08/21- 08/24). Blood cultures negative till today Negative MRSA screen Cont intravenous PPI DC IV fluids DC IV pain medications and start her on p.o. pain medication. Advance her diet to regular/soft diet Status: Acute (2) Sepsis: Problem comment: Pt met sepsis criteria on admission w/ WBC @ 19K and tachycardia 111. Developed fever. IVF bolus given + Abx started LA WNL Bl Cx ordered, F/Up Status: Resolved (3) Pancreatitis: Problem comment: Inflammatory changes most likely due to duodenitis rather than primary pancreatitis NL Lipase Status: Suspected (4) Leukocytosis: Problem comment: Urinalysis is negative Infection V/S reactive Ordered Bl Cx Continue trending Status: Acute (5) Transaminitis: Problem comment: Mild, chronic Patient will need outpatient follow-up Status: Chronic (6) GERD (gastroesophageal reflux disease): Problem comment: On omeprazole at home Status: Acute (7) Hypertension: Problem comment: Resume lisinopril Status: Acute (8) Asthma: Problem comment: Resume home inhalers Status: Acute (9) Obesity: Status: Acute (10) Tobacco abuse disorder: Problem comment: Ordered nicotine patch Status: Chronic (11) History of methamphetamine abuse: Status: Acute (12) Generalized anxiety disorder: Status: Acute Total Time Spent Total Time Spent: Today I spent 50 minutes seeing the patient, reviewing Expanse and EPIC notes/diagnostics, discussing the care plan with our care time that includes social work, PT/OT, pharmacy, RT, senior living and documenting my impressions and plan in the medical record. Subjective Date Seen: 08/24/24 Interval history: Overnight, patient was afebrile and not tachycardic. Patient was seen and examined at bedside today. Patient feels much better. She is tolerating full liquid diet, she states that she is ready for advancing her diet to regular diet. No BM. Exam Narrative: Exam Narrative: Physical exam GENERAL: Comfortable, no acute distress. HEAD AND NECK: Atraumatic, normocephalic CARDIOVASCULAR: RRR. Normal S1, S2. No murmurs. RESPIRATORY: Clear to auscultation B/L. Good air entry B/L. No wheezes or rh onchi. GASTROINTESTINAL: Not distended, mildly tender to palpation. NEUROLOGY: Alert, awake, oriented X 3. Normal speech. No focal weakness. PSYCH: Normal mood, normal affect. Const: Vital Signs, click to edit/add: Vital Signs - 24 hr 08/23/24 10:49 08/23/24 15:00 08/23/24 15:00 Temperature 98.5 F 98.3 F Pulse Rate [Pulse Oximeter] 91 91 90 Respiratory Rate 16 16 16 Blood Pressure [Ri ght Arm] 127/87 133/97 H Pulse Oximetry 94 95 Oxygen Delivery Me thod Room Air Room Air 08/23/24 19:03 08/23/24 19:05 08/23/24 22:09 Temperature 98.3 F 98.3 F 98.3 F Pulse Rate [Pulse Oximeter] 86 Respiratory Rate 16 Blood Pressure [Ri ght Arm] 129/99 H Pulse Oximetry 96 Oxygen Delivery Me thod Room Air 08/23/24 22:16 08/23/24 22:21 08/24/24 02:11 Temperature 97.1 F L 98 F Pulse Rate [Pulse Oximeter] 85 85 87 Respiratory Rate 16 16 18 Blood Pressure [Ri ght Arm] 107/68 103/68 Pulse Oximetry 95 94 Oxygen Delivery Me thod Room Air Room Air Labs Labs: Laboratory Results - last 24 hr 08/24/24 06:00 WBC 14.35 H RBC 3.43 L Hgb 10.0 L Hct 29.2 L MCV 85 MCH 29 MCHC 34 RDW Coeff of [place] 12.7 Plt Count 299 Neut % (Auto) 73.3 H Lymph % (Auto) 11.8 L [place] % (Auto) 10.3 Eos % (Auto) 3.0 Baso % (Auto) 0.3 Neut # (Auto) 10.50 H Lymph # (Auto) 1.70 [place] # (Auto) 1.50 H Eos # (Auto) 0.40 Baso # (Auto) 0.00 Abs Immat Gran (auto) 0.20 Imm/Tot Granulo (auto) 1.3 Sodium 138 Potassium 3.3 L Chloride 105 Carbon Dioxide 26 Anion Gap 7 BUN 3 L Creatinine 0.5 Estimated Creat Clear 113.88 Estimated GFR 126 Glucose 92 Calcium 8.5 Total Bilirubin 0.6 AST 24 ALT 24 Alkaline Phosphatase 107 C-Reactive Protein 17.7 H Total Protein 6.3 Albumin 3.2 L
[2024-08-24] MEDS: ENOXAPARIN 40 MG/0.4 ML INJ SUBCUT (10:50)
[2024-08-24] MEDS: ACETAMINOPHEN 325 MG TABLET 650 MG PO ×2 (10:51→20:40)
[2024-08-24 11:00] VITALS: BP 133/89; PULSE 99; RESP 18; TEMP 36.4; O2SAT 95
--- NOTE | 2024-08-24 12:23 | PM.GSPN ---
Subjective Subjective Date Seen: 08/24/24 Interval history: The patient is feeling much better today. She tolerated a full liquid diet yesterday and would like to eat regular food today. She states that she really only has pain if she lays on her side. No bowel movement yet. No nausea. She states that she thinks she may have had symptoms going on for longer as she has had some intolerance to eating and early satiety in the past month or so. Exam Narrative: Exam Narrative: General: No acute distress Abdomen: Soft, mildly tender in epigastric region. No guarding. Const: Vital Signs, click to edit/add: Vital Signs - 24 hr 08/23/24 15:00 08/23/24 15:00 08/23/24 19:03 Temperature 98.3 F 98.3 F Pulse Rate [Pulse Oximeter] 91 90 86 Respiratory Rate 16 16 16 Blood Pressure [Ri ght Arm] 133/97 H 129/99 H Pulse Oximetry 95 96 Oxygen Delivery Me thod Room Air Room Air 08/23/24 19:05 08/23/24 22:09 08/23/24 22:16 Temperature 98.3 F 98.3 F 97.1 F L Pulse Rate [Pulse Oximeter] 85 Respiratory Rate 16 Blood Pressure [Ri ght Arm] 107/68 Pulse Oximetry 95 Oxygen Delivery Me thod Room Air 08/23/24 22:21 08/24/24 02:11 08/24/24 07:00 Temperature 98 F 98.3 F Pulse Rate [Pulse Oximeter] 85 87 85 Respiratory Rate 16 18 16 Blood Pressure [Ri ght Arm] 103/68 125/88 Pulse Oximetry 94 95 Oxygen Delivery Me thod Room Air Room Air 08/24/24 07:00 Temperature Pulse Rate [Pulse Oximeter] 85 Respiratory Rate 16 Blood Pressure [Ri ght Arm] Pulse Oximetry Oxygen Delivery Me thod Labs/Imaging Labs Labs: White blood cell count is 14 from 15 yesterday. Hemoglobin is stable at 10. CRP is down to 17 from 43 on 08/22. Progress Note:A&P Assessment and plan (1) Duodenitis: Status: Acute Plan Patient has improved - unclear cause for severe duodenitis. - Recommend stopping vancomycin. - Continue Zosyn until we are able to to test for H pylori. - If unable to obtain a stool sample, considered treating empirically upon discharge. - Continue PPI after discharge. - Recommended outpatient EGD in 4 weeks. - She should continue to avoid NSAIDs, aspirin and alcohol.
[2024-08-24 15:00] VITALS: BP 130/77; PULSE 93; RESP 18; TEMP 36.9; O2SAT 98
--- NOTE | 2024-08-24 18:07 | PC.NURSE ---
End of shift note: VS WNL. Afebrile. Patient rates pain from 8-6 in RUQ. Pain meds offered and given with relief. Ind in room. Denies N/V. Tolerating reg diet. BS are active. Pt had small BM today. Jose Enrique patch on left shoulder. IV SL in R AC. Encouraged pt to ambulate hallways.
[2024-08-24 19:00] VITALS: BP 145/104; PULSE 92; RESP 18; TEMP 37.4; O2SAT 100
[2024-08-24] MEDS: cloNIDine HCL 0.1 MG TABLET 0.2 MG PO (20:39)
[2024-08-24] MEDS: QUETIAPINE 100 MG TABLET PO (20:39)
[2024-08-24] MEDS: hydrOXYzine pamoate 25 MG CAPSULE PO (20:39)
[2024-08-24] MEDS: GABAPENTIN 300 MG CAPSULE 900 MG PO (20:39)
[2024-08-24 21:33] LABS: H pylori Ag Stool* POSITIVE (Negative)
[2024-08-24 23:00] VITALS: BP 119/72; PULSE 76; PULSE 92; RESP 16; RESP 18; O2SAT 94
[2024-08-24] MEDS: 0.9 % SODIUM CHLORIDE 250 ml IV (23:38)
[2024-08-24] MEDS: MELATONIN 3 MG TABLET PO (23:38)
[2024-08-25 03:00] VITALS: BP 134/93; PULSE 76; RESP 16; O2SAT 97
[2024-08-25] MEDS: SUCRALFATE 1 GM TABLET PO ×2 (03:57→10:34)
[2024-08-25] MEDS: OXYCODONE 5 MG TABLET PO ×3 (03:59→12:05)
[2024-08-25] MEDS: PIPERACILLIN/TAZOBACTAM 3.375 GM in 0.9 % SODIUM CHLORIDE Mini-bag 100 ML IVPB ×2 (05:24→10:33)
[2024-08-25 06:40] LABS: Hemoglobin* 9.6 gm/dL (12.0-16.0); Mean Corpuscular HGB Conc 34 gm/dL (32-36); Mean Corpuscular Hemoglobin 29 pg (26-34); Mean Corpuscular Volume 85 fL (80-100); Platelet Count* 331 K/uL (140-440); Red Blood Count 3.29 m/uL (4.00-5.20)
--- NOTE | 2024-08-25 06:42 | PC.NURSE ---
Pt alert, oriented and vitally stable. Pt rated pain 6-7/10 throughout shift, prn oxy given. Pt stated feeling itchy after pain medication, MD notified (Verma) prn hydroxyzine given, pt stated improvement. Bowel sounds active in all quadrants. Pt up independently, tolerates well. Pt in bed, appears to be resting, call light within reach.?
[2024-08-25 06:45] LABS: Slide Review Reflex No
[2024-08-25 06:56] LABS: Albumin* 3.4 g/dL (3.3-5.0); Chloride* 104 mmol/L (96-114); Sodium* 135 mmol/L (135-149)
[2024-08-25 06:57] LABS: Potassium* 3.5 mmol/L (3.6-5.1)
[2024-08-25 06:59] LABS: Blood Urea Nitrogen* 7 mg/dL (5-24); Creatinine* 0.5 mg/dL (0.5-1.5); Est. Creatinine Clearance* 113.88; Estimated Glomerular Filt Rate 126 ml/min
[2024-08-25 07:00] VITALS: BP 125/80; PULSE 84; RESP 18; TEMP 37.1; O2SAT 97
[2024-08-25 07:00] LABS: Alanine Aminotransferase* 26 U/L (4-35); Alkaline Phosphatase* 127 U/L (40-150); Anion Gap 7 mEq/L (7-15); Aspartate Amino Transferase* 28 U/L (12-35); Bilirubin Total* 0.4 mg/dL (0.1-1.5); Calcium* 8.5 mg/dL (8.4-10.6); Carbon Dioxide* 24 mmol/L (20-32); Glucose* 92 mg/dL (60-115); Total Protein* 6.5 g/dL (6.0-8.3)
[2024-08-25 07:16] LABS: C Reactive Protein* 12.9 mg/dL (0.5-1.0)
[2024-08-25] MEDS: PANTOPRAZOLE SODIUM 40 MG INJ IVP (08:17)
[2024-08-25] MEDS: NICOTINE 14 mg PATCH 1 PATCH TRANSDERMA (08:18)
[2024-08-25] MEDS: CETIRIZINE HCL 10 MG TABLET PO (08:19)
[2024-08-25] MEDS: lisinopriL 10 MG TABLET PO (08:19)
[2024-08-25] MEDS: OMEPRAZOLE 20 MG CAPSULE DR 40 MG PO (08:19)
[2024-08-25] MEDS: SODIUM CHLORIDE 0.9 % (FLUSH) 10 ML SYRINGE 5 ML IVF (08:21)
[2024-08-25] MEDS: GABAPENTIN 600 MG TABLET PO (08:21)
[2024-08-25] MEDS: ARIPiprazole 10 MG TABLET 2.5 MG PO (08:26)
[2024-08-25] MEDS: POTASSIUM CHLORIDE 10 MEQ CAPSULE ER 20 MEQ PO (10:09)
[2024-08-25] MEDS: ENOXAPARIN 40 MG/0.4 ML INJ SUBCUT (10:34)
--- NOTE | 2024-08-25 11:25 | P.DS_ITS ---
DS: Providers Provider Date Seen: 08/25/24 Date of admission: 08/19/24 15:30 Primary care physician: Cuong Mayes MD Admitting Clinician: Myke Verma MD Consults: 08/19/24 15:37 Consult to Physician [CONS] Urgent Comment: Consulting Provider: Carly Dobbins Has provider been notified: Yes Attending Physician on discharge: Ivett Knox MD DS: Diagnosis Discharge Diagnosis (1) Duodenitis: Status: Acute Problem details: Improved, tolerating regular diet without issues CT shows inflammatory changes at the duodenum and pancreatic area. No pneumoperitoneum. CT abd repeated on 08/20 that showed further extension of the inflammation to Rt pericolic gutter + increased free fluid in the abdomen, but no perforation or abscess collection. Patient states that she takes NSAIDs almost every day for years. She denies any hx of blood in the stool or any history of black stools or melena and no history of peptic ulcer disease, no history of previous upper endoscopies or hx of H pylori infection per the patient. Cont trending CRP. Gen Sx consulted. Conservative management for now DC Zosyn (started 08/20), patient is had a fever DC Vanc ( 08/21- 08/24). Blood cultures negative till today Negative MRSA screen Cont intravenous PPI DC IV fluids DC IV pain medications and start her on p.o. pain medication. Advance her diet to regular/soft diet H Pylori Ag test was found positive, will treat patient with triple therapy twice a day for 14 days. Discussed with the patient the need for strict compliance and to follow up with her primary care physician to check for eradication of H pylori 4-6 weeks after stopping medication. Also discussed with her the need to discuss with primary care physician the need to be referred to a GI doctor for endoscopy given her severe duodenitis. (2) Sepsis: Status: Resolved Problem details: Pt met sepsis criteria on admission w/ WBC @ 19K and tachycardia 111. Developed fever. IVF bolus given + Abx started LA WNL Bl Cx ordered, F/Up (3) Pancreatitis: Status: Suspected Problem details: Inflammatory changes most likely due to duodenitis rather than primary pancreatitis NL Lipase (4) Leukocytosis: Status: Acute Problem details: Urinalysis is negative Infection V/S reactive Ordered Bl Cx Continue trending (5) Transaminitis: Status: Resolved Problem details: Mild, chronic Patient will need outpatient follow-up (6) GERD (gastroesophageal reflux disease): Status: Acute Problem details: On omeprazole at home (7) Hypertension: Status: Acute Problem details: Resume lisinopril (8) Asthma: Status: Acute Problem details: Resume home inhalers (9) Obesity: Status: Acute (10) Tobacco abuse disorder: Status: Chronic Problem details: Ordered nicotine patch (11) History of methamphetamine abuse: Status: Acute (12) Generalized anxiety disorder: Status: Acute DS: Summary Hospital Course Hospital Course: A 33-year-old female patient who presented to the ED with severe abdominal pain that was likely due to duodenitis. Patient was admitted and General surgery were consulted. CT shows inflammatory changes at the duodenum and pancreatic area. No pneumoperitoneum. CT abd repeated on 08/20 that showed further extension of the inflammation to Rt pericolic gutter + increased free fluid in the abdomen, but no perforation or abscess collection. Patient was treated with IV antibiotics in addition to PPI IV and IV fluids, it took a few days until patient improved and was able to tolerate regular diet. H Pylori Ag test was found positive, will treat patient with triple therapy tw ice a day for 14 days. Discussed with the patient the need for strict compliance and to follow up with her primary care physician to check for eradication of H pylori 4-6 weeks after stopping medication. Also discussed with her the need to discuss with primary care physician the need to be referred to a GI doctor for endoscopy given her severe duodenitis. Status at Discharge Functional status at discharge: independent ambulation Overall status at discharge: patient is progressing back to baseline Time Spent with Patient Time attestation: Total time spent providing and/or coordinating discharge services: 60 Exam Narrative: Exam Narrative: Physical exam GENERAL: Comfortable, no acute distress. HEAD AND NECK: Atraumatic, normocephalic CARDIOVASCULAR: RRR. Normal S1, S2. No murmurs. RESPIRATORY: Clear to auscultation B/L. Good air entry B/L. No wheezes or rhonchi. GASTROINTESTINAL: Not distended, not tender to palpation. NEUROLOGY: Alert, awake, oriented X 3. Normal speech. PSYCH: Normal mood, normal affect. Const: Vital Signs, click to edit/add: Vital Signs - 24 hr 08/24/24 15:00 08/24/24 15:00 08/24/24 19:00 Temperature 98.5 F 99.4 F Pulse Rate [Pulse Oximeter] 93 93 92 Respiratory Rate 18 18 18 Blood Pressure [Ri ght Arm] 130/77 145/104 H Pulse Oximetry 98 100 Oxygen Delivery Me thod Room Air Room Air 08/24/24 23:00 08/24/24 23:00 08/25/24 03:00 Temperature Pulse Rate [Pulse Oximeter] 92 76 76 Respiratory Rate 18 16 16 Blood Pressure [Ri ght Arm] 119/72 134/93 H Pulse Oximetry 94 97 Oxygen Delivery Me thod Room Air Room Air 08/25/24 07:00 08/25/24 07:00 Temperature 98.7 F Pulse Rate [Pulse Oximeter] 84 84 Respiratory Rate 18 18 Blood Pressure [Ri ght Arm] 125/80 Pulse Oximetry 97 Oxygen Delivery Me thod Room Air DS: Data Data Completed and Pending Labs on day of discharge: Labs from last 24 hours 08/25/24 08/24/24 06:14 17:01 WBC 12.90 H RBC 3.29 L Hgb 9.6 L Hct 28.0 L MCV 85 MCH 29 MCHC 34 Plt Count 331 Sodium 135 Potassium 3.5 L Chloride 104 Carbon Dioxide 24 Anion Gap 7 BUN 7 Creatinine 0.5 Estimated Creat Clear 113.88 Estimated GFR 126 Glucose 92 Calcium 8.5 Total Bilirubin 0.4 AST 28 ALT 26 Alkaline Phosphatase 127 C-Reactive Protein 12.9 H Total Protein 6.5 Albumin 3.4 Stool H. pylori Ag POSITIVE A Preliminary micro results at discharge 08/21/24 08:33 Blood Culture - Preliminary Blood NO GROWTH AFTER 96 HOURS 08/21/24 08:37 Blood Culture - Preliminary Blood NO GROWTH AFTER [address] scan - abdomen: Radiologist's impression: ndication: Worsening abdominal pain Technique: CT through the abdomen and pelvis following 102 mL Isovue 370 IV contrast Comparison: CT abdomen and pelvis performed prior day Findings: Lower chest: Trace right effusion. Hepatobiliary: No significant parenchymal abnormality is appreciated. Cholecystectomy. Spleen: Unremarkable. Pancreas: Evolving peripancreatic inflammatory changes and inflammatory changes along the right upper quadrant. No significant parenchymal abnormality appreciated. Adrenal glands: No acute abnormality appreciated. Kidneys: No significant parenchymal abnormality appreciated. No visualized calculi. No hydronephrosis. Bowel: No obstruction. Unchanged duodenal wall thickening. Vascular: No acute abnormality appreciated. Lymph nodes: No gross lymphadenopathy. Peritoneum: Increasing stranding and free fluid in the right abdomen. : No acute abnormality appreciated. Soft tissues: No acute abnormality appreciated. Bones: No acute fracture. No lytic or blastic lesion. Impression: Redemonstration of extensive inflammatory stranding and free fluid centered along the proximal pancreas/duodenum. Compared to prior examination, there is increased stranding extending along the right pericolic gutter and slight increased free fluid, otherwise no significant interval change is appreciated with no organized fluid collection or significant parenchymal hypoenhancement of the pancreas. Please note that all CT scans at this facility use dose modulation, iterative reconstruction, and/or weight-based dosing when appropriate to reduce radiation dose to as low as reasonably achievable. Dictated by Liu Rahman MD @ 08/20/2024 9:44:12 PM Discharge Plan Discharge Disposition: Home, Self-Care Date of Admission: 08/19/24 15:30 Attending Provider on Discharge: Ivett Knox Consulting Providers: Carly Dobbins Primary Care Provider: Cuong Mayes Condition: Improved Anticipated Discharge Date/Time: 08/25/24 10:51 Discharge Medications: New acetaminophen 325 mg Tablet 650 mg PO Q8H PRN15 Days Qty: 45 0RF vonoprazan 20 mg tablet 20 mg PO BID 14 Days Qty: 28 0RF oxycodone 5 mg capsule 5 mg PO Q8H PRN (Reason: pain) Qty: 9 0RF amoxicillin 500 mg capsule 1,000 mg PO BID 14 Days Qty: 56 0RF clarithromycin 500 mg tablet 500 mg PO BID 14 Days Qty: 28 0RF Continued cholecalciferol (vitamin D3) 25 mcg (1,000 unit) capsule 75 mcg PO DAILY nicotine 14 mg/24 hr patch 24 hour 1 patch topical DAILY lisinopril 10 mg tablet 10 mg PO DAILY aripiprazole 2 mg tablet 2 mg PO DAILY albuterol sulfate 2.5 mg /3 mL (0.083 %) solution for nebulization 2.5 mg continuous nebulization Q4H PRN cetirizine 10 mg tablet 10 mg PO DAILY quetiapine 100 mg tablet 100 mg PO HS clonidine HCl 0.2 mg tablet 0.2 mg PO HS dextroamphetamine-amphetamine 20 mg tablet 1 tab PO DAILY gabapentin 300 mg capsule 600 - 900 mg PO BID Rx Instructions: 600MG AM, 900MG HS albuterol sulfate [Ventolin HFA] 90 mcg/actuation HFA aerosol inhaler 2 puff inhalation Q4H PRN (Reason: wheezing) ferrous sulfate 325 mg (65 mg iron) tablet,delayed release (DR/EC) 325 mg PO HS etonogestrel-ethinyl estradiol [EluRyng] 0.12-0.015 mg/24 hr ring 1 vag ring vaginal Q21D Discontinued omeprazole 40 mg capsule,delayed release(DR/EC) 40 mg PO DAILY Discharge Orders: Discharge Order (Routine); Ordered 08/25/24 Ordered By: Ivett Knox Patient Education: Acetaminophen (By mouth), Amoxicillin (By mouth), Clarithromycin (By mouth), Oxycodone, Rapid Release (By mouth), Vonoprazan (By mouth), Duodenitis (DC) Additional Instructions: -You need to follow-up with your primary care physician within 1-2 weeks after discharge to discuss multiple issues including the following: -you were found to have H pylori infection that has caused severe duodenitis. You need to take triple therapy twice a day for 14 days, usually your primary care physician would repeat H pylori test at least 4-6 weeks after stopping her medications. -you need to discuss with your primary care physician the need to referral to a GI specialist for endoscopy given the severe duodenitis that you had. Activity Level: Activity as Tolerated Discharge Diet: Regular Follow Up Appointments: Cuong Mayes MD [Primary Care Provider] - Forms: [employer] Info Instructions Discharge Comments: Patient should have an upper endoscopy done as an outpatient in 6-8 weeks.
--- NOTE | 2024-08-25 12:48 | PC.NURSE ---
Discharge note: Pt discharged at 1220 [address]. VS WNL. Rates pain from 5-6 in RUQ abdomen, pain meds offered and given with relief. Afebrile. Independent in room. Tolerating regular diet. IV removed and tip intact. Pt belongings and discharge instructions signed and gone through.
--- NOTE | 2024-08-25 14:44 | PC.NURSE ---
Received a call from patient after she discharged as she is having trouble with getting two of her prescriptions filled and needed prior authorization. Explained when we receive the form the provider can try and do her prior auth. Received form and gave it to Dr. Knox
== END 2024-08-25 12:20 | disposition home or self-care (01) | DRG 241 ==
LOC: ED 15:12 → MEDSURG 15:30
PROVIDERS: Student in an Organized Health Care Education/Training Program; Surgery; Admitting Provider Family Medicine; Emergency Provider Family Medicine; PCP Family Medicine; Visit Provider Family Medicine
DX: K29.80 Duodenitis without bleeding (principal); A41.9 Sepsis, unspecified organism; K85.90 Acute pancreatitis without necrosis or infection, unspecified; K21.9 Gastro-esophageal reflux disease without esophagitis; J45.909 Unspecified asthma, uncomplicated; F10.10 Alcohol abuse, uncomplicated; R74.01 Elevation of levels of liver transaminase levels; E66.9 Obesity, unspecified; Z79.1 Long term (current) use of non-steroidal anti-inflammatories (NSAID); I10 Essential (primary) hypertension; Z68.39 Body mass index [BMI] 39.0-39.9, adult; F41.1 Generalized anxiety disorder; F32.A Depression, unspecified; F43.10 Post-traumatic stress disorder, unspecified; F98.8 Other specified behavioral and emotional disorders with onset usually occurring in childhood and adolescence; F15.11 Other stimulant abuse, in remission; F17.210 Nicotine dependence, cigarettes, uncomplicated; E55.9 Vitamin D deficiency, unspecified; G25.81 Restless legs syndrome; G47.00 Insomnia, unspecified; Z90.49 Acquired absence of other specified parts of digestive tract
CPT/HCPCS: 36415; 74177; 80048; 80053; 80076; 81001; 81025; 83605; 83690; 83735; 85025; 85027; 86140; 87040; 87081; 87086; 87338; 94640; 99284; 99285; A9270; J1171; J1650; J1885; J2270; J2405; J2470; J2543; J3372; J3480; J7030; J7050; J7120; Q9967; S4990